=== PATIENT | female | born 1940 | race Two or more races ===

== ENCOUNTER 2017-01-20 06:59 | Emergency (ER) | payer MEDICARE ==
[2017-01-20 07:06] VITALS: RESP 18
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
[2017-01-20 08:43] VITALS: BP 140/65; PULSE 70; TEMP 97.8
== END 2017-01-20 08:52 | disposition home or self-care (01) ==
LOC: EC 06:59
DX: T81.31XA Disruption of external operation (surgical) wound, not elsewhere classified, initial encounter (principal); E78.5 Hyperlipidemia, unspecified; I10 Essential (primary) hypertension; K21.9 Gastro-esophageal reflux disease without esophagitis; F32.9 Major depressive disorder, single episode, unspecified; F17.200 Nicotine dependence, unspecified, uncomplicated; Z79.899 Other long term (current) drug therapy; Z88.0 Allergy status to penicillin; Z88.2 Allergy status to sulfonamides; Z88.5 Allergy status to narcotic agent; Z91.040 Latex allergy status; X58.XXXA Exposure to other specified factors, initial encounter; Y93.89 Activity, other specified
CPT/HCPCS: 87070; 87077; 87186; 87205; 99283

== ENCOUNTER → 2017-02-20 | Outpatient (CLI) | payer MEDICARE ==
--- NOTE | 2017-02-20 12:53 | CT ---
EXAMINATION TYPE: CT ChestAbdPelvis wo con DATE OF EXAM: 02/20/2017 COMPARISON: NONE HISTORY: 77-year-old female with squamous cell carcinoma and left neck mass. TECHNIQUE: Contiguous axial scanning of the chest, abdomen, and pelvis without IV contrast. Coronal a nd sagittal reconstructions performed. CT DLP: 1764 mGycm Automated exposure control for dose reduction was used. FINDINGS: CHEST: Lack of IV contrast limits assessment of the mediastinal, hilar, and vascular structures. The heart is borderline enlarged with trace pericardial fluid. Coronary vessel calcifications are pre sent. Aorta is normal caliber with mild discogenic calcifications. Mildly enlarged mediastinal lymphadenopathy measuring up to 1.4 cm right tracheobronchial angle, 1.1 cm AP window, and 9 mm prevascular space. Diffuse hazy densities throughout the lungs could represent generalized atelectasis. There is mild to moderate upper lung emphysematous change. Flattening of the trachea and mainstem bronchi could refle ct bronchomalacia. Allowing for the extensive hazy densities, no definite suspicious pulmonary nodule is seen. No pleural effusion. ABDOMEN: Lack of IV contrast limits assessment of the solid abdominal viscera, lymph nodes, and vascular struc tures. Liver is enlarged measuring 21.3 cm craniocaudal. Cholecystectomy clips are present. Adrenal glands, spleen, and pancreas show no gross abnormality. Cortical defects involving both kidneys suggest prior infectious or vascular insults. Circumaortic left renal vein. Mild to moderate atherosclerotic calcifications within the abdominal ao rta and iliac arteries. No dilated small bowel, free fluid, or free air. Mild overall stool. A few diverticula in the sigmoid colon. No pericolonic inflammatory change. Pelvis: Bladder is urine distended. Uterus surgically absent. Neither ovary is visualized. No abnormal fluid collection in the pelvis or pelvic lymphadenopathy seen. Bones: Mild degenerative changes at the hips and degenerative changes throughout the lumbar spine. Mild endp late spondylosis mid to lower thoracic spine. No osseous destructive process seen. IMPRESSION: 1. MILDLY ENLARGED MEDIASTINAL LYMPHADENOPATHY MEASURING UP TO 1.4 CM; METASTATIC DISEASE NOT EXCLUDE D. CONSIDER PET CT EVALUATION. 2. MILD TO MODERATE CENTRILOBULAR EMPHYSEMA. THERE IS DIFFUSE HAZY DENSITIES THROUGHOUT THE LUNG SUSP ECTED TO BE SECONDARY TO GENERALIZED ATELECTASIS. 3. HEPATOMEGALY. 4. NOTE THAT THE LACK OF IV CONTRAST DOES DIMINISH THE SENSITIVITY OF THE EXAM.
== END | disposition home or self-care (01) ==
LOC: RADCTMAIN 11:11
PROVIDERS: ATTEND Family Medicine
DX: R59.0 Localized enlarged lymph nodes (principal); J43.9 Emphysema, unspecified; R91.8 Other nonspecific abnormal finding of lung field; R16.0 Hepatomegaly, not elsewhere classified; C44.722 Squamous cell carcinoma of skin of right lower limb, including hip
CPT/HCPCS: 71250; 74176

== ENCOUNTER 2017-02-25 14:35 | Emergency (ER) | payer MEDICARE ==
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
[2017-02-25] MEDS ORDERED: HYDROcodone/APAP 5-325MG 1 EACH TAB PO STA (15:26)
[2017-02-25 16:05] LABS: Basophils # (A) 0.1 k/uL (0-0.2); Basophils % (A) 1 %; CH 33.4; CHCM 33.2; Eosinophils # (A) 0.1 k/uL (0-0.7); Eosinophils % (A) 1 %; HCT 45.1 % (34.0-46.0); Luc # (Auto) 0.14; Luc % (Auto) 3; Lymphocytes # (A) 1.8 k/uL (1.0-4.8); Lymphocytes % (A) 32 %; MCH 33.5 pg (25.0-35.0); MCHC 33.2 g/dL (31.0-37.0); Macrocytosis Slight; Mean Platelet Volume 7.5; Monocytes # (A) 0.3 k/uL (0-1.0); Monocytes % (A) 5 %; Neutrophils # (A) 3.2 k/uL (1.3-7.7); Neutrophils % (A) 58 %; RBC 4.47 m/uL (3.80-5.40); RDW 14.1 % (11.5-15.5); WBC 5.5 k/uL (3.8-10.6); WBC (Perox) 5.01
[2017-02-25 16:15] LABS: Glucose 107 mg/dL (74-99); Total Protein 7.5 g/dL (6.3-8.2)
[2017-02-25 16:16] LABS: ALT 62 U/L (9-52); AST 52 U/L (14-36); Alkaline Phosphatase 105 U/L (38-126); Anion Gap 10 mmol/L; Blood Urea Nitrogen 16 mg/dL (7-17); Calcium 9.4 mg/dL (8.4-10.2); Carbon Dioxide 21 mmol/L (22-30); Chloride 112 mmol/L (98-107); Non-African American GFR(MDRD) 54 (>60 ml/min/1.73 sqM); Potassium 4.7 mmol/L (3.5-5.1); Sodium 143 mmol/L (137-145); Total Bilirubin 0.5 mg/dL (0.2-1.3)
[2017-02-25 16:17] LABS: Appearance,Urine Clear (Clear); Bilirubin,Urine Negative (Negative); Glucose,Urine (UA) Negative (Negative); Ketones,Urine Negative (Negative); Leukocyte Esterase,Urine Negative (Negative); Mucus,Urine Rare /hpf; Nitrite,Urine Negative (Negative); Particle Count 1115; Protein,Urine 1+ (Negative); Specific Gravity,Urine 1.016 (1.001-1.035); Squamous Epithelial Cell,Urine 1 /hpf (0-4); UA Billing (MACRO vs. MICRO) MICRO; Urobilinogen,Urine <2.0 mg/dL (<2.0); WBC,Urine 6 /hpf (0-5)
[2017-02-25 17:19] VITALS: BP 161/77; PULSE 67; RESP 14; TEMP 97.9
== END 2017-02-25 17:18 | disposition home or self-care (01) ==
LOC: EC 14:35
DX: M54.5 Low back pain (principal); R10.9 Unspecified abdominal pain; M25.551 Pain in right hip; K21.9 Gastro-esophageal reflux disease without esophagitis; E78.5 Hyperlipidemia, unspecified; I10 Essential (primary) hypertension; F32.9 Major depressive disorder, single episode, unspecified; F17.200 Nicotine dependence, unspecified, uncomplicated; Z79.899 Other long term (current) drug therapy; Z88.5 Allergy status to narcotic agent; Z91.040 Latex allergy status; Z88.0 Allergy status to penicillin; Z88.2 Allergy status to sulfonamides; Z86.711 Personal history of pulmonary embolism
CPT/HCPCS: 36415; 80053; 81001; 85025; 87086; 99283

== ENCOUNTER → 2017-05-17 | Outpatient (CLI) | payer MEDICARE ==
[2017-05-17 13:00] LABS: Blood Urea Nitrogen 13 mg/dL (7-17); Non-African American GFR(MDRD) 53 (>60 ml/min/1.73 sqM)
--- NOTE | 2017-05-17 14:23 | CT ---
EXAMINATION TYPE: CT chest w con DATE OF EXAM: 05/17/2017 COMPARISON: CT chest, abdomen, and pelvis dated 02/20/2017 HISTORY: Squamous cell carcinoma - Rt Leg, Nodules in Lung, emphysema CT DLP: 585.10 mGycm. Automated Exposure Control for Dose Reduction was Utilized. TECHNIQUE: CT scan of the thorax is performed following with IV Contrast, patient injected with 100m l mL of Visipaque 320. FINDINGS: LUNGS: There is redemonstration of mild to moderate centrilobular emphysematous changes. Scattered ar eas of atelectasis are again seen throughout the lungs. No focal consolidation, pleural effusion or p neumothorax is seen. No pulmonary mass is identified. There is no pleural effusion or pneumothorax se en. The tracheobronchial tree is patent. MEDIASTINUM: When measured in a similar fashion and a similar plane there is overall stability of the enlarged mediastinal lymph nodes with the largest in the pretracheal space measuring 1.5 cm in short axis and the other 2 prominent lymph nodes in the prevascular space measuring 9 mm each. Trace peric ardial effusion has resolved. Heart is again borderline in size. Thoracic aorta is of normal caliber with minimal ossific atheromatous changes. Mild coronary artery calcifications are also evident. The previously seen flattening of the main stem bronchi and trachea is no longer evident. Finding may hav e related to the patient's known underlying COPD versus bronchomalacia. OTHER: Within the visualized upper abdomen there is cortical renal atrophy with a lobulated margin of the renal contours which may relate to multiple remote injuries versus lobulation. The liver i s diffusely hypoattenuated in comparison to the attenuation of the spleen compatible with hepatocellu lar disease/hepatic steatosis. Additionally there is somewhat nodular contour the liver which may rep resent underlying hepatocellular disease. No enlargement of the portal vein. Cholecystectomy clips ar e seen. Adrenal glands are unremarkable. Multilevel degenerative change of the thoracic spine is note d, mild in degree. IMPRESSION: 1. Stability of the mildly enlarged mediastinal lymph nodes that are nonspecific. Again PET CT could be considered for evaluation. Alternatively surveillance is recommended if PET/CT is forgone. 2. Similar mild to moderate centrilobular emphysema with areas of scattered subsegmental atelectasis. No pulmonary mass or new identified pulmonary nodule. 3. Suggestion of hepatocellular disease and/or hepatic steatosis.
== END ==
LOC: RADCTMAIN 12:12
PROVIDERS: ATTEND Internal Medicine Hematology & Oncology
DX: C44.722 Squamous cell carcinoma of skin of right lower limb, including hip (principal); J98.11 Atelectasis
CPT/HCPCS: 82565; 84520; 71260; Q9967

== ENCOUNTER → 2017-11-15 | Outpatient (CLI) | payer MEDICARE ==
--- NOTE | 2017-11-15 14:09 | CT ---
EXAMINATION TYPE: CT chest w con DATE OF EXAM: 11/15/2017 COMPARISON: 05/17/2017 HISTORY: Patient has no complaints at time of study. Follow up study for known lung nodules per peter ent. Lymphadenopathy. CT DLP: 538.1 mGycm Automated exposure control for dose reduction was used. CONTRAST: CT scan of the chest is performed with IV Contrast, patient injected with 80 mL of Isovue 300. FINDINGS: LUNGS: There is redemonstration of mild to moderate centrilobular emphysematous changes. Scattered ar eas of atelectasis are again seen throughout the lungs. No focal consolidation, pleural effusion or p neumothorax is seen. No pulmonary mass is identified. There is no pleural effusion or pneumothorax se en. The tracheobronchial tree is patent. 2 mm nodule at the left lung base is stable. 2 small to dominga acterize MEDIASTINUM: When measured in a similar fashion and a similar plane there is overall stability of the enlarged mediastinal lymph nodes with the largest in the pretracheal space measuring 1.5 cm in short axis and the other 2 prominent lymph nodes in the prevascular space measuring 9 mm each. Trace peric ardial effusion has resolved. Heart is mildly enlarged and there is a trace of pericardial fluid. Thoracic aorta is of normal caliber with minimal ossific atheromatous changes. Mild coronary artery calcifications are also evident. OTHER: Within the visualized upper abdomen there is cortical renal atrophy with a lobulated margin o f the renal contours which may relate to multiple remote injuries versus lobulation. The liver is diffusely hypoattenuated in comparison to the attenuation of the spleen compatible with hepatocell ular disease/hepatic steatosis. Additionally there is somewhat nodular contour the liver which may represent underlying hepatocellula r disease. No enlargement of the portal vein. Cholecystectomy clips are seen. There is stable thickening of the left adrenal gland correlate for hyperplasia. Multilevel degenerative change of the thoracic spine is noted, mild in degree. IMPRESSION: 1. Lymphadenopathy within the mediastinum is stable. 2. Diffuse centrilobular seen appears stable. 3. Correlate for hepatic steatosis or hepatocellular disease. 4. Left lower lobe 2 mm nodule stable.
== END | disposition home or self-care (01) ==
LOC: RADCTMAIN 11:16
PROVIDERS: ATTEND Internal Medicine Hematology & Oncology
DX: C44.722 Squamous cell carcinoma of skin of right lower limb, including hip (principal); R91.1 Solitary pulmonary nodule; R59.0 Localized enlarged lymph nodes; Z91.040 Latex allergy status
CPT/HCPCS: 82565; 84520; 71260; 36415; Q9967

== ENCOUNTER → 2017-12-19 | Outpatient (CLI) | payer MEDICARE ==
--- NOTE | 2017-12-19 13:26 | CT ---
EXAMINATION TYPE: CT chest w con DATE OF EXAM: 12/19/2017 COMPARISON: CT chest November 15, 2017 and older studies. HISTORY: Mediastinal Lymphadenopathy CT DLP: 709 mGycm Automated exposure control for dose reduction was used. CONTRAST: CT scan of the chest is performed with IV Contrast, patient injected with 80 mL of Isovue 300. FINDINGS: LUNGS: There is underlying emphysematous change with bilateral right apical bleb formation redemonstr ated. No suspicious new greater than 5 mm parenchymal nodule or mass is present. No pleural effusion or pneumothorax is seen bilaterally. Tracheobronchial tree is patent. MEDIASTINUM: There are persistent prominent thoracic lymph nodes. Largest pretracheal/pericarinal lym ph node measures 1.5 x 1.4 cm on axial image 29 significant change from initial study February 20, 2017. Other lymph nodes are felt stable. No cardiomegaly or pericardial effusion is seen. Lipomatous hype rtrophy of interarterial septum is redemonstrated seen best axial image 31. Coronary artery calcifica tion is present which is noted marker for coronary artery disease. OTHER: Liver is diffusely low dense consistent with fatty infiltration. Cholecystectomy clips are re demonstrated. There is persistent lobulation and cortical atrophy in both kidneys. There is moderate to severe multilevel spurring in the spine redemonstrated.. IMPRESSION: Stable thoracic adenopathy since February 20, 2017 study. No new mass or adenopathy is prese nt.
== END | disposition home or self-care (01) ==
LOC: RADCTMAIN 11:25
PROVIDERS: ATTEND Internal Medicine Critical Care Medicine
DX: R59.0 Localized enlarged lymph nodes (principal)
CPT/HCPCS: 82565; 84520; 71260; 36415; Q9967

== ENCOUNTER 2018-04-02 21:04 | Inpatient (IN) | payer MEDICARE ==
[2018-04-02] MEDS ORDERED: methylPREDNISolone SOD SUCCI 125 MG/2 ML VIAL IV STA (21:06)
[2018-04-02] MEDS ORDERED: ALBUTEROL NEBULIZED 2.5 MG/3 ML INHALATION STA (21:06)
[2018-04-02] MEDS ORDERED: IPRATROPIUM 0.5 MG/2.5 ML NEBU INHALATION STA (21:06)
[2018-04-02 21:28] LABS: Basophils % (A) 0 %; Eosinophils # (A) 0.1 k/uL (0-0.7); Eosinophils % (A) 1 %; HCT 48.2 % (34.0-46.0); Lymphocytes # (A) 3.1 k/uL (1.0-4.8); Lymphocytes % (A) 25 %; MCH 32.5 pg (25.0-35.0); MCHC 31.1 g/dL (31.0-37.0); MCV 104.6 fL (80.0-100.0); Macrocytosis Slight; Mean Platelet Volume 7.1; Monocytes # (A) 0.7 k/uL (0-1.0); Monocytes % (A) 6 %; Neutrophils # (A) 8.1 k/uL (1.3-7.7); Neutrophils % (A) 66 %; Platelet Count 291 k/uL (150-450); RBC 4.61 m/uL (3.80-5.40); RDW 14.2 % (11.5-15.5); WBC 12.3 k/uL (3.8-10.6)
[2018-04-02 21:42] LABS: Albumin 5.1 g/dL (3.5-5.0); Calcium 10.2 mg/dL (8.4-10.2); Potassium 4.5 mmol/L (3.5-5.1); Total Bilirubin 0.4 mg/dL (0.2-1.3); Total Protein 8.4 g/dL (6.3-8.2)
[2018-04-02] MEDS ORDERED: SODIUM CHLORIDE 0.9% 1,000 ML IV ONE ×2 (21:43→22:33)
[2018-04-02 21:48] LABS: Creatine Kinase 88 U/L (30-135)
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
[2018-04-02 22:00] LABS: Creatine Kinase MB 1.8 ng/mL (0.0-2.4); Troponin I <0.012 ng/mL (0.000-0.034)
--- NOTE | 2018-04-02 22:01 | XR ---
EXAMINATION: XR chest 2V DATE AND TIME: 04/02/2018 9:30 PM ORDERING PROVIDER: Dash Osman MD CLINICAL INDICATION: difficulty breathing TECHNIQUE: AP and lateral COMPARISON: None. DESCRIPTION: There is silhouetting of the right heart border with evidence of consolidative opacity in the right i nfrahilar position. This can correlate with a clinical diagnosis of right middle lobe medial segment and or right medial lower lobe pulmonary infiltration. The pleural spaces are negative. The cardiac silhouette appears mild moderately enlarged. The skeletal structures are intact without focal findings. The overlying soft tissues are prominent. IMPRESSION: Findings suggest right infrahilar pulmonary infiltration; would suggest six-week follow-up radiograph s to prove resolution.
[2018-04-02] MEDS ORDERED: HYDROcodone/APAP 5-325MG 1 EACH TAB PO STA (22:31)
[2018-04-02] MEDS ORDERED: LEVOFLOXACIN 500MG-D5W PMX 500 MG in DEXTROSE/WATER 1 100ML.BAG IVPB STA (22:34)
[2018-04-02] MEDS: SODIUM CHLORIDE 0.9% 1,000 ML IV SCH (22:44)
[2018-04-02] MEDS ORDERED: IPRATROPIUM-ALBUTEROL 3 ML NEB INHALATION PRN (23:14)
[2018-04-02] MEDS ORDERED: SODIUM CHLORIDE 0.9% 500 ML IV ONE (23:16)
[2018-04-03] MEDS: methylPREDNISolone SOD SUCCI 125 MG/2 ML VIAL IV SCH ×5 (00:42→23:06)
[2018-04-03] MEDS: ALPRAZolam 0.25 MG TAB PO PRN ×3 (02:03→22:17)
[2018-04-03] MEDS ORDERED: MORPHINE SULFATE 4 MG/ML SYRINGE IVP STA (03:48)
[2018-04-03] MEDS: IPRATROPIUM-ALBUTEROL 3 ML NEB INHALATION SCH ×4 (07:35→20:37)
[2018-04-03 08:06] LABS: Basophils % (A) 0 %; Eosinophils % (A) 0 %; HCT 40.8 % (34.0-46.0); HGB 13.2 gm/dL (11.4-16.0); Hypochromasia Slight; Lymphocytes % (A) 13 %; MCH 33.9 pg (25.0-35.0); MCHC 32.3 g/dL (31.0-37.0); MCV 105.1 fL (80.0-100.0); Macrocytosis Moderate; Mean Platelet Volume 7.2; Monocytes # (A) 0.2 k/uL (0-1.0); Monocytes % (A) 3 %; Neutrophils # (A) 6.5 k/uL (1.3-7.7); Neutrophils % (A) 84 %; Platelet Count 206 k/uL (150-450); RBC 3.88 m/uL (3.80-5.40); RDW 13.7 % (11.5-15.5); WBC 7.7 k/uL (3.8-10.6)
[2018-04-03 08:21] LABS: Calcium 8.7 mg/dL (8.4-10.2); Potassium 4.9 mmol/L (3.5-5.1); Total Bilirubin 0.3 mg/dL (0.2-1.3); Total Protein 6.9 g/dL (6.3-8.2)
[2018-04-03] MEDS ORDERED: LEVOFLOXACIN 500 MG TAB PO SCH (09:00)
[2018-04-03] MEDS: FAMOTIDINE 20 MG TAB PO SCH ×2 (09:09→22:17)
[2018-04-03] MEDS: DOCUSATE 100 MG CAP PO SCH ×2 (09:09→22:17)
[2018-04-03] MEDS: amLODIPine 5 MG TAB PO SCH (09:09)
[2018-04-03] MEDS: metFORMIN 500 MG TAB PO SCH ×2 (09:09→22:18)
[2018-04-03] MEDS: HYDROCHLOROTHIAZIDE 25 MG TAB PO SCH (09:10)
[2018-04-03] MEDS: POLYETHYLENE GLYCOL 3350 17 GM POWD.PACK PO SCH (09:15)
[2018-04-03] MEDS: SODIUM CHLORIDE 0.9% 1,000 ML IV SCH ×2 (11:26→15:17)
[2018-04-03] MEDS ORDERED: SODIUM CHLORIDE 0.9% 500 ML IV ONE (11:51)
[2018-04-03] MEDS: HYDROcodone/APAP 5-325MG 1 EACH TAB PO PRN ×3 (12:12→22:18)
[2018-04-03] MEDS: INSULIN ASPART 100 UNIT/ML 1 ML 10 ML VIAL SQ SCH ×4 (12:45→22:17)
[2018-04-03] MEDS ORDERED: SODIUM CHLORIDE 0.9% 1,000 ML IV ONE (14:01)
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
[2018-04-03] MEDS: HEPARIN SODIUM,PORCINE 5,000 UNIT/ML 1 ML VIAL SQ SCH ×2 (16:34→23:07)
[2018-04-03 16:38] LABS: Glucose,Whole Blood 287 mg/dL (75-99)
[2018-04-03 16:39] LABS: Glucose,Whole Blood 199 mg/dL (75-99)
[2018-04-03 16:40] LABS: Glucose,Whole Blood 365 mg/dL (75-99)
[2018-04-03] MEDS ORDERED: INSULIN REGULAR 100 UNIT/ML VIAL SQ SCH (17:30)
[2018-04-03 18:21] LABS: Hemoglobin A1C 6.7 % (4.0-6.0)
[2018-04-03 20:05] LABS: Glucose,Whole Blood 180 mg/dL (75-99)
[2018-04-03] MEDS: MIRTAZAPINE 15 MG TAB PO SCH (22:18)
[2018-04-03] MEDS: PRAVASTATIN SODIUM 80 MG TAB PO SCH (22:18)
[2018-04-04] MEDS: methylPREDNISolone SOD SUCCI 125 MG/2 ML VIAL IV SCH ×4 (05:19→23:02)
[2018-04-04] MEDS: HYDROcodone/APAP 5-325MG 1 EACH TAB PO PRN ×4 (05:30→22:41)
[2018-04-04 06:11] LABS: Basophils % (A) 0 %; Eosinophils # (A) 0.1 k/uL (0-0.7); Eosinophils % (A) 1 %; HGB 12.2 gm/dL (11.4-16.0); Hypochromasia Slight; Lymphocytes # (A) 0.9 k/uL (1.0-4.8); Lymphocytes % (A) 11 %; MCH 33.5 pg (25.0-35.0); MCHC 31.4 g/dL (31.0-37.0); MCV 106.6 fL (80.0-100.0); Macrocytosis Moderate; Mean Platelet Volume 7.5; Monocytes # (A) 0.3 k/uL (0-1.0); Monocytes % (A) 4 %; Neutrophils # (A) 7.2 k/uL (1.3-7.7); Neutrophils % (A) 83 %; Platelet Count 209 k/uL (150-450); RBC 3.66 m/uL (3.80-5.40); RDW 14.2 % (11.5-15.5); WBC 8.6 k/uL (3.8-10.6)
[2018-04-04 06:20] LABS: Albumin 3.7 g/dL (3.5-5.0); Calcium 8.9 mg/dL (8.4-10.2); Potassium 4.6 mmol/L (3.5-5.1); Total Bilirubin 0.3 mg/dL (0.2-1.3); Total Protein 6.3 g/dL (6.3-8.2)
[2018-04-04 07:17] LABS: Glucose,Whole Blood 224 mg/dL (75-99)
[2018-04-04] MEDS: HEPARIN SODIUM,PORCINE 5,000 UNIT/ML 1 ML VIAL SQ SCH ×3 (07:33→23:02)
[2018-04-04] MEDS: HYDROCHLOROTHIAZIDE 25 MG TAB PO SCH (07:34)
[2018-04-04] MEDS: FAMOTIDINE 20 MG TAB PO SCH (07:34)
[2018-04-04] MEDS: amLODIPine 5 MG TAB PO SCH (07:34)
[2018-04-04] MEDS: DOCUSATE 100 MG CAP PO SCH ×2 (07:34→22:42)
[2018-04-04] MEDS: ALPRAZolam 0.25 MG TAB PO PRN ×3 (07:34→22:41)
[2018-04-04] MEDS: metFORMIN 500 MG TAB PO SCH ×2 (07:34→22:43)
[2018-04-04] MEDS: POLYETHYLENE GLYCOL 3350 17 GM POWD.PACK PO SCH (07:35)
[2018-04-04] MEDS: IPRATROPIUM-ALBUTEROL 3 ML NEB INHALATION SCH ×5 (07:35→20:32)
[2018-04-04] MEDS: INSULIN ASPART 100 UNIT/ML 1 ML 10 ML VIAL SQ SCH ×7 (07:40→22:42)
--- NOTE | 2018-04-04 08:26 | XR ---
EXAMINATION TYPE: XR chest 2V DATE OF EXAM: 04/04/2018 COMPARISON: 04/02/2018 TECHNIQUE: PA and lateral views submitted. HISTORY: Difficulty breathing FINDINGS: Increased interstitial findings noted. Heart size stable. Atherosclerotic change aorta. Clip overlyin g the left lung apex. Biapical pleural thickening. Subsegmental linear changes at both lung bases. IMPRESSION: 1. Linear changes at both lung bases suggestive of atelectasis. 2. Coarsened interstitium correlate for interstitial pneumonitis or venous congestion.
[2018-04-04] MEDS ORDERED: LEVOFLOXACIN 500 MG TAB PO SCH (09:00)
[2018-04-04] MEDS: SODIUM CHLORIDE 0.9% 1,000 ML IV SCH ×2 (10:14→22:41)
[2018-04-04 11:21] LABS: Glucose,Whole Blood 136 mg/dL (75-99)
--- NOTE | 2018-04-04 15:43 | P.PN ---
Subjective Progress Note Date: 04/04/18 Principal diagnosis: Acute exacerbation of chronic obstructive pulmonary disease. This is a 78-year-old female patient who got hospitalized because of increased cough shortness of breath wheezing over the past few days. She also developed some skeletal chest wall pain due to extensive cough and especially in lower lung man bilaterally more so on the right. Her chest x-ray showing COPD findings without any acute pulmonary infiltrates or pneumonias. No significant leukocytosis. Lactic acid level was 4.6 at time of admission. Cardiac enzymes including troponins are negative, BNP is at 546. The patient is known to me. I 've seen her in the past in my office for mediastinal lymphadenopathy. The patient was being monitored by serial CAT scans. Her last CAT scan of the chest was done on 11/15 2017 and the patient had a stable mediastinal lymph node in addition to a stable left lower lobe pulmonary nodule. This was compared to the earlier CAT scan that was done on 11/15/2017 and 05/17/2017. Based on the stability, no attempts for bronchoscopy was done. Nevertheless, the patient was counseled for smoking cessation she was offered Chantix. She failed to quit smoking and she's been smoking approximately 1 pack of cigarettes a day. She has a nebulizer at home and she has been using DuoNeb nebulized treatments around the clock on as-needed basis. Patient is seen again today 04/04/2018 in follow-up on the regular medical floor. She is currently awake and alert in no acute distress. He's been up ambulating in her room. She is breathing quite a bit easier today as compared to yesterday. Still not quite back to her baseline. She is maintaining good O2 saturations in the 90s on 3 L/m per nasal cannula. She's afebrile. Hemodynamically stable. Blood and sputum cultures reveal no growth to date. White count 8.6. Hemoglobin 12.2. Creatinine 1.00. Lactic acid 2.6. Objective - Vital Signs Vital signs: Vital Signs Temp 97.7 F 04/04/18 05:00 Pulse 95 04/04/18 11:31 Resp 16 04/04/18 05:00 BP 152/68 04/04/18 05:00 Pulse Ox 95 04/04/18 05:00 Intake & Output 04/03/18 04/04/18 04/04/18 18:59 06:59 18:59 Intake Total 1989 800 Balance 1989 800 Intake: Intake, IV Titration 800 800 Amount Sodium Chloride 0.9% 1, 800 800 000 ml @ 100 mls/hr IV . Q10H [facility] Rx#:[id number] Oral 1190 Other: Voiding Method Toilet Toilet # Voids 1 2 4 - Exam General Appearance no diaphoresis, no respiratory distress, speech not interrupted by breaths, no dyspnea, no pallor, not cachectic, well nourished, appears well, obesity HEENT no pursed lip breathing, no jugular venous distention, no mucous membrane cyanosis, no perioral cyanosis, mallampati classification: class 1 Chest no barrel chest, no retractions, no sternocleidomastoid muscle contractions, no supraclavicular retractions, no intercostal retractions, prolonged expiratory wheezing, decreased air movement, no rhonchi, no hyperinflation, (normal) adventitious sounds: rales / crackles: bilaterally: midlung man, decreased air movement Heart no right ventricular heave, no distant heart sounds, no s3 gallop, (normal ) jugular vein: jugular venous distention: by 0cm, (normal) jugular vein GI bowel sounds: hyperactive (borborygmi), bowel sounds: diminished or absent Extremities no cyanosis, no clubbing, no edema Neurologic no decreased mental status, no somnolence, no confusion Assisstive Devices: ambulates with no assitive devices Gait and Mobility: gait WNL, full weight bearing Skin General Appearance normal, (normal) normal except as noted - Labs CBC & Chem 7: 04/04/18 05:56 04/04/18 05:56 Labs: Abnormal Lab Results - Last 24 Hours (Table) 04/03/18 04/03/18 04/03/18 Range/Units 07:42 12:24 14:17 RBC (3.80-5.40) m/uL MCV (80.0-100.0) fL Lymphocytes # (1.0-4.8) k/uL BUN (7-17) mg/dL Glucose (74-99) mg/dL POC Glucose (mg/dL) 365 H 287 H (75-99) mg/dL Hemoglobin A1c 6.7 H (4.0-6.0) % Plasma Lactic Acid David (0.7-2.0) mmol/L 04/03/18 04/03/18 04/04/18 Range/Units 16:18 20:03 05:56 RBC 3.66 L (3.80-5.40) m/uL MCV 106.6 H (80.0-100.0) fL Lymphocytes # 0.9 L (1.0-4.8) k/uL BUN (7-17) mg/dL Glucose (74-99) mg/dL POC Glucose (mg/dL) 199 H 180 H (75-99) mg/dL Hemoglobin A1c (4.0-6.0) % Plasma Lactic Acid David (0.7-2.0) mmol/L 04/04/18 04/04/18 04/04/18 Range/Units 05:56 07:16 07:56 RBC (3.80-5.40) m/uL MCV (80.0-100.0) fL Lymphocytes # (1.0-4.8) k/uL BUN 29 H (7-17) mg/dL Glucose 248 H (74-99) mg/dL POC Glucose (mg/dL) 224 H (75-99) mg/dL Hemoglobin A1c (4.0-6.0) % Plasma Lactic Acid David 2.8 H* (0.7-2.0) mmol/L 04/04/18 04/04/18 Range/Units 11:20 11:46 RBC (3.80-5.40) m/uL MCV (80.0-100.0) fL Lymphocytes # (1.0-4.8) k/uL BUN (7-17) mg/dL Glucose (74-99) mg/dL POC Glucose (mg/dL) 136 H (75-99) mg/dL Hemoglobin A1c (4.0-6.0) % Plasma Lactic Acid David 2.6 H* (0.7-2.0) mmol/L Microbiology - Last 24 Hours (Table) 04/04/18 08:00 Gram Stain - Preliminary Sputum Sputum Culture - Preliminary 04/02/18 21:17 Blood Culture - Preliminary Blood No Growth after 24 hours Assessment and Plan Assessment: Assessment 1 acute COPD exacerbation with secondary shortness of breath. 2 skeletal chest wall pain secondary to cough and 3 chronic smoker 4 Mediastinal lymphadenopathy which is being followed up on outpatient basis by serial CAT scan of the chest, no evidence of any malignancy thus far 5 remote history of pulmonary embolism post hysterectomy many years back 6 obesity. 7 skin cancer 8 hyperlipidemia 9 hypertension 10 diverticular disease 11 degenerative arthritis 12 grief due to the recent loss of a niece and the patient once to be released by Sunday to attend the . Plan 1 The patient was seen and evaluated by Dr. Lira. She is improved today as compared to yesterday. Still not quite back to her baseline. We'll continue with DuoNeb inhalations, IV Solu-Medrol. Add Symbicort. Continue Levaquin. She is again educated regarding the importance of complete smoking cessation. We'll increase her activity as tolerated. We'll continue to follow. I, the cosigning physician, performed a history & physical examination of the patient. Lungs sounds with faint end expiratory wheeze. Diminished. Maintaining good O2 saturations in the 90s on 3 L/m per nasal cannula. I discussed the assessment and plan of care with my nurse practitioner, Yessi Mayberry. I attest to the above note as dictated by her.
[2018-04-04 17:26] LABS: Glucose,Whole Blood 216 mg/dL (75-99)
[2018-04-04 20:11] LABS: Glucose,Whole Blood 89 mg/dL (75-99)
[2018-04-04] MEDS: SYMBICORT 160-4.5 MCG INHALER INHALATION SCH (20:32)
--- NOTE | 2018-04-04 21:37 | P.PN ---
Subjective Progress Note Date: 04/04/18 78-year-old female who presented to the emergency room with a chief complaint of shortness of breath and cough. Patient reports she started feeling short of breath last week. She went to see Dr. Main, her PCP on 2017. She was prescribed antibiotics and a steroid taper. She also complained of increased swelling to her lower extremities. She was given a dose of lasix at that time also. Patient reports her symptoms did not improve so she came to the ER for evaluation. She denies fever or chills. Denies nausea or vomiting. Denies chest pain or pressure. Patient states she has been having regular bowel movements and does not feel constipated. Denies diarrhea. The patient is also very emotional because she was caring for her niece, Kimberlyn, recently who was in hospice secondary to cancer and was staying at her house. She reports her niece on Sunday. The patient feels like she did not do enough for her niece and is feeling very guilty. The patient has a history of COPD, diabetes, GERD, hyperlipidemia, hypertension , chronic back pain secondary to degenerative disc disease, and pulmonary embolus. the patient also reports a history of anxiety and depression. Chest x-ray: findings suggest right infrahilar pulmonary infiltration. Could correlate with diagnosis of right middle lobe medial segment in her right medial lower lobe pulmonary infiltration. Laboratory data upon admission reveals white count of 12.3. Hemoglobin 15.0. Platelet count 291. Sodium 141. Potassium 4.5. BUN 25. Creatinine 1.0. glucose 215. Lactic acid 4.6. AST 65. ALT 71. Magnesium 2.0. troponin negative 1. BNP 546. The patient was admitted to the hospital under the care of Dr. Main. Consultations were placed to pulmonary. 04/04/2018 Patient seen and examined at the bedside. Patient states her breathing has improved since yesterday. She continues to cough frequently. Patient is on 3L NC with oxygen saturations greater than 92%. Patient does not wear home oxygen. Will reassess closer to discharge. Lactic acid this AM is 2.9. Patient received an additional 1.5L in fluid boluses yesterday and has IV fluids running at 100cc /hr. Repeat CXR this morning reveals linear changes at both lung bases suggestive of atelectasis. Coarsened interstititum correlate for interstitial pneumonitis or venous congestion. Patient states her appetite is good. Denies nausea or vomiting. Denies chest pain or pressure. She does report chronic back pain worsened by hospital bed. Patient states she wants to be discharged from the hospital this weekend at the latest to attend her nieces on Sunday. Objective - Vital Signs Vital signs: Vital Signs Temp 97.7 F 04/04/18 05:00 Pulse 94 04/04/18 07:45 Resp 16 04/04/18 05:00 BP 152/68 04/04/18 05:00 Pulse Ox 95 04/04/18 05:00 Intake & Output 04/03/18 04/04/18 04/04/18 18:59 06:59 18:59 Intake Total 1989 Balance 1989 Intake: Intake, IV Titration 800 Amount Sodium Chloride 0.9% 1, 800 000 ml @ 100 mls/hr IV . Q10H [facility] Rx#:[id number] Oral 1190 Other: Voiding Method Toilet # Voids 1 2 - Exam GENERAL: This is a 78-year-old female in no apparent distress at the time of examination. Pleasant and cooperative. HEENT: Head is atraumatic, normocephalic. Pupils are equal, round, and reactive to light. Sclerae anicteric. Conjunctivae are clear. Mucus membranes of the mouth are moist. Neck is supple. RESPIRATORY: Lungs with rhonchi throughout. Expiratory wheezing noted throughout lung man. No rales noted. Frequent nonproductive cough noted. No use of accessory muscles. Patient maintaining oxygen saturation greater than 92 %. No chest wall tenderness is noted on palpation or with deep breathing. CARDIOVASCULAR: Regular rate and rhythm. S1 and S2 noted. No systolic or diastolic murmur auscultated. No JVD noted. No S3 or S4 noted. GASTROINTESTINAL: Abdomen soft and round. Normal active bowel sounds auscultated x 4 quadrants. No pain or tenderness noted upon palpation. INTEGUMENTARY: No cyanosis. No jaundice. No rashes noted. No cellulitis noted. EXTREMITIES: 2+ peripheral pulses. 1+ bilateral LE edema. No calf tenderness noted. NEUROLOGIC: Cranial nerves II-XII intact. PSYCHIATRIC: Awake, alert, and oriented X 3. Appropriate affect. Intact judgement and insight. - Labs CBC & Chem 7: 04/04/18 05:56 04/04/18 05:56 Labs: Abnormal Lab Results - Last 24 Hours (Table) 04/03/18 04/03/18 04/03/18 Range/Units 07:42 11:43 12:24 RBC (3.80-5.40) m/uL MCV (80.0-100.0) fL Lymphocytes # (1.0-4.8) k/uL BUN (7-17) mg/dL Glucose (74-99) mg/dL POC Glucose (mg/dL) 365 H (75-99) mg/dL Hemoglobin A1c 6.7 H (4.0-6.0) % Plasma Lactic Acid David 2.9 H* (0.7-2.0) mmol/L 04/03/18 04/03/18 04/03/18 Range/Units 14:17 16:18 20:03 RBC (3.80-5.40) m/uL MCV (80.0-100.0) fL Lymphocytes # (1.0-4.8) k/uL BUN (7-17) mg/dL Glucose (74-99) mg/dL POC Glucose (mg/dL) 287 H 199 H 180 H (75-99) mg/dL Hemoglobin A1c (4.0-6.0) % Plasma Lactic Acid David (0.7-2.0) mmol/L 04/04/18 04/04/18 04/04/18 Range/Units 05:56 05:56 07:16 RBC 3.66 L (3.80-5.40) m/uL MCV 106.6 H (80.0-100.0) fL Lymphocytes # 0.9 L (1.0-4.8) k/uL BUN 29 H (7-17) mg/dL Glucose 248 H (74-99) mg/dL POC Glucose (mg/dL) 224 H (75-99) mg/dL Hemoglobin A1c (4.0-6.0) % Plasma Lactic Acid David (0.7-2.0) mmol/L 04/04/18 Range/Units 07:56 RBC (3.80-5.40) m/uL MCV (80.0-100.0) fL Lymphocytes # (1.0-4.8) k/uL BUN (7-17) mg/dL Glucose (74-99) mg/dL POC Glucose (mg/dL) (75-99) mg/dL Hemoglobin A1c (4.0-6.0) % Plasma Lactic Acid David 2.8 H* (0.7-2.0) mmol/L Microbiology - Last 24 Hours (Table) 04/02/18 21:17 Blood Culture - Preliminary Blood No Growth after 24 hours Assessment and Plan Plan: ASSESSMENT: Community acquired pneumonia, CXR reveals right infrahilar pulmonary infiltration, ruled out per pulmonary Acute exacerbation of chronic obstructive pulmonary disease Diabetes Mellitus, type II Steroid-induced hyperglycemia Hypertension Hyperlipidemia GERD History of PE Chronic back pain secondary to DDD History of anxiety and depression Nicotine dependence Obesity: BMI 35.1 Mildly elevated LFTs sepsis, ruled out lactic acidosis, improving PLAN: Pulmonary on consult. Appreciate recommendations and input Continue IV steroids: 60mg q6 hours Neubulizer treatments QID and PRN Novolog sliding scale per steroid protocol Sputum culture and blood cultures Continue antibiotics: Levaquin Home meds as appropriate Monitor labs GI prophylaxis: Pepcid 20mg PO BID DVT prophylaxis: Heparin 5000 units subcu every 8 hours Monitor vital signs and address as appropriate Discharge planning: Anticipate patient will return home when stable Further recommendations pending patient's course Nurse practitioner note has been reviewed by physician. Signing provider agrees with the documented findings, assessment, and plan of care.
[2018-04-04] MEDS: MIRTAZAPINE 15 MG TAB PO SCH (22:43)
[2018-04-04] MEDS: PRAVASTATIN SODIUM 80 MG TAB PO SCH (22:43)
[2018-04-05] MEDS: TEMAZEPAM 30 MG CAP PO SCH ×2 (00:01→23:25)
[2018-04-05] MEDS: methylPREDNISolone SOD SUCCI 125 MG/2 ML VIAL IV SCH ×4 (05:38→23:28)
[2018-04-05] MEDS: HYDROcodone/APAP 5-325MG 1 EACH TAB PO PRN ×4 (06:04→21:38)
[2018-04-05 06:58] LABS: Glucose,Whole Blood 175 mg/dL (75-99)
[2018-04-05] MEDS: INSULIN ASPART 100 UNIT/ML 1 ML 10 ML VIAL SQ SCH ×7 (08:18→21:30)
[2018-04-05] MEDS: HYDROCHLOROTHIAZIDE 25 MG TAB PO SCH (08:19)
[2018-04-05] MEDS: amLODIPine 5 MG TAB PO SCH (08:19)
[2018-04-05] MEDS: DOCUSATE 100 MG CAP PO SCH ×2 (08:19→21:31)
[2018-04-05] MEDS: SYMBICORT 160-4.5 MCG INHALER INHALATION SCH ×3 (08:34→20:13)
[2018-04-05] MEDS: IPRATROPIUM-ALBUTEROL 3 ML NEB INHALATION SCH ×5 (08:34→20:13)
[2018-04-05 08:35] LABS: Basophils % (A) 0 %; Eosinophils % (A) 0 %; HCT 40.3 % (34.0-46.0); HGB 12.5 gm/dL (11.4-16.0); Lymphocytes # (A) 0.7 k/uL (1.0-4.8); Lymphocytes % (A) 10 %; MCH 32.7 pg (25.0-35.0); MCV 105.4 fL (80.0-100.0); Macrocytosis Moderate; Mean Platelet Volume 7.2; Monocytes # (A) 0.2 k/uL (0-1.0); Monocytes % (A) 3 %; Neutrophils # (A) 6.1 k/uL (1.3-7.7); Neutrophils % (A) 86 %; Platelet Count 208 k/uL (150-450); RBC 3.83 m/uL (3.80-5.40); RDW 14.2 % (11.5-15.5); WBC 7.1 k/uL (3.8-10.6)
[2018-04-05 08:59] LABS: Albumin 3.8 g/dL (3.5-5.0); Calcium 9.2 mg/dL (8.4-10.2); Potassium 4.6 mmol/L (3.5-5.1); Total Bilirubin 0.5 mg/dL (0.2-1.3); Total Protein 6.5 g/dL (6.3-8.2)
[2018-04-05] MEDS ORDERED: FAMOTIDINE 20 MG TAB PO SCH (09:00)
[2018-04-05] MEDS: SODIUM CHLORIDE 0.9% 1,000 ML IV SCH ×2 (09:07→18:23)
[2018-04-05] MEDS: FAMOTIDINE 20 MG TAB PO SCH ×2 (09:10→21:30)
[2018-04-05] MEDS: ALPRAZolam 0.25 MG TAB PO PRN ×2 (09:10→16:10)
[2018-04-05] MEDS: LEVOFLOXACIN 750MG-D5W PMX 750 MG in DEXTROSE/WATER 1 150ML.BAG IVPB SCH (09:10)
[2018-04-05] MEDS: HEPARIN SODIUM,PORCINE 5,000 UNIT/ML 1 ML VIAL SQ SCH ×3 (09:11→23:26)
[2018-04-05] MEDS: POLYETHYLENE GLYCOL 3350 17 GM POWD.PACK PO SCH (09:12)
[2018-04-05] MEDS: metFORMIN 500 MG TAB PO SCH ×2 (09:12→21:30)
--- NOTE | 2018-04-05 09:21 | P.PN ---
Subjective Progress Note Date: 04/05/18 78-year-old female who presented to the emergency room with a chief complaint of shortness of breath and cough. Patient reports she started feeling short of breath last week. She went to see Dr. Main, her PCP on 2017. She was prescribed antibiotics and a steroid taper. She also complained of increased swelling to her lower extremities. She was given a dose of lasix at that time also. Patient reports her symptoms did not improve so she came to the ER for evaluation. She denies fever or chills. Denies nausea or vomiting. Denies chest pain or pressure. Patient states she has been having regular bowel movements and does not feel constipated. Denies diarrhea. The patient is also very emotional because she was caring for her niece, Kimberlyn, recently who was in hospice secondary to cancer and was staying at her house. She reports her niece on Sunday. The patient feels like she did not do enough for her niece and is feeling very guilty. The patient has a history of COPD, diabetes, GERD, hyperlipidemia, hypertension , chronic back pain secondary to degenerative disc disease, and pulmonary embolus. the patient also reports a history of anxiety and depression. Chest x-ray: findings suggest right infrahilar pulmonary infiltration. Could correlate with diagnosis of right middle lobe medial segment in her right medial lower lobe pulmonary infiltration. Laboratory data upon admission reveals white count of 12.3. Hemoglobin 15.0. Platelet count 291. Sodium 141. Potassium 4.5. BUN 25. Creatinine 1.0. glucose 215. Lactic acid 4.6. AST 65. ALT 71. Magnesium 2.0. troponin negative 1. BNP 546. The patient was admitted to the hospital under the care of Dr. Main. Consultations were placed to pulmonary. 04/04/2018 Patient seen and examined at the bedside. Patient states her breathing has improved since yesterday. She continues to cough frequently. Patient is on 3L NC with oxygen saturations greater than 92%. Patient does not wear home oxygen. Will reassess closer to discharge. Lactic acid this AM is 2.9. Patient received an additional 1.5L in fluid boluses yesterday and has IV fluids running at 100cc /hr. Repeat CXR this morning reveals linear changes at both lung bases suggestive of atelectasis. Coarsened interstititum correlate for interstitial pneumonitis or venous congestion. Patient states her appetite is good. Denies nausea or vomiting. Denies chest pain or pressure. She does report chronic back pain worsened by hospital bed. Patient states she wants to be discharged from the hospital this weekend at the latest to attend her nieces on Sunday. 04/05/2018 Patient seen and examined at the bedside. Patient states her breathing is improved. Patient continues to report nonproductive cough. Patient remains on IV solumedral. She is on 3L NC with oxygen saturations greater than 92%. Patient has been ambulating to the bathroom and in the hallway. Objective - Vital Signs Vital signs: Vital Signs Temp 97.7 F 04/05/18 05:00 Pulse 87 04/05/18 08:44 Resp 16 04/05/18 05:00 BP 137/72 04/05/18 05:00 Pulse Ox 96 04/05/18 05:00 Intake & Output 04/04/18 04/05/18 04/05/18 18:59 06:59 18:59 Intake Total 800 1989 Balance 800 1989 Intake: Intake, IV Titration 800 800 Amount Sodium Chloride 0.9% 1, 800 800 000 ml @ 100 mls/hr IV . Q10H [facility] Rx#:[id number] Oral 1190 Other: Voiding Method Toilet Toilet # Voids 4 2 - Exam GENERAL: This is a 78-year-old female in no apparent distress at the time of examination. Pleasant and cooperative. HEENT: Head is atraumatic, normocephalic. Pupils are equal, round, and reactive to light. Sclerae anicteric. Conjunctivae are clear. Mucus membranes of the mouth are moist. Neck is supple. RESPIRATORY: Expiratory wheezing noted throughout lung man, improved from yesterday. Frequent nonproductive cough noted. No use of accessory muscles. Patient maintaining oxygen saturation greater than 92%. No chest wall tenderness is noted on palpation or with deep breathing. CARDIOVASCULAR: Regular rate and rhythm. S1 and S2 noted. No systolic or diastolic murmur auscultated. No JVD noted. No S3 or S4 noted. GASTROINTESTINAL: Abdomen soft and round. Normal active bowel sounds auscultated x 4 quadrants. No pain or tenderness noted upon palpation. INTEGUMENTARY: No cyanosis. No jaundice. No rashes noted. No cellulitis noted. EXTREMITIES: 2+ peripheral pulses. 1+ bilateral LE edema. No calf tenderness noted. NEUROLOGIC: Cranial nerves II-XII intact. PSYCHIATRIC: Awake, alert, and oriented X 3. Appropriate affect. Intact judgement and insight. - Labs CBC & Chem 7: 04/05/18 07:32 04/05/18 07:32 Labs: Abnormal Lab Results - Last 24 Hours (Table) 04/04/18 04/04/18 04/04/18 Range/Units 11:20 11:46 17:25 MCV (80.0-100.0) fL Lymphocytes # (1.0-4.8) k/uL BUN (7-17) mg/dL Creatinine (0.52-1.04) mg/dL Glucose (74-99) mg/dL POC Glucose (mg/dL) 136 H 216 H (75-99) mg/dL Plasma Lactic Acid David 2.6 H* (0.7-2.0) mmol/L 04/05/18 04/05/18 04/05/18 Range/Units 06:57 07:32 07:32 MCV 105.4 H (80.0-100.0) fL Lymphocytes # 0.7 L (1.0-4.8) k/uL BUN 34 H (7-17) mg/dL Creatinine 1.05 H (0.52-1.04) mg/dL Glucose 180 H (74-99) mg/dL POC Glucose (mg/dL) 175 H (75-99) mg/dL Plasma Lactic Acid David (0.7-2.0) mmol/L Microbiology - Last 24 Hours (Table) 04/02/18 21:17 Blood Culture - Preliminary Blood No Growth after 48 hours 04/04/18 08:00 Gram Stain - Preliminary Sputum Sputum Culture - Preliminary Assessment and Plan Plan: ASSESSMENT: Community acquired pneumonia, CXR reveals right infrahilar pulmonary infiltration, ruled out per pulmonary Acute exacerbation of chronic obstructive pulmonary disease Diabetes Mellitus, type II Steroid-induced hyperglycemia Hypertension Hyperlipidemia GERD History of PE Chronic back pain secondary to DDD History of anxiety and depression Nicotine dependence Obesity: BMI 35.1 Mildly elevated LFTs sepsis, ruled out lactic acidosis, improving PLAN: Pulmonary on consult. Appreciate recommendations and input Continue IV steroids: 60mg q6 hours. Wean per pulmonary Neubulizer treatments QID and PRN Novolog sliding scale per steroid protocol Continue antibiotics: Levaquin Decrease IV fluids to 60cc/hr Complete home oxygen assessment Increase pepcid to 20mg BID per patient request Home meds as appropriate Monitor labs GI prophylaxis: Pepcid 20mg PO BID DVT prophylaxis: Heparin 5000 units subcu every 8 hours Monitor vital signs and address as appropriate Discharge planning: Anticipate patient will return home when stable. Patient would like to be discharged Sunday at the lastest if possible so she can attend her nieces . Further recommendations pending patient's course Nurse practitioner note has been reviewed by physician. Signing provider agrees with the documented findings, assessment, and plan of care.
[2018-04-05 11:33] LABS: Glucose,Whole Blood 321 mg/dL (75-99)
[2018-04-05 13:17] LABS: Glucose,Whole Blood 196 mg/dL (75-99)
--- NOTE | 2018-04-05 14:31 | P.PN ---
Subjective Progress Note Date: 04/05/18 Principal diagnosis: Acute exacerbation of chronic obstructive pulmonary disease. This is a 78-year-old female patient who got hospitalized because of increased cough shortness of breath wheezing over the past few days. She also developed some skeletal chest wall pain due to extensive cough and especially in lower lung man bilaterally more so on the right. Her chest x-ray showing COPD findings without any acute pulmonary infiltrates or pneumonias. No significant leukocytosis. Lactic acid level was 4.6 at time of admission. Cardiac enzymes including troponins are negative, BNP is at 546. The patient is known to me. I 've seen her in the past in my office for mediastinal lymphadenopathy. The patient was being monitored by serial CAT scans. Her last CAT scan of the chest was done on 11/15 2017 and the patient had a stable mediastinal lymph node in addition to a stable left lower lobe pulmonary nodule. This was compared to the earlier CAT scan that was done on 11/15/2017 and 05/17/2017. Based on the stability, no attempts for bronchoscopy was done. Nevertheless, the patient was counseled for smoking cessation she was offered Chantix. She failed to quit smoking and she's been smoking approximately 1 pack of cigarettes a day. She has a nebulizer at home and she has been using DuoNeb nebulized treatments around the clock on as-needed basis. Patient is seen again today 04/04/2018 in follow-up on the regular medical floor. She is currently awake and alert in no acute distress. He's been up ambulating in her room. She is breathing quite a bit easier today as compared to yesterday. Still not quite back to her baseline. She is maintaining good O2 saturations in the 90s on 3 L/m per nasal cannula. She's afebrile. Hemodynamically stable. Blood and sputum cultures reveal no growth to date. White count 8.6. Hemoglobin 12.2. Creatinine 1.00. Lactic acid 2.6. The patient is seen again today 04/05/2018 in follow-up on the regular medical floor. She is currently awake and alert in no acute distress. She still has a loose nonproductive cough. Still dyspneic with minimal exertion. Not much improvement. Sputum culture was inadequate. Blood culture reveals no growth. White count 7.1. Creatinine 1.05. He is continued on DuoNeb inhalations, Symbicort, IV Solu-Medrol, Levaquin. Objective - Vital Signs Vital signs: Vital Signs Temp 97.7 F 04/05/18 05:00 Pulse 92 04/05/18 12:31 Resp 18 04/05/18 08:00 BP 137/72 04/05/18 05:00 Pulse Ox 94 L 04/05/18 13:36 Intake & Output 04/04/18 04/05/18 04/05/18 18:59 06:59 18:59 Intake Total 800 1989 Balance 800 1989 Weight 89.811 kg Intake: Intake, IV Titration 800 800 Amount Sodium Chloride 0.9% 1, 800 800 000 ml @ 60 mls/hr IV . [id number] [facility] Rx#:[id number] Oral 1190 Other: Voiding Method Toilet Toilet # Voids 4 2 2 - Exam General Appearance no diaphoresis, no respiratory distress, speech not interrupted by breaths, no dyspnea, no pallor, not cachectic, well nourished, appears well, obesity HEENT no pursed lip breathing, no jugular venous distention, no mucous membrane cyanosis, no perioral cyanosis, mallampati classification: class 1 Chest no barrel chest, no retractions, no sternocleidomastoid muscle contractions, no supraclavicular retractions, no intercostal retractions, prolonged expiratory wheezing, decreased air movement, no rhonchi, no hyperinflation, (normal) adventitious sounds: rales / crackles: bilaterally: midlung man, decreased air movement Heart no right ventricular heave, no distant heart sounds, no s3 gallop, (normal ) jugular vein: jugular venous distention: by 0cm, (normal) jugular vein GI bowel sounds: hyperactive (borborygmi), bowel sounds: diminished or absent Extremities no cyanosis, no clubbing, no edema Neurologic no decreased mental status, no somnolence, no confusion Assisstive Devices: ambulates with no assitive devices Gait and Mobility: gait WNL, full weight bearing Skin General Appearance normal, (normal) normal except as noted - Labs CBC & Chem 7: 04/05/18 07:32 04/05/18 07:32 Labs: Abnormal Lab Results - Last 24 Hours (Table) 04/04/18 04/05/18 04/05/18 Range/Units 17:25 06:57 07:32 MCV 105.4 H (80.0-100.0) fL Lymphocytes # 0.7 L (1.0-4.8) k/uL BUN (7-17) mg/dL Creatinine (0.52-1.04) mg/dL Glucose (74-99) mg/dL POC Glucose (mg/dL) 216 H 175 H (75-99) mg/dL 04/05/18 04/05/18 04/05/18 Range/Units 07:32 11:32 13:15 MCV (80.0-100.0) fL Lymphocytes # (1.0-4.8) k/uL BUN 34 H (7-17) mg/dL Creatinine 1.05 H (0.52-1.04) mg/dL Glucose 180 H (74-99) mg/dL POC Glucose (mg/dL) 321 H 196 H (75-99) mg/dL Microbiology - Last 24 Hours (Table) 04/02/18 21:17 Blood Culture - Preliminary Blood No Growth after 48 hours 04/04/18 08:00 Gram Stain - Preliminary Sputum Sputum Culture - Preliminary Assessment and Plan Assessment: Assessment 1 acute on chronic hypoxic respiratory failure secondary to acute COPD exacerbation with secondary shortness of breath. 2 skeletal chest wall pain secondary to cough and 3 chronic smoker 4 Mediastinal lymphadenopathy which is being followed up on outpatient basis by serial CAT scan of the chest, no evidence of any malignancy thus far 5 remote history of pulmonary embolism post hysterectomy many years back 6 obesity. 7 skin cancer 8 hyperlipidemia 9 hypertension 10 diverticular disease 11 degenerative arthritis 12 grief due to the recent loss of a niece and the patient once to be released by Sunday to attend the . Plan 1 The patient was seen and evaluated by Dr. Lira. He has been slow to progress. Still not quite back to her baseline. We will go ahead and plan for bronchoscopy with BAL in the a.m. We'll continue with DuoNeb inhalations, IV Solu-Medrol. Add Symbicort. Continue Levaquin. She is again educated regarding the importance of complete smoking cessation. We'll increase her activity as tolerated. We'll continue to follow. I, the cosigning physician, performed a history & physical examination of the patient. Lungs sounds with faint end expiratory wheeze, few scattered rhonchi. Diminished. Maintaining good O2 saturations in the 90s on 3 L/m per nasal cannula. I discussed the assessment and plan of care with my nurse practitioner , Yessi Mayberry. I attest to the above note as dictated by her.
[2018-04-05 17:14] LABS: Glucose,Whole Blood 120 mg/dL (75-99)
[2018-04-05 19:55] LABS: Glucose,Whole Blood 164 mg/dL (75-99)
[2018-04-05] MEDS: PRAVASTATIN SODIUM 80 MG TAB PO SCH (21:31)
[2018-04-05] MEDS: MIRTAZAPINE 15 MG TAB PO SCH (21:31)
[2018-04-06] MEDS: HYDROcodone/APAP 5-325MG 1 EACH TAB PO PRN ×5 (02:34→21:23)
[2018-04-06] MEDS: ALPRAZolam 0.25 MG TAB PO PRN ×3 (03:48→22:18)
[2018-04-06] MEDS: methylPREDNISolone SOD SUCCI 125 MG/2 ML VIAL IV SCH ×3 (05:02→17:20)
[2018-04-06 07:11] LABS: Glucose,Whole Blood 188 mg/dL (75-99)
[2018-04-06] MEDS: DOCUSATE 100 MG CAP PO SCH ×2 (08:03→21:22)
[2018-04-06] MEDS: amLODIPine 5 MG TAB PO SCH (08:04)
[2018-04-06] MEDS: INSULIN ASPART 100 UNIT/ML 1 ML 10 ML VIAL SQ SCH ×7 (08:04→21:31)
[2018-04-06] MEDS: FAMOTIDINE 20 MG TAB PO SCH ×2 (08:04→21:23)
[2018-04-06] MEDS: HYDROCHLOROTHIAZIDE 25 MG TAB PO SCH (08:05)
[2018-04-06] MEDS: POLYETHYLENE GLYCOL 3350 17 GM POWD.PACK PO SCH (08:05)
[2018-04-06] MEDS: HEPARIN SODIUM,PORCINE 5,000 UNIT/ML 1 ML VIAL SQ SCH ×2 (08:05→16:02)
[2018-04-06] MEDS: metFORMIN 500 MG TAB PO SCH ×2 (08:06→21:23)
[2018-04-06] MEDS: SYMBICORT 160-4.5 MCG INHALER INHALATION SCH ×2 (08:32→20:33)
[2018-04-06] MEDS: IPRATROPIUM-ALBUTEROL 3 ML NEB INHALATION SCH ×4 (08:32→20:33)
[2018-04-06 08:40] LABS: Basophils % (A) 0 %; Eosinophils % (A) 1 %; HCT 39.9 % (34.0-46.0); HGB 12.6 gm/dL (11.4-16.0); Lymphocytes # (A) 0.6 k/uL (1.0-4.8); Lymphocytes % (A) 11 %; MCH 33.1 pg (25.0-35.0); MCHC 31.5 g/dL (31.0-37.0); MCV 104.9 fL (80.0-100.0); Macrocytosis Moderate; Mean Platelet Volume 7.2; Monocytes # (A) 0.2 k/uL (0-1.0); Monocytes % (A) 4 %; Neutrophils # (A) 4.9 k/uL (1.3-7.7); Neutrophils % (A) 84 %; Platelet Count 206 k/uL (150-450); RDW 14.1 % (11.5-15.5); WBC 5.9 k/uL (3.8-10.6)
[2018-04-06 08:55] LABS: Albumin 3.7 g/dL (3.5-5.0); Calcium 9.2 mg/dL (8.4-10.2); Total Bilirubin 0.5 mg/dL (0.2-1.3); Total Protein 6.4 g/dL (6.3-8.2)
[2018-04-06] MEDS ORDERED: LIDOCAINE 1% INJ 10MG/ML (20 ML MDV) ONE (10:56)
[2018-04-06] MEDS ORDERED: PROPOFOL 10 MG/ML 20 ML VIAL IV ONE (10:56)
[2018-04-06] MEDS ORDERED: IV FLUID CONTINUATION 700 ML IV ONE (10:56)
[2018-04-06] MEDS: SODIUM CHLORIDE 0.9% 1,000 ML IV SCH ×2 (11:12→16:01)
[2018-04-06] MEDS ORDERED: LIDOCAINE 2% INJ 20 MG/ML INTRATRACH ONE (11:19)
--- NOTE | 2018-04-06 11:27 | P.PN ---
Subjective Progress Note Date: 04/06/18 This is a 78-year-old female patient who got hospitalized because of increased cough shortness of breath wheezing over the past few days. She also developed some skeletal chest wall pain due to extensive cough and especially in lower lung man bilaterally more so on the right. Her chest x-ray showing COPD findings without any acute pulmonary infiltrates or pneumonias. No significant leukocytosis. Lactic acid level was 4.6 at time of admission. Cardiac enzymes including troponins are negative, BNP is at 546. The patient is known to me. I 've seen her in the past in my office for mediastinal lymphadenopathy. The patient was being monitored by serial CAT scans. Her last CAT scan of the chest was done on 11/15 2017 and the patient had a stable mediastinal lymph node in addition to a stable left lower lobe pulmonary nodule. This was compared to the earlier CAT scan that was done on 11/15/2017 and 05/17/2017. Based on the stability, no attempts for bronchoscopy was done. Nevertheless, the patient was counseled for smoking cessation she was offered Chantix. She failed to quit smoking and she's been smoking approximately 1 pack of cigarettes a day. She has a nebulizer at home and she has been using DuoNeb nebulized treatments around the clock on as-needed basis. Patient is seen again today 04/04/2018 in follow-up on the regular medical floor. She is currently awake and alert in no acute distress. He's been up ambulating in her room. She is breathing quite a bit easier today as compared to yesterday. Still not quite back to her baseline. She is maintaining good O2 saturations in the 90s on 3 L/m per nasal cannula. She's afebrile. Hemodynamically stable. Blood and sputum cultures reveal no growth to date. White count 8.6. Hemoglobin 12.2. Creatinine 1.00. Lactic acid 2.6. The patient is seen again today 04/05/2018 in follow-up on the regular medical floor. She is currently awake and alert in no acute distress. She still has a loose nonproductive cough. Still dyspneic with minimal exertion. Not much improvement. Sputum culture was inadequate. Blood culture reveals no growth. White count 7.1. Creatinine 1.05. He is continued on DuoNeb inhalations, Symbicort, IV Solu-Medrol, Levaquin. On 04/06/2008. Seeing this patient for a follow-up. The patient was having a barky congested cough and the plan is to go ahead and do a flexible bronchoscopy today for a therapeutic airway suctioning and the bronchioloalveolar lavage. She is on a combination of DuoNeb, Symbicort and IV Solu-Medrol. She is covered clear with Levaquin. I suspect an underlying component of tracheobronchomalacia. She her white cell count is at 5.9. No significant electrodes abnormalities. She is afebrile.. Objective - Vital Signs Vital signs: Vital Signs Temp 97.8 F 04/06/18 05:00 Pulse 90 04/06/18 08:48 Resp 16 04/06/18 05:00 BP 166/73 04/06/18 05:00 Pulse Ox 95 04/06/18 05:00 Intake & Output 04/05/18 04/06/18 04/06/18 18:59 06:59 18:59 Intake Total 1890 Balance 1890 Weight 89.811 kg 89.811 kg Intake: Intake, IV Titration 720 Amount Sodium Chloride 0.9% 1, 720 000 ml @ 60 mls/hr IV . [id number] [facility] Rx#:[id number] Oral 1170 Other: Voiding Method Toilet Toilet # Voids 2 2 1 - Exam General Appearance no diaphoresis, no respiratory distress, speech not interrupted by breaths, no dyspnea, no pallor, not cachectic, well nourished, appears well, obesity HEENT no pursed lip breathing, no jugular venous distention, no mucous membrane cyanosis, no perioral cyanosis, mallampati classification: class 1 Chest no barrel chest, no retractions, no sternocleidomastoid muscle contractions, no supraclavicular retractions, no intercostal retractions, prolonged expiratory wheezing, decreased air movement, no rhonchi, no hyperinflation, (normal) adventitious sounds: rales / crackles: bilaterally: midlung man, decreased air movement Heart no right ventricular heave, no distant heart sounds, no s3 gallop, (normal ) jugular vein: jugular venous distention: by 0cm, (normal) jugular vein GI bowel sounds: hyperactive (borborygmi), bowel sounds: diminished or absent Extremities no cyanosis, no clubbing, no edema Neurologic no decreased mental status, no somnolence, no confusion Assisstive Devices: ambulates with no assitive devices Gait and Mobility: gait WNL, full weight bearing Skin General Appearance normal, (normal) normal except as noted - Labs CBC & Chem 7: 04/06/18 07:08 04/06/18 07:08 Labs: Abnormal Lab Results - Last 24 Hours (Table) 04/05/18 04/05/18 04/05/18 Range/Units 11:32 13:15 17:13 MCV (80.0-100.0) fL Lymphocytes # (1.0-4.8) k/uL BUN (7-17) mg/dL Glucose (74-99) mg/dL POC Glucose (mg/dL) 321 H 196 H 120 H (75-99) mg/dL AST (14-36) U/L ALT (9-52) U/L 04/05/18 04/06/18 04/06/18 Range/Units 19:54 07:08 07:08 MCV 104.9 H (80.0-100.0) fL Lymphocytes # 0.6 L (1.0-4.8) k/uL BUN 37 H (7-17) mg/dL Glucose 187 H (74-99) mg/dL POC Glucose (mg/dL) 164 H (75-99) mg/dL AST 39 H (14-36) U/L ALT 56 H (9-52) U/L 04/06/18 Range/Units 07:08 MCV (80.0-100.0) fL Lymphocytes # (1.0-4.8) k/uL BUN (7-17) mg/dL Glucose (74-99) mg/dL POC Glucose (mg/dL) 188 H (75-99) mg/dL AST (14-36) U/L ALT (9-52) U/L Microbiology - Last 24 Hours (Table) 04/02/18 21:17 Blood Culture - Preliminary Blood No Growth after 72 hours Assessment and Plan Plan: Assessment 1 acute on chronic hypoxic respiratory failure secondary to acute COPD exacerbation with secondary shortness of breath. 2 skeletal chest wall pain secondary to cough and 3 chronic smoker 4 Mediastinal lymphadenopathy which is being followed up on outpatient basis by serial CAT scan of the chest, no evidence of any malignancy thus far 5 remote history of pulmonary embolism post hysterectomy many years back 6 obesity. 7 skin cancer 8 hyperlipidemia 9 hypertension 10 diverticular disease 11 degenerative arthritis 12 grief due to the recent loss of a niece and the patient once to be released by Sunday to attend the . Plan Continue same treatment. Continue IV Solu-Medrol, DuoNeb, Symbicort and Levaquin. Bronchoscopy today for therapeutic airway suctioning and a bronchial lavage.
--- NOTE | 2018-04-06 11:30 | P.PCN ---
Date of Procedure: 04/06/18 Preoperative Diagnosis: Tracheobronchomalacia, tracheobronchitis, COPD Postoperative Diagnosis: Tracheobronchomalacia, tracheobronchitis, COPD Procedure(s) Performed: Flexible bronchoscopy, BAL of the lingula Anesthesia: MAC Surgeon: Ayleen Lira Estimated Blood Loss (ml): 0 Pathology: none sent Condition: stable Disposition: floor Operative Findings: This procedure was done under conscious sedation with anesthetic agents being administered by anesthesia the bedside. After achieving adequate sedation the flexible bronchoscope was inserted through the right nostril. Examination of the posterior oropharynx, larynx, epiglottis, vallecula, arytenoids of vocal cords was done. Upper airway structures were all within normal limits. A total of 2 mL of 1% lidocaine was applied to the vocal cords and following that the bronchoscope was advanced into the upper trachea. There was a component of severe tracheal bronchomalacia with dynamic obstruction of the trachea and bilateral mainstem bronchi with exhalation and cough and mechanism's. The patient also had looseness for secretions retained throughout the patient's airways. Therapeutic airway suctioning was done. The underlying bronchial mucosa was inflamed and erythematous and red. The visualized airways included the trachea, bilateral mainstem bronchi, right upper lobe bronchus, right middle lobe bronchus, right lower lobe bronchus, bronchus intermedius, left upper lobe bronchus, left lower lobe bronchus and the various segments and subsegments. All of these airways were involved with malacia yet there were quite patent. At the end of the procedure. A bronchioloalveolar lavage of the lingular segment was done. A total of 80 mL of fluid was infused and 25 mL of bloody aspirate was obtained. Therapeutic airway suctioning was done. The bronchoscope was removed and the patient was transferred to recovery in stable condition. She'll be chest and back to her room on the medical floor. No complications. The BAL will be sent for microbial analysis.
[2018-04-06] MEDS ORDERED: IV FLUID CONTINUATION 500 ML IV ONE (11:31)
[2018-04-06 12:31] LABS: Glucose,Whole Blood 196 mg/dL (75-99)
--- NOTE | 2018-04-06 12:35 | P.PN ---
Subjective Progress Note Date: 04/06/18 Principal diagnosis: Community-acquired pneumonia Mrs. Huddleston is a 78-year-old female with a past medical history of COPD, diabetes , GERD, hyperlipidemia, hypertension, chronic low back pain secondary to DJD, and pulmonary embolus admitted to the hospital with a chief complaint of shortness of breath and cough. Patient was prescribed antibiotics and a steroid taper that she did not respond to and so admitted to the hospital for further management. Patient has been admitted to the hospital under Dr. Jose David dickey and pulmonary has been following the patient closely. On 04/06/2018 Patient was seen and examined at the bedside. Patient had a bronchoscopy done by Dr. Lira this morning. Patient still continues to report nonproductive cough. She is on 3 L saturating at 92%. Patient's daughter at the bedside and request that her mother be discharged tomorrow as they have attend a on Sunday. On review of systems: Patient denies having any fevers chills or rigors. Difficulty in breathing at baseline. Cough still present but is nonproductive. Patient denies having any abdominal pain nausea vomiting or diarrhea. No dysuria or hematuria. Objective - Vital Signs Vital signs: Vital Signs Temp 97.8 F 04/06/18 05:00 Pulse 96 04/06/18 12:21 Resp 26 H 04/06/18 11:51 BP 151/76 04/06/18 11:51 Pulse Ox 94 L 04/06/18 11:51 Intake & Output 04/05/18 04/06/18 04/06/18 18:59 06:59 18:59 Intake Total 1890 700 Balance 1890 700 Weight 89.811 kg 89.811 kg Intake: Intake, IV Titration 720 700 Amount Levofloxacin 750Mg-D5w 100 Pmx 750 mg In Dextrose/ Water 1 150ml.bag @ 100 mls/hr IVPB Q48H JACKIE Rx#: [id number] Sodium Chloride 0.9% 1, 720 600 000 ml @ 60 mls/hr IV . [id number] JACKIE Rx#:[id number] Oral 1170 0 Other: Voiding Method Toilet Toilet # Voids 2 2 2 - Exam GENERAL: This is a 78-year-old female in no apparent distress at the time of examination. Pleasant and cooperative. HEENT: Head is atraumatic, normocephalic. Pupils are equal, round, and reactive to light. Sclerae anicteric. Conjunctivae are clear. Mucus membranes of the mouth are moist. Neck is supple. RESPIRATORY: Expiratory wheezing noted throughout lung man, improved from yesterday. Frequent nonproductive cough noted. No use of accessory muscles. Patient maintaining oxygen saturation greater than 92%. No chest wall tenderness is noted on palpation or with deep breathing. CARDIOVASCULAR: Regular rate and rhythm. S1 and S2 noted. No systolic or diastolic murmur auscultated. No JVD noted. No S3 or S4 noted. GASTROINTESTINAL: Abdomen soft and round. Normal active bowel sounds auscultated x 4 quadrants. No pain or tenderness noted upon palpation. INTEGUMENTARY: No cyanosis. No jaundice. No rashes noted. No cellulitis noted. EXTREMITIES: 2+ peripheral pulses. 1+ bilateral LE edema. No calf tenderness noted. NEUROLOGIC: Cranial nerves II-XII intact. PSYCHIATRIC: Awake, alert, and oriented X 3. Appropriate affect. Intact judgement and insight. - Labs CBC & Chem 7: 04/06/18 07:08 04/06/18 07:08 Labs: Abnormal Lab Results - Last 24 Hours (Table) 04/05/18 04/05/18 04/05/18 Range/Units 13:15 17:13 19:54 MCV (80.0-100.0) fL Lymphocytes # (1.0-4.8) k/uL BUN (7-17) mg/dL Glucose (74-99) mg/dL POC Glucose (mg/dL) 196 H 120 H 164 H (75-99) mg/dL AST (14-36) U/L ALT (9-52) U/L 04/06/18 04/06/18 04/06/18 Range/Units 07:08 07:08 07:08 MCV 104.9 H (80.0-100.0) fL Lymphocytes # 0.6 L (1.0-4.8) k/uL BUN 37 H (7-17) mg/dL Glucose 187 H (74-99) mg/dL POC Glucose (mg/dL) 188 H (75-99) mg/dL AST 39 H (14-36) U/L ALT 56 H (9-52) U/L Microbiology - Last 24 Hours (Table) 04/02/18 21:17 Blood Culture - Preliminary Blood No Growth after 72 hours Assessment and Plan Assessment: ASSESSMENT Community acquired pneumonia, CXR reveals right infrahilar pulmonary infiltration, ruled out per pulmonary Acute exacerbation of chronic obstructive pulmonary disease Diabetes Mellitus, type II Steroid-induced hyperglycemia Hypertension Hyperlipidemia GERD History of PE Chronic back pain secondary to DDD History of anxiety and depression Nicotine dependence Obesity: BMI 35.1 Mildly elevated LFTs PLAN: To continue on Levaquin, IV steroids and breathing treatments. GI and DVT prophylaxis. Awaiting BAL cultures. Patient requests that her Xanax dose to be increased as she feels still feeling anxious with the current doses. Discharge planning: Anticipate patient will return home when stable. Patient would like to be discharged Sunday at the lastest if possible so she can attend her nieces . Further recommendations pending patient's course
[2018-04-06 15:25] LABS: Color,BF Red
[2018-04-06 15:26] LABS: Appearance,BF Bloody
[2018-04-06 15:27] LABS: Nucleated Cells, Body Fluid 150 /uL; RBC, Body Fluid 8950 /uL
[2018-04-06 15:31] LABS: Mononuclear WBC,Body Fluid 39 %; Polynuclear WBC,Body Fluid 59 %; Total Cells Counted,Body Fluid 100
[2018-04-06] MEDS ORDERED: LOPERAMIDE 2 MG CAP PO PRN (15:56)
[2018-04-06] MEDS ORDERED: PROCHLORPERAZINE 10 MG TAB PO PRN (15:57)
[2018-04-06 17:23] LABS: Glucose,Whole Blood 147 mg/dL (75-99)
[2018-04-06 20:01] LABS: Glucose,Whole Blood 271 mg/dL (75-99)
[2018-04-06] MEDS: MIRTAZAPINE 15 MG TAB PO SCH (21:23)
[2018-04-06] MEDS: PRAVASTATIN SODIUM 80 MG TAB PO SCH (21:23)
[2018-04-06 22:24] VITALS: RESP 16
[2018-04-07] MEDS: HEPARIN SODIUM,PORCINE 5,000 UNIT/ML 1 ML VIAL SQ SCH ×2 (00:07→06:49)
[2018-04-07] MEDS: TEMAZEPAM 30 MG CAP PO SCH (00:07)
[2018-04-07] MEDS: methylPREDNISolone SOD SUCCI 125 MG/2 ML VIAL IV SCH ×2 (00:07→05:44)
[2018-04-07 02:08] LABS: Glucose,Whole Blood 154 mg/dL (75-99)
[2018-04-07] MEDS: HYDROcodone/APAP 5-325MG 1 EACH TAB PO PRN ×3 (03:55→12:08)
[2018-04-07 05:59] VITALS: BP 148/67; TEMP 97
[2018-04-07] MEDS: ALPRAZolam 0.25 MG TAB PO PRN (06:49)
[2018-04-07] MEDS: FAMOTIDINE 20 MG TAB PO SCH (06:50)
[2018-04-07] MEDS: HYDROCHLOROTHIAZIDE 25 MG TAB PO SCH (06:50)
[2018-04-07] MEDS: metFORMIN 500 MG TAB PO SCH (06:50)
[2018-04-07] MEDS: POLYETHYLENE GLYCOL 3350 17 GM POWD.PACK PO SCH (06:51)
[2018-04-07] MEDS: amLODIPine 5 MG TAB PO SCH (06:51)
[2018-04-07] MEDS: DOCUSATE 100 MG CAP PO SCH (06:51)
[2018-04-07] MEDS: LEVOFLOXACIN 750MG-D5W PMX 750 MG in DEXTROSE/WATER 1 150ML.BAG IVPB SCH (06:51)
[2018-04-07] MEDS: SYMBICORT 160-4.5 MCG INHALER INHALATION SCH (07:13)
[2018-04-07] MEDS: IPRATROPIUM-ALBUTEROL 3 ML NEB INHALATION SCH ×2 (07:14→11:19)
[2018-04-07 07:30] LABS: Glucose,Whole Blood 208 mg/dL (75-99)
[2018-04-07] MEDS: INSULIN ASPART 100 UNIT/ML 1 ML 10 ML VIAL SQ SCH ×4 (07:58→12:45)
[2018-04-07 08:39] LABS: Basophils % (A) 0 %; Eosinophils % (A) 0 %; HCT 41.8 % (34.0-46.0); HGB 13.3 gm/dL (11.4-16.0); Lymphocytes # (A) 0.6 k/uL (1.0-4.8); Lymphocytes % (A) 11 %; MCH 33.1 pg (25.0-35.0); MCHC 31.7 g/dL (31.0-37.0); MCV 104.3 fL (80.0-100.0); Macrocytosis Slight; Mean Platelet Volume 6.9; Monocytes # (A) 0.2 k/uL (0-1.0); Monocytes % (A) 3 %; Neutrophils # (A) 4.9 k/uL (1.3-7.7); Neutrophils % (A) 86 %; Platelet Count 204 k/uL (150-450); RBC 4.01 m/uL (3.80-5.40); RDW 13.7 % (11.5-15.5); WBC 5.7 k/uL (3.8-10.6)
[2018-04-07 11:32] VITALS: PULSE 92
--- NOTE | 2018-04-07 12:03 | P.PN ---
Subjective Progress Note Date: 04/07/18 This is a 78-year-old female patient who got hospitalized because of increased cough shortness of breath wheezing over the past few days. She also developed some skeletal chest wall pain due to extensive cough and especially in lower lung man bilaterally more so on the right. Her chest x-ray showing COPD findings without any acute pulmonary infiltrates or pneumonias. No significant leukocytosis. Lactic acid level was 4.6 at time of admission. Cardiac enzymes including troponins are negative, BNP is at 546. The patient is known to me. I 've seen her in the past in my office for mediastinal lymphadenopathy. The patient was being monitored by serial CAT scans. Her last CAT scan of the chest was done on 11/15 2017 and the patient had a stable mediastinal lymph node in addition to a stable left lower lobe pulmonary nodule. This was compared to the earlier CAT scan that was done on 11/15/2017 and 05/17/2017. Based on the stability, no attempts for bronchoscopy was done. Nevertheless, the patient was counseled for smoking cessation she was offered Chantix. She failed to quit smoking and she's been smoking approximately 1 pack of cigarettes a day. She has a nebulizer at home and she has been using DuoNeb nebulized treatments around the clock on as-needed basis. Patient is seen again today 04/04/2018 in follow-up on the regular medical floor. She is currently awake and alert in no acute distress. He's been up ambulating in her room. She is breathing quite a bit easier today as compared to yesterday. Still not quite back to her baseline. She is maintaining good O2 saturations in the 90s on 3 L/m per nasal cannula. She's afebrile. Hemodynamically stable. Blood and sputum cultures reveal no growth to date. White count 8.6. Hemoglobin 12.2. Creatinine 1.00. Lactic acid 2.6. The patient is seen again today 04/05/2018 in follow-up on the regular medical floor. She is currently awake and alert in no acute distress. She still has a loose nonproductive cough. Still dyspneic with minimal exertion. Not much improvement. Sputum culture was inadequate. Blood culture reveals no growth. White count 7.1. Creatinine 1.05. He is continued on DuoNeb inhalations, Symbicort, IV Solu-Medrol, Levaquin. On 04/06/2008. Seeing this patient for a follow-up. The patient was having a barky congested cough and the plan is to go ahead and do a flexible bronchoscopy today for a therapeutic airway suctioning and the bronchioloalveolar lavage. She is on a combination of DuoNeb, Symbicort and IV Solu-Medrol. She is covered clear with Levaquin. I suspect an underlying component of tracheobronchomalacia. She her white cell count is at 5.9. No significant electrodes abnormalities. She is afebrile.. On 04/07/2018, the patient is feeling much better. Less focused spastic and wheezy. Bronchoscopy and therapeutic it was suctioning was done. Results of the BAL are still pending. Extensive amount of tracheal bronchomalacia was noted. Patient remains on Symbicort and DuoNeb and IV Solu-Medrol. I think it' s reasonable to consider discharge home with a home nebulizer and a prednisone burst taper. Objective - Vital Signs Vital signs: Vital Signs Temp 97.0 F L 04/07/18 05:00 Pulse 92 04/07/18 11:32 Resp 16 04/07/18 05:00 BP 148/67 04/07/18 05:00 Pulse Ox 94 L 04/07/18 09:38 Intake & Output 04/06/18 04/07/18 04/07/18 18:59 06:59 18:59 Intake Total 700 1989 Balance 700 1989 Weight 89.811 kg Intake: Intake, IV Titration 700 720 Amount Levofloxacin 750Mg-D5w 100 Pmx 750 mg In Dextrose/ Water 1 150ml.bag @ 100 mls/hr IVPB Q48H JACKIE Rx#: [id number] Sodium Chloride 0.9% 1, 600 720 000 ml @ 60 mls/hr IV . [id number] JACKIE Rx#:[id number] Oral 0 1270 Other: Voiding Method Toilet Toilet # Voids 2 3 - Exam General Appearance no diaphoresis, no respiratory distress, speech not interrupted by breaths, no dyspnea, no pallor, not cachectic, well nourished, appears well, obesity HEENT no pursed lip breathing, no jugular venous distention, no mucous membrane cyanosis, no perioral cyanosis, mallampati classification: class 1 Chest no barrel chest, no retractions, no sternocleidomastoid muscle contractions, no supraclavicular retractions, no intercostal retractions, prolonged expiratory wheezing, decreased air movement, no rhonchi, no hyperinflation, (normal) adventitious sounds: rales / crackles: bilaterally: midlung man, decreased air movement Heart no right ventricular heave, no distant heart sounds, no s3 gallop, (normal ) jugular vein: jugular venous distention: by 0cm, (normal) jugular vein GI bowel sounds: hyperactive (borborygmi), bowel sounds: diminished or absent Extremities no cyanosis, no clubbing, no edema Neurologic no decreased mental status, no somnolence, no confusion Assisstive Devices: ambulates with no assitive devices Gait and Mobility: gait WNL, full weight bearing Skin General Appearance normal, (normal) normal except as noted - Labs CBC & Chem 7: 04/07/18 08:13 04/07/18 08:13 Labs: Abnormal Lab Results - Last 24 Hours (Table) 04/06/18 04/06/18 04/06/18 Range/Units 12:29 17:21 20:00 MCV (80.0-100.0) fL Lymphocytes # (1.0-4.8) k/uL BUN (7-17) mg/dL Creatinine (0.52-1.04) mg/dL Glucose (74-99) mg/dL POC Glucose (mg/dL) 196 H 147 H 271 H (75-99) mg/dL 04/07/18 04/07/18 04/07/18 Range/Units 02:05 07:28 08:13 MCV 104.3 H (80.0-100.0) fL Lymphocytes # 0.6 L (1.0-4.8) k/uL BUN (7-17) mg/dL Creatinine (0.52-1.04) mg/dL Glucose (74-99) mg/dL POC Glucose (mg/dL) 154 H 208 H (75-99) mg/dL 04/07/18 Range/Units 08:13 MCV (80.0-100.0) fL Lymphocytes # (1.0-4.8) k/uL BUN 36 H (7-17) mg/dL Creatinine 1.07 H (0.52-1.04) mg/dL Glucose 258 H (74-99) mg/dL POC Glucose (mg/dL) (75-99) mg/dL Microbiology - Last 24 Hours (Table) 04/06/18 11:25 Gram Stain - Preliminary Bronchial Washings - Random Bronchial Washings Culture - Preliminary 04/02/18 21:17 Blood Culture - Preliminary Blood No Growth after 96 hours 04/06/18 11:25 Fungal Culture - Preliminary Bronchial Washings - Random Assessment and Plan Plan: Assessment 1 acute on chronic hypoxic respiratory failure secondary to acute COPD exacerbation with secondary shortness of breath. The patient is improved significantly. The patient underwent a bronchoscopy and the bronchioloalveolar lavage and the results are still pending. Meanwhile there has been significant improvement in her condition and the patient is less short of breath and she is good for discharge in regards to her acute COPD exacerbation. She was found to have significant check of bronchomalacia during the bronchoscopy 2 skeletal chest wall pain secondary to cough, recovered 3 chronic smoker 4 Mediastinal lymphadenopathy which is being followed up on outpatient basis by serial CAT scan of the chest, no evidence of any malignancy thus far 5 remote history of pulmonary embolism post hysterectomy many years back 6 obesity. 7 skin cancer 8 hyperlipidemia 9 hypertension 10 diverticular disease 11 degenerative arthritis 12 grief due to the recent loss of a niece and the patient once to be released by Sunday to attend the . Plan Arrange a home nebulizer. Continue DuoNeb nebulized treatments at home. We will monitor the results of the BAL and will contact the patient outpatient basis if there is any significant growth. Prednisone burst taper. Arrange for a home walker. Oral Levaquin. Discharge home today.
[2018-04-07 12:06] LABS: Glucose,Whole Blood 147 mg/dL (75-99)
--- NOTE | 2018-04-07 12:37 | P.DS ---
Providers Date of admission: 04/02/18 23:14 Expected date of discharge: 04/07/18 Attending physician: Enrique Main Consults: 04/02/18 23:14 Consult Physician Routine Consulting Provider: Ayleen Lira Consult Reason/Comments: COPD, CAP Do you want consulting provider notified?: Yes Primary care physician: Enrique Main [facility] Course: Ms. Huddleston is a 78-year-old female with a past medical history of COPD, diabetes , GERD, hypertension, hyperlipidemia,, chronic low back pain secondary to DJD and pulmonary embolus admitted to the hospital with a chief complaint of shortness of breath and cough. Patient's chest x-ray was showing COPD findings with no acute pulmonary infiltrates or pneumonia. Cardiac enzymes were negative and BNP was at 546. She is a patient of Dr. Lira. Patient had a CAT scan of the chest done in November 2017 showing stable mediastinal lymph node and a stable left pulmonary nodule. The patient was started on steroids and breathing treatments but did not show much improvement and the sputum culture was inadequate and blood cultures showed no growth. So patient was taken to bronchoscopy on 04/06/2018 for therapeutic suction and bronchioloalveolar lower arch. After the bronchoscopy the patient's respiratory status improved significantly. She was evaluated by Dr. Lira today was okay for discharge. So the patient is being sent home on a tapering dose of prednisone along with Levaquin. Patient has to attend her nieces tomorrow. GENERAL: This is a 78-year-old female in no apparent distress at the time of examination. Pleasant and cooperative. HEENT: Head is atraumatic, normocephalic. Pupils are equal, round, and reactive to light. Sclerae anicteric. Conjunctivae are clear. Mucus membranes of the mouth are moist. Neck is supple. RESPIRATORY: prolonged expiratory wheezing, decreased air movement, no rhonchi, no hyperinflation, (normal) adventitious sounds: rales / crackles: bilaterally: midlung man, decreased air movement CARDIOVASCULAR: Regular rate and rhythm. S1 and S2 noted. No systolic or diastolic murmur auscultated. No JVD noted. No S3 or S4 noted. GASTROINTESTINAL: Abdomen soft and round. Normal active bowel sounds auscultated x 4 quadrants. No pain or tenderness noted upon palpation. INTEGUMENTARY: No cyanosis. No jaundice. No rashes noted. No cellulitis noted. EXTREMITIES: 2+ peripheral pulses. 1+ bilateral LE edema. No calf tenderness noted. NEUROLOGIC: Cranial nerves II-XII intact. PSYCHIATRIC: Awake, alert, and oriented X 3. Appropriate affect. Intact judgement and insight. DISCHARGE DIAGNOSIS Acute on chronic hypoxic respiratory failure due to COPD exacerbation Musculoskeletal chest wall pain due to cough Diabetes Mellitus, type II Steroid-induced hyperglycemia Hypertension Hyperlipidemia GERD History of PE Chronic back pain secondary to DDD History of anxiety and depression Nicotine dependence Obesity: BMI 35.1 Mildly elevated LFTs Patient is being discharged home in a fair condition night she has to attend her nieces . Advised to follow up with her PCP and pulmonary physicians in 3-5 days. More than 30 minutes spent towards the discharge of the patient. Patient Condition at Discharge: Stable Plan - Discharge Summary Discharge Rx Participant: Yes New Discharge Prescriptions: New Budesonide-Formot 160-4.5 Mcg [Symbicort 160-4.5 Mcg Inhaler] 2 puff INHALATION RT-BID #1 puff predniSONE 20 mg PO BID 3 Days #6 tab predniSONE 30 mg PO DAILY #3 tab predniSONE 20 mg PO DAILY #3 tab predniSONE 10 mg PO DAILY #3 tab HYDROcodone/APAP 5-325MG [[place] 5-325] 1 tab PO Q6HR PRN 3 Days #12 tab PRN Reason: Muscle Pain Levofloxacin [Levaquin] 500 mg PO DAILY 3 Days #4 tab metFORMIN HCL [Glucophage] 500 mg PO BID #30 tab Continue amLODIPine [Norvasc] 5 mg PO DAILY ALPRAZolam [Xanax] 0.25 mg PO BID PRN PRN Reason: Anxiety Pravastatin Sodium [Pravachol] 80 mg PO HS Famotidine [Pepcid] 20 mg PO BID metFORMIN HCL [Glucophage] 500 mg PO BID Mirtazapine [Remeron] 15 mg PO HS Hydrochlorothiazide [Hydrodiuril] 25 mg PO DAILY Discontinued Ciprofloxacin HCl [Cipro] 500 mg PO BID methylPREDNISolone [Medrol Dose Pack] See Taper PO DIRECTED Discharge Medication List ALPRAZolam [Xanax] 0.25 mg PO BID PRN 05/17/16 [History] Pravastatin Sodium [Pravachol] 80 mg PO HS 05/17/16 [History] amLODIPine [Norvasc] 5 mg PO DAILY 10/05/16 [History] Famotidine [Pepcid] 20 mg PO BID 02/14/17 [History] Hydrochlorothiazide [Hydrodiuril] 25 mg PO DAILY 04/02/18 [History] Mirtazapine [Remeron] 15 mg PO HS 04/02/18 [History] metFORMIN HCL [Glucophage] 500 mg PO BID 04/02/18 [History] Budesonide-Formot 160-4.5 Mcg [Symbicort 160-4.5 Mcg Inhaler] 2 puff INHALATION RT-BID #1 puff 04/07/18 [Rx] HYDROcodone/APAP 5-325MG [[place] 5-325] 1 tab PO Q6HR PRN 3 Days #12 tab [Rx] Levofloxacin [Levaquin] 500 mg PO DAILY 3 Days #4 tab 04/07/18 [Rx] metFORMIN HCL [Glucophage] 500 mg PO BID #30 tab 04/07/18 [Rx] predniSONE 10 mg PO DAILY #3 tab 04/07/18 [Rx] predniSONE 20 mg PO BID 3 Days #6 tab 04/07/18 [Rx] predniSONE 20 mg PO DAILY #3 tab 04/07/18 [Rx] predniSONE 30 mg PO DAILY #3 tab 04/07/18 [Rx] Follow up Appointment(s)/Referral(s): Enrique Main DO [Primary Care Provider] - 1 Week (Patient to call Dr. Main's office Sunday to schedule follow up appointment. The office is closed at time of discharge. ) Ayleen Lira MD [STAFF PHYSICIAN] - 1 Week (Patient to call Dr. Lira's office Sunday to schedule follow up appointment. The office is closed at time of discharge.) Patient Instructions/Handouts: Hydrocodone/Acetaminophen (By mouth), Prednisone (By mouth), Budesonide/Formoterol (By breathing), COPD (Chronic Obstructive Pulmonary Disease) (DC), Community Acquired Pneumonia (DC), Flexible Bronchoscopy (GEN) Activity/Diet/Wound Care/Special Instructions: Nebulizer and walker ordered through [facility]: #[phone] Discharge Disposition: HOME SELF-CARE
== END 2018-04-07 13:05 | disposition home or self-care (01) | DRG 166 ==
LOC: EC 21:04 → 6SEL 23:14 → 5MS5E 04-03 11:07 → 4MS4W 04-03 12:10 → 5MS5E 04-03 12:18
PROVIDERS: ADMIT Family Medicine; ATTEND Family Medicine
PROC: 0BJ08ZZ Inspection of Tracheobronchial Tree, Via Natural or Artificial Opening Endoscopic (ICD-10-PCS; 2018-04-06)
PROC: 0B9H8ZX Drainage of Lung Lingula, Via Natural or Artificial Opening Endoscopic, Diagnostic (ICD-10-PCS; principal; 2018-04-06 11:00)
DX: J44.1 Chronic obstructive pulmonary disease with (acute) exacerbation (principal); J96.21 Acute and chronic respiratory failure with hypoxia; E87.2 Acidosis; N11.9 Chronic tubulo-interstitial nephritis, unspecified; G89.29 Other chronic pain; Z85.828 Personal history of other malignant neoplasm of skin; E11.65 Type 2 diabetes mellitus with hyperglycemia; T38.0X5A Adverse effect of glucocorticoids and synthetic analogues, initial encounter; E66.9 Obesity, unspecified; Z68.35 Body mass index [BMI] 35.0-35.9, adult; E78.5 Hyperlipidemia, unspecified; Z71.6 Tobacco abuse counseling; F17.210 Nicotine dependence, cigarettes, uncomplicated; I10 Essential (primary) hypertension; J98.09 Other diseases of bronchus, not elsewhere classified; K21.9 Gastro-esophageal reflux disease without esophagitis; K57.90 Diverticulosis of intestine, part unspecified, without perforation or abscess without bleeding; M47.9 Spondylosis, unspecified; Z82.49 Family history of ischemic heart disease and other diseases of the circulatory system; Z82.5 Family history of asthma and other chronic lower respiratory diseases; Z86.711 Personal history of pulmonary embolism; Z90.710 Acquired absence of both cervix and uterus; Z98.42 Cataract extraction status, left eye; Z98.41 Cataract extraction status, right eye; Z96.1 Presence of intraocular lens; R94.5 Abnormal results of liver function studies; Z88.5 Allergy status to narcotic agent; Z88.0 Allergy status to penicillin; Z88.6 Allergy status to analgesic agent; Z91.040 Latex allergy status; R91.1 Solitary pulmonary nodule; Z63.4 Disappearance and death of family member; N39.3 Stress incontinence (female) (male); Z79.2 Long term (current) use of antibiotics; Z79.84 Long term (current) use of oral hypoglycemic drugs; Z79.52 Long term (current) use of systemic steroids; Z79.899 Other long term (current) drug therapy; R59.0 Localized enlarged lymph nodes
CPT/HCPCS: 31624; 36415; 71046; 80048; 80053; 82550; 82553; 83036; 83605; 83735; 83880; 84484; 85025; 85610; 85730; 87040; 87070; 87102; 87205; 87252; 87496; 87498; 87502; 87529; 87634; 87798; 88108; 88305; 89050; 93005; 94640; 94760; 96365; 96375; 96376; 99285

== ENCOUNTER → 2018-05-16 | Outpatient (CLI) | payer MEDICARE ==
--- NOTE | 2018-05-16 14:07 | CT ---
EXAMINATION TYPE: CT chest w con DATE OF EXAM: 05/16/2018 COMPARISON: Prior CT chest 12/19/2017 HISTORY: Squamous cell carcinoma of skin. CT DLP: 506.6 mGycm Automated exposure control for dose reduction was used. CONTRAST: CT scan of the chest is performed with IV Contrast, patient injected with 80 mL of Isovue M300. FINDINGS: LUNGS: Stable in appearance, there are emphysematous changes, interstitial changes similar to prior e xam, no evident lung mass. MEDIASTINUM: Prevascular nodes stable, precarinal node also unchanged with a fatty hilus and only sli ght enlargement. There are coronary artery calcifications present. AORTA: Atheromatous changes are present. Circumaortic left renal vein noted. OTHER: No upper abdomen shows a stable appearance. Lobular contour to the kidneys again noted. Patie nt is post cholecystectomy. No evident liver mass. Low dense right adrenal lesion is stable and may r epresent adenoma. IMPRESSION: Stable exam, no significant interval change
== END | disposition home or self-care (01) ==
LOC: RADCTMAIN 12:21
PROVIDERS: ATTEND Internal Medicine Hematology & Oncology
DX: C44.722 Squamous cell carcinoma of skin of right lower limb, including hip (principal); R59.1 Generalized enlarged lymph nodes; N17.9 Acute kidney failure, unspecified; Z91.040 Latex allergy status
CPT/HCPCS: 82565; 84520; 71260; 36415; Q9967

== ENCOUNTER → 2018-07-18 | Outpatient (CLI) | payer MEDICARE ==
[2018-07-18 12:28] LABS: Appearance,Urine Clear (Clear); Bilirubin,Urine Negative (Negative); Blood,Urine Negative (Negative); Color,Urine Light Yellow; Glucose,Urine (UA) Negative (Negative); Ketones,Urine Negative (Negative); Leukocyte Esterase,Urine Negative (Negative); Nitrite,Urine Negative (Negative); PH, Urine 5.5 (5.0-8.0); Protein,Urine Trace (Negative); Urobilinogen,Urine <2.0 mg/dL (<2.0)
[2018-07-18 20:11] LABS: Anion Gap 11.3 mmol/L (4.00-12.00); Calcium 9.4 mg/dL (8.7-10.3); Carbon Dioxide 23.7 mmol/L (21.6-31.8)
== END | disposition home or self-care (01) ==
LOC: LABWHC1 11:35
PROVIDERS: ATTEND Internal Medicine Critical Care Medicine
DX: Z01.812 Encounter for preprocedural laboratory examination (principal); N39.0 Urinary tract infection, site not specified
CPT/HCPCS: 36415; 80048; 81003; 87086

== ENCOUNTER → 2018-07-18 | Outpatient (CLI) | payer MEDICARE | END | disposition home or self-care (01) | LOC: LABPAT 11:31 | PROVIDERS: ATTEND Orthopaedic Surgery | DX: Z01.812 Encounter for preprocedural laboratory examination (principal); M16.12 Unilateral primary osteoarthritis, left hip | CPT/HCPCS: 87070 ==

== ENCOUNTER 2018-07-29 09:50 | Inpatient (IN) | payer MEDICARE ==
[2018-07-24 16:30] VITALS: BMI 32.8
--- NOTE | 2018-07-28 17:50 | HP ---
HISTORY AND PHYSICAL Surgery is scheduled for 07/29/2018. Paige Huddleston is a 78-year-old patient seen with progressive left hip pain. Treatment options were discussed. She elected to proceed with left total hip arthroplasty. Consent was obtained. Clearance was provided by Dr. Enrique Main. PAST MEDICAL HISTORY: Hypertension, hyperlipidemia, non-insulin dependent diabetes. PAST SURGICAL HISTORY: Lumbar spine surgery, breast reduction surgery. MEDICATIONS: Alprazolam, amlodipine, hydrochlorothiazide, metformin, pravastatin, Symbicort. ALLERGIES: None reported. SOCIAL HISTORY: Patient smokes 1 pack cigarettes daily. PHYSICAL EXAMINATION: Evaluation of the left hip, there is limited range of motion with severe pain. Positive impingement sign. Straight leg raise negative. Distal neurovascular exam is intact. RADIOGRAPHS: Left hip radiographs revealed moderately severe osteoarthritis of the left hip. IMPRESSION: 1. Left hip osteoarthritis. 2. Hypertension. 3. Hyperlipidemia. 4. Non-insulin dependent diabetes. 5. Tobacco use. PLAN: Direct anterior left total hip arthroplasty. MMODL / IJN: [id number] /
[~2018-07-29 09:50] MED LIST: ACETAMINOPHEN TAB 500 MG TAB PO ONE; DEXAMETHASONE SOD PHOSPHATE 10 MG/ML 1 ML VIAL IV ONE; MELOXICAM 7.5 MG TAB PO ONE; MIDAZOLAM (PF) 2 MG/2 ML VIAL IV PRN; ONDANSETRON 4 MG/2 ML VIAL IVP ONE; TRANEXAMIC ACID 1,000 MG in SODIUM CHLORIDE 0.9% 50 ML IVPB ONE; ceFAZolin IN SWFI 2 GM/20 ML SYRINGE IVP ONE
[2018-07-29] MEDS: LACTATED RINGERS 1,000 ML IV SCH ×2 (10:42→11:54)
[2018-07-29] MEDS ORDERED: LIDOCAINE 1% 20 ML VIAL (10MG/ML) FOR IV START INTRADERMA ONE (10:43)
[2018-07-29 10:55] LABS: Glucose,Whole Blood 138 mg/dL (75-99)
[2018-07-29] MEDS ORDERED: ROPIVACAINE 246.25 MG, EPINEPHrine 0.5 MG, KETOROLAC 30 MG, cloNIDine HCL/PF 80 MCG, WA... MISCELLANE ONE ×5 (11:41)
[2018-07-29] MEDS ORDERED: TRANEXAMIC ACID 1,000 MG/10 ML VIAL ONE (11:52)
[2018-07-29] MEDS ORDERED: SODIUM CHLORIDE 0.9% 100 ML BAG ONE (11:52)
[2018-07-29] MEDS ORDERED: MIDAZOLAM 2 MG/2 ML VIAL ONE (11:52)
[2018-07-29] MEDS ORDERED: PROPOFOL 10 MG/ML 20 ML VIAL IV ONE (11:52)
[2018-07-29] MEDS ORDERED: PHENYLEPHRINE-0.9% NACL SYG 1 MG/10 ML SYRINGE ONE (11:52)
[2018-07-29] MEDS ORDERED: ePHEDrine SULFATE/0.9% NACL/PF 50 MG/5 ML SYRINGE IV ONE (11:52)
[2018-07-29] MEDS ORDERED: fentaNYL (PF) 50 MCG/ML 2 ML AMP ONE (11:52)
[2018-07-29] MEDS ORDERED: LACTATED RINGERS 1,000 ML IV ONE (12:35)
[2018-07-29] MEDS ORDERED: ceFAZolin 3,000 MG in SODIUM CHLORIDE 0.9% IRRIGATIO 3,000 ML IRRIGATION ONE (12:35)
--- NOTE | 2018-07-29 14:06 | XR ---
EXAMINATION TYPE: XR Hip Limited LT DATE OF EXAM: 07/29/2018 COMPARISON: NONE HISTORY: Postop TECHNIQUE: One view submitted. FINDINGS: There is a prosthetic hip in near anatomic alignment. There is soft tissue edema and emphysema. IMPRESSION: 1. Postoperative change. Appears in near-anatomic alignment.
[2018-07-29] MEDS ORDERED: NALOXONE 0.4 MG/ML 1 ML VIAL IV PRN (14:16)
[2018-07-29] MEDS ORDERED: ONDANSETRON 4 MG/2 ML VIAL IVP PRN (14:16)
[2018-07-29] MEDS ORDERED: HYDROmorphone 0.5 MG/0.5 ML SYRINGE IVP PRN (14:16)
--- NOTE | 2018-07-29 14:16 | P.OP ---
Date of Procedure: 07/29/18 Preoperative Diagnosis: Left hip osteoarthritis Postoperative Diagnosis: Left hip osteoarthritis Procedure(s) Performed: Direct anterior left total hip arthroplasty Implants: 1. Depuy Corail KA size 11 press-fit femoral stem 2. Depuy pinnacle 52 mm press-fit acetabular shell 3. Depuy pinnacle 52 mm OD 36 mm ID neutral polyethylene acetabular liner 4. Biolox delta ceramic femoral head +1.5 36 mm Anesthesia: local, spinal Surgeon: Mario Santizo Rehab Office Coordinator #1: Tono Olguin Estimated Blood Loss (ml): 460 Pathology: other (Femoral head) Condition: stable Disposition: PACU Indications for Procedure: 78-year-old patient seen with progressive left hip pain. After treatment options were discussed, she elected to proceed with total hip arthroplasty. Operative Findings: see description of procedure Description of Procedure: The patient was taken to the operative suite. Patient underwent a spinal anesthetic by the department of anesthesia. Patient was then transferred to the [place] table. Patient was given preoperative IV antibiotics and TXA. Both lower extremities were placed in standard leg spars. The hip was then prepped and draped in the normal sterile orthopedic fashion. A standard anterior incision was made beginning 3 cm lateral and 1 cm distal to the ASIS extending 10 cm. Dissection was then carried down through the subcutaneous soft tissues down to the fascia overlying the tensor fascia jay. An incision was now made through the fascia. Careful dissection was taken down exposing the tensor fascia jay muscle. A Cobra retractor was now placed along the medial femoral neck and a second one along the lateral femoral neck. The venous circumflex vessels were now identified, cauterized and clipped. We identified the anterior hip capsule. An incision was made through the hip capsule along the lateral border. I performed a partial anterior capsulectomy. Retractors were now placed around the femoral neck itself. A femoral neck cut was now made with a sagittal saw. It was completed with an osteotome at the lateral neck area. The femoral head was now removed without difficulty. The extremity was now rotated to 45 of external rotation. It was locked in position. Residual labrum was now debrided out. Serial reaming was performed of the acetabulum while Nicolas BANEGAS assisted holding an anterior retractor for exposure. Once we reached the appropriate size and a trial was position and fit nicely. The appropriate size was now chosen opened and made available. It was introduced into the acetabulum without difficulty. The C-arm/fluoroscopy was now brought into the operative field. We made sure we had a true AP pelvic view. We now under direct C-arm/fluoroscopy introduced into the acetabular component with appropriate version and inclination. I held the cup in appropriate position well Nicolas BANEGAS used a mallet to seat the acetabular component. I noted the component now to be well seated and stable. Acetabular cup introduce her was removed. The C-arm was pulled back. An appropriate liner was introduced and clicked into position. It was felt to be stable. At this point retractors were removed. The extremity was now placed into 120 external rotation with no traction. The leg was now dropped to the ground and adducted. Appropriate retractors were now positioned along the proximal femur. We also placed our femoral look into position. Additional capsular releasing was performed to gain access to the proximal femur. We now used a box osteotome. A canal finder was now utilized. Serial broaching was now performed with the assistance of Nicolas BANEGAS tapping the broaches down with a mallet while held the broach in appropriate rotation and position. This was done until we reached the appropriate size with good overall rotational stability. Appropriate calcar planing was performed. A trial head/neck was placed into position. The hip was now reduced. The C-arm/fluoroscopy was brought back into the operative field. A spot film was obtained of the nonoperative hip. A spot film was obtained of the trial components. Overlays were performed, we noted good overall alignment and positioning for determining leg length. The C- arm/fluoroscopy was pulled back. Retractors were repositioned and the hip was dislocated. The leg was again taken down to the ground and adducted. Appropriate retractors were repositioned as well as the femoral hook. All trial components were removed. The femoral implant was opened along with the femoral head. The femoral implant was introduced on the appropriate handle into our pre-broached area. I held the component position well Nicolas BANEGAS used a mallet to seat the femoral component. The femoral component was now noted to be well seated and stable.. The femoral head was introduced with good positioning and fixation noted. Retractors were now removed. The hip was now reduced. There appeared be good positioning of the hip confirmed on intraoperative fluoroscopy. Spot films were obtained to document this. A second gram of TXA was given. The deep and superficial soft tissues were infiltrated with local analgesic. Bipolar cautery had been utilized intermittently through the procedure for hemostasis. The wound was irrigated copiously with pulse lavage mechanical irrigation. The fascia was repaired with Vicryl suture. The subcutaneous soft tissues were repaired in layers with Vicryl suture. The skin was approximated with pernio/Dermabond. Sterile dressings were applied. Patient was then awakened, transferred to a bed and taken to recovery in stable condition. Nicolas BANEGAS assisted with the complex procedure.
[2018-07-29] MEDS ORDERED: SODIUM CHLORIDE 0.9% 1,000 ML IV SCH (14:30)
[2018-07-29] MEDS ORDERED: diphenhydrAMINE 50 MG/ML 1 ML VIAL IVP ONE (14:43)
[2018-07-29] MEDS: fentaNYL (PF) 50 MCG/ML 2 ML AMP IV PRN ×2 (14:43→14:50)
--- NOTE | 2018-07-29 14:51 | FL ---
EXAMINATION TYPE: FL guidance operating room DATE OF EXAM: 07/29/2018 HISTORY: Flouroscopy time 28 seconds of fluoroscopy provided. IMPRESSION: 1. Fluoroscopy time.
[2018-07-29 14:52] LABS: Glucose,Whole Blood 194 mg/dL (75-99)
[2018-07-29] MEDS ORDERED: ALPRAZolam 0.5 MG TAB PO PRN (15:29)
[2018-07-29] MEDS: HYDROmorphone 1 MG/ML 1 ML SYRINGE IVP PRN ×2 (15:36→19:44)
[2018-07-29] MEDS: traMADol 50 MG TAB PO PRN (16:33)
[2018-07-29 17:37] LABS: Glucose,Whole Blood 183 mg/dL (75-99)
[2018-07-29] MEDS: INSULIN ASPART 100 UNIT/ML 1 ML 10 ML VIAL SQ SCH ×2 (17:52→20:26)
[2018-07-29] MEDS: FORMOTEROL FUMARATE 20 MCG/2 ML NEBU INHALATION SCH (19:31)
[2018-07-29] MEDS: BUDESONIDE 1 MG/2 ML NEBU INHALATION SCH (19:31)
[2018-07-29 20:01] LABS: Glucose,Whole Blood 204 mg/dL (75-99)
[2018-07-29] MEDS: PRAVASTATIN SODIUM 80 MG TAB PO SCH (20:25)
[2018-07-29] MEDS: guaiFENesin 600 MG TABLET.ER PO SCH (20:25)
[2018-07-29] MEDS: diphenhydrAMINE 25 MG CAP PO PRN (20:25)
[2018-07-29] MEDS: metFORMIN 500 MG TAB PO SCH (20:25)
[2018-07-29] MEDS: MIRTAZAPINE 15 MG TAB PO SCH (20:26)
[2018-07-29] MEDS: ceFAZolin IN SWFI 2 GM/20 ML SYRINGE IVP SCH (20:26)
[2018-07-29] MEDS: amLODIPine 5 MG TAB PO SCH (21:57)
[2018-07-30] MEDS: HYDROmorphone 1 MG/ML 1 ML SYRINGE IVP PRN ×2 (00:23→07:30)
[2018-07-30] MEDS: ceFAZolin IN SWFI 2 GM/20 ML SYRINGE IVP SCH (04:29)
[2018-07-30] MEDS: traMADol 50 MG TAB PO PRN ×4 (04:36→22:34)
[2018-07-30] MEDS: LACTATED RINGERS 1,000 ML IV SCH (05:29)
[2018-07-30 07:18] LABS: Glucose,Whole Blood 122 mg/dL (75-99)
[2018-07-30] MEDS: INSULIN ASPART 100 UNIT/ML 1 ML 10 ML VIAL SQ SCH ×4 (07:26→22:33)
[2018-07-30] MEDS: diphenhydrAMINE 25 MG CAP PO PRN ×2 (07:30→14:11)
[2018-07-30] MEDS: ALBUTEROL NEBULIZED 2.5 MG/3 ML INHALATION PRN ×2 (07:53→11:45)
[2018-07-30] MEDS: BUDESONIDE 1 MG/2 ML NEBU INHALATION SCH (07:57)
[2018-07-30] MEDS: FORMOTEROL FUMARATE 20 MCG/2 ML NEBU INHALATION SCH (07:57)
[2018-07-30] MEDS: ENOXAPARIN 40 MG/0.4 ML SYRINGE SQ SCH (08:29)
[2018-07-30] MEDS: ESCITALOPRAM 20 MG TAB PO SCH (08:29)
[2018-07-30] MEDS: FAMOTIDINE 20 MG TAB PO SCH (08:29)
[2018-07-30] MEDS: metFORMIN 500 MG TAB PO SCH ×2 (08:29→22:34)
[2018-07-30] MEDS: HYDROCHLOROTHIAZIDE 25 MG TAB PO SCH (08:29)
[2018-07-30] MEDS: guaiFENesin 600 MG TABLET.ER PO SCH ×2 (08:29→22:34)
[2018-07-30 09:03] LABS: Basophils % (A) 0 %; Eosinophils % (A) 0 %; HCT 33.2 % (34.0-46.0); Lymphocytes # (A) 1.8 k/uL (1.0-4.8); Lymphocytes % (A) 23 %; MCH 32.3 pg (25.0-35.0); MCHC 31.4 g/dL (31.0-37.0); MCV 102.7 fL (80.0-100.0); Macrocytosis Slight; Mean Platelet Volume 7.5; Monocytes # (A) 0.4 k/uL (0-1.0); Monocytes % (A) 5 %; Neutrophils # (A) 5.5 k/uL (1.3-7.7); Neutrophils % (A) 70 %; Platelet Count 168 k/uL (150-450); RBC 3.24 m/uL (3.80-5.40); RDW 13.5 % (11.5-15.5); WBC 7.8 k/uL (3.8-10.6)
[2018-07-30 09:08] LABS: HGB 10.4 gm/dL (11.4-16.0)
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
[2018-07-30 11:38] LABS: Glucose,Whole Blood 118 mg/dL (75-99)
[2018-07-30 11:39] LABS: Appearance,Urine Clear (Clear); Bilirubin,Urine Negative (Negative); Blood,Urine Negative (Negative); Color,Urine Light Yellow; Glucose,Urine (UA) Negative (Negative); Ketones,Urine Negative (Negative); Leukocyte Esterase,Urine Moderate (Negative); Nitrite,Urine Negative (Negative); PH, Urine 5.5 (5.0-8.0); Protein,Urine Negative (Negative); Specific Gravity,Urine 1.007 (1.001-1.035); Squamous Epithelial Cell,Urine 3 /hpf (0-4); Urobilinogen,Urine <2.0 mg/dL (<2.0)
[2018-07-30] MEDS ORDERED: HYDROcodone/APAP 7.5-325MG 1 EACH TAB PO PRN (11:42)
[2018-07-30] MEDS: HYDROcodone/APAP 7.5-325MG 1 EACH TAB PO PRN ×2 (11:51→17:56)
--- NOTE | 2018-07-30 12:12 | P.PN ---
Subjective Progress Note Date: 07/30/18 Principal diagnosis: Status post left total hip arthroplasty Patient seen today resting in her hospital bed, she appears comfortable. She's ambulated with therapy. She denies any chest pain or acute shortness of breath Objective - Vital Signs Vital signs: Vital Signs Temp 98.1 F 07/30/18 07:23 Pulse 82 07/30/18 12:00 Resp 16 07/30/18 07:23 BP 117/68 07/30/18 07:23 Pulse Ox 94 L 07/30/18 10:16 Intake & Output 07/29/18 07/30/18 07/30/18 18:59 06:59 18:59 Intake Total 2000 300 Output Total 460 Balance 1541 300 Weight 83.915 kg 83.915 kg Intake: IV 2000 Intake, IV Titration 300 Amount Sodium Chloride 0.9% 1, 300 000 ml @ 50 mls/hr IV . Q20H [facility] Rx#:[id number] Output: Estimated Blood Loss 460 Other: Voiding Method Bedside Commode Bedside Commode # Voids 2 2 - Exam Left lower extremity: Incision is clean, dry, and intact. The exofin fusion tape is in good condition. There is minimal soft tissue swelling and ecchymosis surrounding the medial and lateral aspects of the incision. Calf is soft, no tenderness with palpation. Plantar flexion, dorsiflexion, EHL, FHL are intact. Sensory exam to light touch throughout the extremity is intact, dorsal pedis pulses 2+. - Labs CBC & Chem 7: 07/30/18 08:34 Labs: Abnormal Lab Results - Last 24 Hours (Table) 07/29/18 07/29/18 07/29/18 Range/Units 14:48 17:36 20:00 RBC (3.80-5.40) m/uL Hgb (11.4-16.0) gm/dL Hct (34.0-46.0) % MCV (80.0-100.0) fL POC Glucose (mg/dL) 194 H 183 H 204 H (75-99) mg/dL Ur Leukocyte Esterase (Negative) 07/30/18 07/30/18 07/30/18 Range/Units 07:17 08:34 10:00 RBC 3.24 L (3.80-5.40) m/uL Hgb 10.4 L D (11.4-16.0) gm/dL Hct 33.2 L (34.0-46.0) % MCV 102.7 H (80.0-100.0) fL POC Glucose (mg/dL) 122 H (75-99) mg/dL Ur Leukocyte Esterase Moderate H (Negative) 07/30/18 Range/Units 11:29 RBC (3.80-5.40) m/uL Hgb (11.4-16.0) gm/dL Hct (34.0-46.0) % MCV (80.0-100.0) fL POC Glucose (mg/dL) 118 H (75-99) mg/dL Ur Leukocyte Esterase (Negative) Assessment and Plan Plan: Assessment: 1. Postop day 1 status post left total hip arthroplasty Plan: Pain control, will add [place] 1-2 tabs every 6 hours as needed GI and DVT prophylaxis, continue current medication Daily dressing changes/ice the Continue daily ambulation with therapy and use of walker Medical recommendations Discharge planning: Hopeful discharged home tomorrow Time with Patient: Less than 30
[2018-07-30] MEDS: HYDROmorphone 0.5 MG/0.5 ML SYRINGE IVP PRN ×2 (14:10→16:24)
--- NOTE | 2018-07-30 16:59 | CONS ---
CONSULTATION This is a very pleasant 78-year-old female who is postop day #1 status post left total hip arthroplasty on July [address] Santizo. She sees my partner, Dr. Lira, in the office for COPD. She is typically on albuterol and Symbicort. The patient is doing relatively well. She is resting comfortably. She does have oxygen on. She states she does not use oxygen at home. She apparently was given another medication which she reacted to. We believe it was probably Perforomist. Anyway, from the pulmonary standpoint, she is doing well now. In addition to COPD, she has history of diabetes mellitus, GERD, hyperlipidemia, hypertension, and previous history of pulmonary embolism. She sees Dr. Main as a primary and sees Dr. Lira for her lungs. Her surgery was done by Dr. Santizo. PAST MEDICAL HISTORY: Positive for COPD, diabetes mellitus, gastroesophageal reflux disease, hypertension, hyperlipidemia, pulmonary embolism, mediastinal adenopathy with a negative biopsy, diverticular disease, dysphagia, hiatal hernia, bowel obstruction, pyelonephritis, degenerative disc disease, chronic back pain, squamous cell skin cancer. SURGICAL HISTORY: Includes among other things appendectomy, back surgery, cholecystectomy, hysterectomy, tonsillectomy bronchoscopy, EGD, bilateral cataract surgery, lysis of adhesions, hysterectomy, rib resection, and other minor procedures. SOCIAL HISTORY: Positive for ongoing tobacco use. She denies any alcohol use. Denies any illicit drug use. FAMILY HISTORY: Positive for COPD and heart failure. HOME MEDICATIONS: Include pravastatin, famotidine, hydrochlorothiazide, Remeron, metformin, Symbicort, Xanax, Tylenol, albuterol updrafts, Ventolin inhaler, Mucinex, Lexapro, and amlodipine. ALLERGIES: Include TYLENOL, CODEINE, LATEX, NSAIDs, OXYCODONE AND PENICILLIN. SHE IS ALSO ALLERGIC TO SULFA ANTIBIOTICS. REVIEW OF SYSTEMS: CONSTITUTIONAL: Negative. NEUROLOGIC: Negative. HEENT: Negative. CARDIOVASCULAR: Negative. PULMONARY: Shortness of breath, chronic, she is at her baseline. She is coughing a bit but she feels like she is pretty much where she normally is at in regards to her COPD. GI/: Negative. RHEUMATOLOGIC: Left hip pain from recent surgery. IMMUNOLOGIC AND DERMATOLOGIC: Negative. PHYSICAL EXAMINATION: Current vital signs include temperature 98.1, heart rate 80, respiratory 16, blood pressure 117/68, mean 84 and 2 L saturation 96%. Appears in no acute distress. HEENT examination is grossly unremarkable. Nasal O2 in place. Mucous membranes are moist. No oral lesions. Neck supple. Full range of motion. No adenopathy or thyromegaly. Cardiovascular examination reveals regular rhythm and rate. S1, S2 normal. No S3, S4, or murmur. Lungs reveal a few scattered rhonchi. No wheezes or crackles. Breath sounds equal. Slight prolongation on forced maneuver. Abdomen is soft. Bowel sounds are heard. Extremities are intact. No cyanosis, clubbing, or edema. Skin without rash. Neurologic examination is brief but nonfocal. No chest x-ray was done. LABS: Reviewed. White count 7.8, hemoglobin 10.4, hematocrit 33.2, platelet count normal. Urine was negative. Medications were reviewed. She apparently was having some difficulty with Perforomist. That has been discontinued. She is currently just on albuterol updrafts q.i.d. and p.r.n. as well as her normal Symbicort 160/4.5, 2 puffs twice a day. The rest of her medications are appropriate. ASSESSMENT: 1. Post op day one status post left total hip arthroplasty. 2. Chronic obstructive pulmonary disease, stable. 3. Multiple other medical problems and comorbidities as listed above, all of which seem relatively stable at this time. PLAN: The patient's medications were reviewed. She apparently was getting a long-acting beta agonist solution which she had a reaction to. This was discontinued. She is currently on her Symbicort 160/4.5, 2 puffs twice a day, albuterol updrafts q.i.d. and p.r.n. She appears to be at baseline in regards to her COPD. We will continue to follow. Recommend deep breathing, coughing and clearing of secretions along with use of incentive spirometer. No additional recommendations are made. She is hoping to be able to be discharged home before the end of the weekend. She will follow up with her primary doctor, Dr. Main, and also follow up with my partner, Dr. Lira, who did clear her preoperatively for the surgery. MMODL / IJN: [id number] /
[2018-07-30 17:06] LABS: Glucose,Whole Blood 112 mg/dL (75-99)
[2018-07-30 17:41] LABS: Hemoglobin A1C 6.9 % (4.0-6.0)
[2018-07-30] MEDS: SYMBICORT 160-4.5 MCG INHALER INHALATION SCH (20:00)
[2018-07-30 20:21] LABS: Glucose,Whole Blood 158 mg/dL (75-99)
[2018-07-30] MEDS: amLODIPine 5 MG TAB PO SCH (22:29)
[2018-07-30] MEDS: PRAVASTATIN SODIUM 80 MG TAB PO SCH (22:34)
[2018-07-30] MEDS: MIRTAZAPINE 15 MG TAB PO SCH (22:35)
[2018-07-31] MEDS: HYDROcodone/APAP 7.5-325MG 1 EACH TAB PO PRN ×3 (00:03→11:12)
[2018-07-31] MEDS: traMADol 50 MG TAB PO PRN ×2 (03:53→09:37)
[2018-07-31] MEDS: LACTATED RINGERS 1,000 ML IV SCH (05:38)
[2018-07-31 07:24] LABS: Glucose,Whole Blood 128 mg/dL (75-99)
[2018-07-31 07:33] VITALS: BP 102/62; TEMP 98.3
[2018-07-31] MEDS: INSULIN ASPART 100 UNIT/ML 1 ML 10 ML VIAL SQ SCH ×2 (07:34→13:30)
[2018-07-31] MEDS: SYMBICORT 160-4.5 MCG INHALER INHALATION SCH (08:10)
[2018-07-31] MEDS: ALBUTEROL NEBULIZED 2.5 MG/3 ML INHALATION PRN (08:10)
[2018-07-31 08:26] VITALS: PULSE 84
[2018-07-31] MEDS: ENOXAPARIN 40 MG/0.4 ML SYRINGE SQ SCH (09:36)
[2018-07-31] MEDS: metFORMIN 500 MG TAB PO SCH (09:36)
[2018-07-31] MEDS: FAMOTIDINE 20 MG TAB PO SCH (09:36)
[2018-07-31] MEDS: guaiFENesin 600 MG TABLET.ER PO SCH (09:36)
[2018-07-31] MEDS: ESCITALOPRAM 20 MG TAB PO SCH (09:36)
[2018-07-31] MEDS: HYDROCHLOROTHIAZIDE 25 MG TAB PO SCH (09:36)
[2018-07-31] MEDS: diphenhydrAMINE 25 MG CAP PO PRN (09:37)
[2018-07-31 09:50] VITALS: RESP 17
[2018-07-31] MEDS ORDERED: LEVOFLOXACIN 500 MG TAB PO SCH (10:00)
--- NOTE | 2018-07-31 10:00 | P.PN ---
Subjective Progress Note Date: 07/31/18 78-year-old female with a past medical history significant for COPD, diabetes mellitus, GERD, hyperlipidemia, hypertension, and pulmonary embolus, who underwent left total hip arthroplasty on 07/29/2018. Dr. Main was consulted for medical management. The patient was seen and examined postoperatively on the medical unit. Patient is sitting up in the chair eating breakfast. Patient states her pain is tolerable at this time. Denies SOB. Denies chest pain. Denies nausea or vomiting. She reports urinary frequency this morning and is concerned she may have a urinary tract infection. She also has continuous IV fluids infusing, which will will discontinue. Vital signs have been stable. Afebrile. 07/31/2018 Patient examined at the bedside. Patient is requiring oxygen via nasal cannula to maintain oxygen saturations greater than 90%. She was in the 80s on room air. UA is abnormal with positive leukocyte esterase and WBC of 11. She denies nausea or vomiting. Denies chest pain or pressure. She denies SOB. She reports wheezing, but states that is her baseline. She is requesting to go home today. PHYSICAL EXAM: GENERAL: This is a 78-year-old female in no apparent distress at the time of examination. Pleasant and cooperative. HEENT: Head is atraumatic, normocephalic. Pupils are equal, round, and reactive to light. Sclerae anicteric. Conjunctivae are clear. Mucus membranes of the mouth are moist. Neck is supple. RESPIRATORY: Expiratory wheezing noted. No use of accessory muscles. Patient maintaining oxygen saturation greater than 92% on nasal cannula. No chest wall tenderness is noted on palpation or with deep breathing. CARDIOVASCULAR: Regular rate and rhythm. S1 and S2 noted. No JVD noted. No S3 or S4 noted. GASTROINTESTINAL: No distention noted. Abdomen soft and round. Normal active bowel sounds auscultated x 4 quadrants. No pain or tenderness noted upon palpation. INTEGUMENTARY: No cyanosis. No jaundice. No rashes noted. No cellulitis noted. EXTREMITIES: 2+ peripheral pulses. No evidence of peripheral edema. No calf tenderness noted. NEUROLOGIC: Cranial nerves II-XII intact. PSYCHIATRIC: Awake, alert, and oriented X 3. Appropriate affect. Intact judgement and insight. ASSESSMENT: Osteoarthritis, status post left total hip arthroplasty COPD, no evidence of acute exacerbation Urinary frequency and pyuria, suspected urinary tract infection, cultures pending Diabetes mellitus, type II Hypertension Hyperlipidemia History of UTI History of PE Obesity: BMI 32.8 PLAN: Continue postoperative care per orthopedics. Continue inhalers and neubulizers. Will begin levaquin for 3 days. Await results of urine culture. Encouraged patient to use incentive spirometer 10 times an hour. Wean oxygen as tolerated. Patient may require home oxygen if she is unable to be weaned off her o2. Activity as tolerated. PT/OT. Pain control. Monitor vital signs and address as appropriate. DVT prophylaxis: Lovenox 40mg subcu daily. GI prophylaxis: Pepcid 20 mg daily. Nurse practitioner note has been reviewed by physician. Signing provider agrees with the documented findings, assessment, and plan of care. Objective - Vital Signs Vital signs: Vital Signs Temp 98.3 F 07/31/18 07:20 Pulse 84 07/31/18 08:25 Resp 18 07/31/18 07:34 BP 102/62 07/31/18 07:20 Pulse Ox 98 07/31/18 07:34 Intake & Output 07/30/18 07/31/18 07/31/18 18:59 06:59 18:59 Intake Total 200 300 Balance 200 300 Weight 83.915 kg Intake: Intake, IV Titration 200 300 Amount Sodium Chloride 0.9% 1, 200 300 000 ml @ 50 mls/hr IV . Q20H [facility] Rx#:[id number] Other: Voiding Method Bedside Commode Toilet # Voids 3 - Labs CBC & Chem 7: 07/30/18 08:34 Labs: Abnormal Lab Results - Last 24 Hours (Table) 07/30/18 07/30/18 07/30/18 Range/Units 08:34 10:00 11:29 POC Glucose (mg/dL) 118 H (75-99) mg/dL Hemoglobin A1c 6.9 H (4.0-6.0) % Ur Leukocyte Esterase Moderate H (Negative) Urine WBC 11 H (0-5) /hpf 07/30/18 07/30/18 07/31/18 Range/Units 16:43 20:19 07:21 POC Glucose (mg/dL) 112 H 158 H 128 H (75-99) mg/dL Hemoglobin A1c (4.0-6.0) % Ur Leukocyte Esterase (Negative) Urine WBC (0-5) /hpf Microbiology - Last 24 Hours (Table) 07/30/18 10:00 Urine Culture - Preliminary Urine,Voided
--- NOTE | 2018-07-31 12:08 | P.PN ---
Subjective Progress Note Date: 07/31/18 Principal diagnosis: Status post left total hip arthroplasty Patient seen today resting in her hospital bed, she appears comfortable. She's ambulated with therapy. She denies any chest pain or acute shortness of breath Objective - Vital Signs Vital signs: Vital Signs Temp 98.3 F 07/31/18 07:20 Pulse 84 07/31/18 08:25 Resp 17 07/31/18 09:00 BP 102/62 07/31/18 07:20 Pulse Ox 95 07/31/18 09:00 Intake & Output 07/30/18 07/31/18 07/31/18 18:59 06:59 18:59 Intake Total 200 300 Balance 200 300 Weight 83.915 kg Intake: Intake, IV Titration 200 300 Amount Sodium Chloride 0.9% 1, 200 300 000 ml @ 50 mls/hr IV . Q20H [facility] Rx#:[id number] Other: Voiding Method Bedside Commode Toilet # Voids 3 - Exam Left lower extremity: Incision is clean, dry, and intact. The exofin fusion tape is in good condition. There is minimal soft tissue swelling and ecchymosis surrounding the medial and lateral aspects of the incision. Calf is soft, no tenderness with palpation. Plantar flexion, dorsiflexion, EHL, FHL are intact. Sensory exam to light touch throughout the extremity is intact, dorsal pedis pulses 2+. - Labs CBC & Chem 7: 07/30/18 08:34 Labs: Abnormal Lab Results - Last 24 Hours (Table) 07/30/18 07/30/18 07/30/18 Range/Units 08:34 10:00 16:43 POC Glucose (mg/dL) 112 H (75-99) mg/dL Hemoglobin A1c 6.9 H (4.0-6.0) % Urine WBC 11 H (0-5) /hpf 07/30/18 07/31/18 Range/Units 20:19 07:21 POC Glucose (mg/dL) 158 H 128 H (75-99) mg/dL Hemoglobin A1c (4.0-6.0) % Urine WBC (0-5) /hpf Microbiology - Last 24 Hours (Table) 07/30/18 10:00 Urine Culture - Preliminary Urine,Voided Assessment and Plan Plan: Assessment: Postop day #2 status post left total hip arthroplasty Plan: Pain control, plan for discharge on [place] 7.5 mg/325 mg GI and DVT prophylaxis, aspirin 81 mg twice a day to discharge Daily dressing changes/ice and elevate Continue daily ambulation with therapy and use of walker Medical recommendations Discharge planning: Noemí discharged home today Time with Patient: Less than 30
[2018-07-31 12:14] LABS: Glucose,Whole Blood 143 mg/dL (75-99)
--- NOTE | 2018-07-31 12:17 | P.DS ---
Providers Date of admission: 07/29/18 09:50 Expected date of discharge: 07/31/18 Attending physician: Mario Santizo Consults: 07/29/18 14:16 Consult Physician Routine Consulting Provider: Enrique Main Reason/Comments: Medical management Do you want consulting provider notified?: Yes Primary care physician: Enrique Main [facility] Course: Date of admission: 07/29/2018 Date of discharge: 07/31/2018 Admission diagnosis: Status post left total hip arthroplasty Discharge diagnosis: Same Attending physician: Dr. Santizo Surgical procedures: Left total hip arthroplasty Brief history: Patient is a 78-year-old female with a history of progressive primary left hip osteoarthritis. At this point patient has failed conservative treatment measures and has opted to proceed with a elective left total hip arthroplasty. Hospital course: Details of patient's surgery can be found in operative report. Patient tolerated the procedure well and was subsequently transported to orthopedic floor. Patient's orthopeidc and medical care was provided daily. Patient had daily laboratory tests performed for evaluation of overall blood counts. Patient had daily physical therapy to include strengthening range of motion as well as education with walker ambulation. Patient was treated with Lovenox for their postoperative DVT prophylaxis during their inpatient stay. Patient was noted to have a relatively uneventful postoperative course. Patient reported satisfactory pain control with oral pain medications by postoperative day 0. Patient showed satisfactory progress with physical therapy. Patient moved steadily through the program and had no difficulty meeting the goals by postoperative day 2. Given patient's otherwise satisfactory course and having met physical therapy goals, plan is to discharge patient home on postoperative day 2. Discharge condition/disposition: Patient will be discharged home in stable condition. Discharge medications: Instructions are given on resumption of patient's normal daily medications per primary care recommendation, in addition patient will be prescribed [place] 7.5 mg/325 mg, aspirin 81 mg, tramadol 50mg, levaquin 500mg. Discharge instructions: 1. Wound care and infection precautions, keep incision dry and covered while showering, no lotions, creams, moisturizers. No soaking, tubs, pools, hottubs. Do not scrub over the incision. 2. Weight-bear as tolerated with walker / cane until follow-up. 3. Ice and elevate when necessary. Do not exceed 20 minutes per hour with ice pack. 4. Utilize compression sleeve until seen at first follow up appointment. 5. Visiting nursing care. 6. Home physical therapy. 7. Pain meds and anticoagulants per prescription. 8. Pain medication has potential to cause constipation. Increase oral fluid and fiber intake. Contact primary care provider if you have not had a bowel movement within 48 hours after discharge 9. No anti-inflammatory medication until discussed at first post operative visit, this including Motrin, Aleve, Mobic, Diclofenac. 10. Follow up in office at 2 weeks postop with Nicolas Olguin PA-C 11. Follow up with your primary care doctor 7-10 days after discharge. 12. Contact [facility] with any questions, . Procedures: Left total hip arthroplasty Patient Condition at Discharge: Good Plan - Discharge Summary Discharge Rx Participant: No New Discharge Prescriptions: New Aspirin [Adult Low Dose Aspirin EC] 81 mg PO BID #60 tablet. HYDROcodone/APAP 7.5-325MG [[place] 7.5] 1 - 2 each PO Q6HR PRN #56 tab PRN Reason: Pain Levofloxacin [Levaquin] 500 mg PO DAILY 3 Days #3 tab traMADol HCl [Ultram] 50 mg PO Q6H PRN #28 tab PRN Reason: Pain No Action Pravastatin Sodium [Pravachol] 80 mg PO HS Famotidine [Pepcid] 20 mg PO BID metFORMIN HCL [Glucophage] 500 mg PO BID Mirtazapine [Remeron] 15 mg PO HS Hydrochlorothiazide [Hydrodiuril] 25 mg PO QAM Budesonide-Formot 160-4.5 Mcg [Symbicort 160-4.5 Mcg Inhaler] 2 puff INHALATION RT-BID #1 puff ALPRAZolam [Xanax] 0.5 mg PO BID PRN PRN Reason: Agitation Or Acute Anxiety Acetaminophen Tab [Tylenol] 650 mg PO Q6HR PRN tab PRN Reason: Fever And/ Or Pain Albuterol Nebulized [Ventolin Nebulized] 2.5 mg INHALATION RT-QID PRN nebu PRN Reason: Shortness Of Breath guaiFENesin [Mucinex] 1,200 mg PO Q12HR #20 tablet.er amLODIPine BESYLATE 5 mg PO HS Escitalopram [Lexapro] 20 mg PO QAM Discharge Medication List Pravastatin Sodium [Pravachol] 80 mg PO HS 10/05/16 [History] Famotidine [Pepcid] 20 mg PO BID 02/14/17 [History] Hydrochlorothiazide [Hydrodiuril] 25 mg PO QAM 04/02/18 [History] Mirtazapine [Remeron] 15 mg PO HS 04/02/18 [History] metFORMIN HCL [Glucophage] 500 mg PO BID 04/02/18 [History] Budesonide-Formot 160-4.5 Mcg [Symbicort 160-4.5 Mcg Inhaler] 2 puff INHALATION RT-BID #1 puff 04/07/18 [Rx] ALPRAZolam [Xanax] 0.5 mg PO BID PRN 04/13/18 [History] Acetaminophen Tab [Tylenol] 650 mg PO Q6HR PRN tab 04/14/18 [Rx] Albuterol Nebulized [Ventolin Nebulized] 2.5 mg INHALATION RT-QID PRN nebu 09/30 [Rx] guaiFENesin [Mucinex] 1,200 mg PO Q12HR #20 tablet.er 04/14/18 [Rx] Escitalopram [Lexapro] 20 mg PO QAM 07/24/18 [History] amLODIPine BESYLATE 5 mg PO HS 07/24/18 [History] Aspirin [Adult Low Dose Aspirin EC] 81 mg PO BID #60 tablet.dr 07/31/18 [Rx] HYDROcodone/APAP 7.5-325MG [[place] 7.5] 1 - 2 each PO Q6HR PRN #56 tab 07/31/18 [ Rx] Levofloxacin [Levaquin] 500 mg PO DAILY 3 Days #3 tab 07/31/18 [Rx] traMADol HCl [Ultram] 50 mg PO Q6H PRN #28 tab 07/31/18 [Rx] Follow up Appointment(s)/Referral(s): [facility], [NON-STAFF] - Tono Olguin PAC [PHYSICIAN [employer] GAUGER] - 2 Weeks Activity/Diet/Wound Care/Special Instructions: Orthopedic Discharge Instructions: 1. Wound care and infection precautions, keep incision dry and covered while showering, no lotions, creams, moisturizers. No soaking, pools, hot tubs. Do not scrub over incision. 2. Weight-bear as tolerated with walker / cane until follow-up. 3. Ice and elevate when necessary. Do not exceed 20 minutes per hour with ice pack. 4. Utilize compression sleeve until seen at first follow up appointment. 5. Pain meds and anticoagulants per prescription. 6. Pain medication has potential to cause constipation. Increase oral fluid and fiber intake. Contact primary care provider if you have not had a bowel movement within 48 hours after discharge. 7. No anti-inflammatory medication until discussed at first post operative visit, this including Motrin, Aleve, Mobic, Diclofenac. 8. Follow up in office at 2 weeks postop with Nicolas Olguin PA-C 9. Follow up with your primary care doctor 7-10 days after discharge. 10. Contact [facility] with any questions, . Discharge Disposition: HOME WITH HOME HEALTH SERVICES
--- NOTE | 2018-07-31 14:17 | PN ---
PROGRESS NOTE DATE OF SERVICE: 07/31/2018. This is a 78-year-old female that we saw yesterday. She is postop day #2, status post left total hip arthroplasty. The surgery was done by Dr. Santizo on 07/29. We are asked to see her because my partner, Dr. Lira, sees her in the office for COPD. She is typically on short-acting beta agonists, albuterol sulfate and Symbicort, which is a combination inhaled corticosteroids/long-acting beta agonist. Today, she is doing better. She is sitting up in the chair. She is still on oxygen therapy. I told that she may have to go home on oxygen therapy transiently. She is back to her usual medications. This is what she takes at home. She apparently was on Perforomist here earlier, but did not like it and she was having some sort of reaction to it. In addition to COPD, she has a history of diabetes, GERD, hyperlipidemia, hypertension, and a previous history of pulmonary embolism. Her primary is Dr. Enrique Main. Today, she has no complaints. She does have pain at the surgical site but denies any difficulty breathing, coughing, wheezing, or phlegm production. Currently, vital signs include temperature 98.3, heart rate 84, respiratory rate 17, blood pressure 102/62 mean 75 and a 2 L saturation 98%. On room air. Apparently, she dropped down to 80%. HEENT examination is grossly unremarkable. Mucous membranes are moist. Nasal O2 in place. Neck is supple. Full range of motion. No adenopathy or thyromegaly. Neck veins are flat. Cardiovascular examination reveals regular rhythm and rate. S1, S2 normal. No S3, S4, or murmur. Lungs reveal mostly clear breath sounds. Breath sounds are diminished throughout. A few scattered mild rhonchi. No wheezes or crackles. Abdomen is soft. Bowel sounds are heard. Extremities are intact. No cyanosis, clubbing, or edema. Skin without rash. Neurologic examination is brief but nonfocal. X-RAY DATA: Reviewed. Nothing from today is back yet. Microbiologic studies are all negative. No additional x-rays were done. Medications are reviewed. ASSESSMENT: 1. Postoperative day #2 status post left total hip arthroplasty (SUMMER). 2. Chronic obstructive pulmonary disease, stable at this time. 3. History of diabetes mellitus. 4. History of gastroesophageal reflux disease. 5. History of hyperlipidemia. 6. History of benign essential hypertension. 7. Previous history of pulmonary embolism. PLAN: Patient is doing well. Will continue to follow. She is on appropriate medications. I told her to continue with deep breathing coughing and clearing of secretions and use of the incentive spirometer q.1 hour. There is a chance she may have to go home transiently on oxygen therapy. She understands. She will follow up with Dr. Lira post hospitalization. MMODL / IJN: [id number] /
== END 2018-07-31 15:41 | disposition home health service (06) | DRG 470 ==
LOC: 2ORMAIN 09:50 → 4SSUR 14:00
PROVIDERS: ADMIT Orthopaedic Surgery; ATTEND Orthopaedic Surgery
PROC: 0SRB04A Replacement of Left Hip Joint with Ceramic on Polyethylene Synthetic Substitute, Uncemented, Open Approach (ICD-10-PCS; principal; 2018-07-29 12:10)
DX: M16.12 Unilateral primary osteoarthritis, left hip (principal); J44.9 Chronic obstructive pulmonary disease, unspecified; E11.9 Type 2 diabetes mellitus without complications; I10 Essential (primary) hypertension; E78.5 Hyperlipidemia, unspecified; K21.9 Gastro-esophageal reflux disease without esophagitis; F41.9 Anxiety disorder, unspecified; F32.9 Major depressive disorder, single episode, unspecified; K44.9 Diaphragmatic hernia without obstruction or gangrene; R13.10 Dysphagia, unspecified; K57.90 Diverticulosis of intestine, part unspecified, without perforation or abscess without bleeding; N39.3 Stress incontinence (female) (male); G89.29 Other chronic pain; M54.5 Low back pain; R59.0 Localized enlarged lymph nodes; E66.9 Obesity, unspecified; Z68.32 Body mass index [BMI] 32.0-32.9, adult; F17.210 Nicotine dependence, cigarettes, uncomplicated; Z71.6 Tobacco abuse counseling; Z79.51 Long term (current) use of inhaled steroids; Z79.84 Long term (current) use of oral hypoglycemic drugs; Z79.899 Other long term (current) drug therapy; Z90.710 Acquired absence of both cervix and uterus; Z90.49 Acquired absence of other specified parts of digestive tract; Z87.440 Personal history of urinary (tract) infections; Z86.711 Personal history of pulmonary embolism; Z85.828 Personal history of other malignant neoplasm of skin; Z98.42 Cataract extraction status, left eye; Z98.41 Cataract extraction status, right eye; Z96.1 Presence of intraocular lens; Z88.5 Allergy status to narcotic agent; Z88.0 Allergy status to penicillin; Z88.2 Allergy status to sulfonamides; Z88.8 Allergy status to other drugs, medicaments and biological substances; Z91.040 Latex allergy status; Z82.49 Family history of ischemic heart disease and other diseases of the circulatory system; Z82.5 Family history of asthma and other chronic lower respiratory diseases
CPT/HCPCS: 73501; 81001; 83036; 85025; 86850; 86900; 86901; 87086; 88300; 94640; 94760

== ENCOUNTER → 2019-01-21 | Outpatient (CLI) | payer MEDICARE ==
--- NOTE | 2019-01-21 14:37 | US ---
EXAMINATION TYPE: US kidneys/renal and bladder DATE OF EXAM: 01/21/2019 COMPARISON: CT dated 2016 CLINICAL HISTORY: N18.3 CKD. EXAM MEASUREMENTS: Right Kidney: 8.9 x 4.1 x 4.1 cm Left Kidney: 11.1 x 4.5 x 4.9 cm Right Kidney: cortical defects, atrophied Left Kidney: No hydronephrosis or masses seen Bladder: wnl Bilateral Jets seen: yes There is no evidence for hydronephrosis at this point in time. No nephrolithiasis is seen. No faustino s are identified. The urinary bladder is anechoic. Bilateral ureteral jets are seen. IMPRESSION: 1. No hydronephrosis or nephrolithiasis. 2. Right renal atrophy and multiple cortical scars
== END | disposition home or self-care (01) ==
LOC: RADUSWWP 14:03
PROVIDERS: ATTEND Internal Medicine
DX: N26.1 Atrophy of kidney (terminal) (principal)
CPT/HCPCS: 76770

== ENCOUNTER → 2019-04-24 | Outpatient (CLI) | payer MEDICARE ==
[2019-04-24 11:07] LABS: HGB 13.5 gm/dL (11.4-16.0); MCH 33.8 pg (25.0-35.0); MCHC 33.9 g/dL (31.0-37.0); MCV 99.7 fL (80.0-100.0); Mean Platelet Volume 7.2; Platelet Count 227 k/uL (150-450); RBC 4.01 m/uL (3.80-5.40); RDW 13.7 % (11.5-15.5); WBC 6.2 k/uL (3.8-10.6)
[2019-04-24 11:10] LABS: Appearance,Urine Cloudy (Clear); Bacteria,Urine Moderate /hpf; Bilirubin,Urine Negative (Negative); Blood,Urine Trace (Negative); Color,Urine Light Yellow; Glucose,Urine (UA) Negative (Negative); Ketones,Urine Negative (Negative); Leukocyte Esterase,Urine Large (Negative); Mucus,Urine Rare /hpf; Nitrite,Urine Positive (Negative); PH, Urine 5.5 (5.0-8.0); Protein,Urine Trace (Negative); RBC,Urine 3 /hpf (0-5); Specific Gravity,Urine 1.014 (1.001-1.035); Squamous Epithelial Cell,Urine 5 /hpf (0-4); Urobilinogen,Urine <2.0 mg/dL (<2.0)
[2019-04-24 16:42] LABS: Iron Saturation 18.24 (12.00-45.00)
[2019-04-24 16:51] LABS: Vitamin D 25 Hydroxy 15.6 ng/mL (30.0-100.0)
[2019-04-24 16:56] LABS: African American GFR (CKD) 49.8 (60.0-200.0); Albumin 4.4 g/dL (3.80-4.90); Albumin/Globulin Ratio 2.32 (1.60-3.17); Anion Gap 6.3 mmol/L (4.00-12.00); BUN/Creat Ratio 15.83 Ratio (12.00-20.00); Calcium 9.2 mg/dL (8.7-10.3); Carbon Dioxide 22.7 mmol/L (21.6-31.8); Globulin 1.9 g/dL (1.6-3.3); Magnesium 1.8 mg/dL (1.5-2.4); Phosphorus 4.2 mg/dL (2.4-5.1); Potassium 4.5 mmol/L (3.5-5.5); Total Bilirubin 0.2 mg/dL (0.3-1.2); Total Protein 6.3 g/dL (6.2-8.2); Uric Acid 5.3 mg/dL (2.9-7.7)
== END | disposition home or self-care (01) ==
LOC: LABWHC1 10:29
PROVIDERS: ATTEND Internal Medicine
DX: M10.9 Gout, unspecified (principal); E55.9 Vitamin D deficiency, unspecified; N64.9 Disorder of breast, unspecified; N18.3 Chronic kidney disease, stage 3 (moderate)
CPT/HCPCS: 36415; 80053; 81001; 82306; 82728; 83540; 83550; 83735; 83970; 84100; 84550; 85027; 87086

== ENCOUNTER → 2019-06-13 | Outpatient (CLI) | payer MEDICARE ==
--- NOTE | 2019-06-13 10:47 | XR ---
EXAMINATION TYPE: XR shoulder limited LT DATE OF EXAM: 06/13/2019 COMPARISON: NONE HISTORY: Pain TECHNIQUE: Two views are submitted. FINDINGS: The osseous structures are intact. There is no acute fracture or dislocation. The AC joint is narro wed. There is a metallic density overlying the left upper lung field. No acute fracture. No dislocati on. IMPRESSION: 1. Severe AC joint arthropathy
== END | disposition home or self-care (01) ==
LOC: RADXRMAIN 10:26
PROVIDERS: ATTEND Orthopaedic Surgery
DX: M12.812 Other specific arthropathies, not elsewhere classified, left shoulder (principal)

== ENCOUNTER → 2019-07-28 | Outpatient (CLI) | payer MEDICARE ==
--- NOTE | 2019-07-28 15:12 | MR ---
EXAMINATION TYPE: MR shoulder LT wo con DATE OF EXAM: 07/28/2019 COMPARISON: Left shoulder x-rays dated 06/13/2019 HISTORY: Left shoulder pain TECHNIQUE: Multiplanar, multisequence imaging of the left shoulder is performed without contrast. FINDINGS: Rotator Cuff: There is an elongated intrasubstance tear of the supraspinatus measuring 2.7 x 0.8 cm p roximally and the muscular belly proximal to the myotendinous junction. Distally there is a partial t hickness articular surface tear of the mid to anterior fibers measuring 1.0 x 1.0 cm with demonstrati on of the insertional fibers anteriorly. There is also bursal surface fiber fraying. Mild background tendinosis. There is a punctate 2 mm articular surface tear of the insertional fibers of the infraspinatus and mi ld tendinopathy with bursal surface fiber fraying. Teres minor and subscapularis are unremarkable in muscle volume and signal. Acromioclavicular Joint: There is mild acromioclavicular arthropathy with capsular hypertrophy and sm all osteophytes. A single downsloping osteophyte of the distal clavicle has slight mass effect on the supraspinatus myotendinous junction. Glenohumeral Joint: Mild narrowing and small marginal osteophytes. Labrum: The labrum appears grossly intact given limitation of non-arthrogram study. Superior labral d egeneration. Biceps Tendon: The long head of biceps is in normal location within bicipital groove. Bone marrow signal: No focal abnormal marrow signal is appreciated. Other: There is a scant amount of fluid in the subcoracoid and subacromial/subdeltoid bursitis. IMPRESSION: 1. Partial-thickness articular surface insertional tear of the mid to anterior fibers of the supraspi natus measuring 1.0 x 1.0 cm with bursal surface fiber fraying and mild background tendinosis. 2. Elongated intrasubstance tear of the supraspinatus proximal muscle belly measuring 2.7 x 0.8 cm. 3. Punctate 2 mm articular surface tear of the insertional fibers of the infraspinatus with mild tend inopathy. 4. Mild acromioclavicular and glenohumeral arthropathy. Abdominal projecting osteophyte from the dist al clavicle minimally impresses on the supraspinatus. 5. Scant amount of fluid in the subcoracoid and subacromial/subdeltoid bursa is. Correlate for bursit is clinically.
== END ==
LOC: RADMRIMAIN 11:57
PROVIDERS: ATTEND Orthopaedic Surgery
DX: M75.112 Incomplete rotator cuff tear or rupture of left shoulder, not specified as traumatic (principal); M12.812 Other specific arthropathies, not elsewhere classified, left shoulder; M25.712 Osteophyte, left shoulder; M25.412 Effusion, left shoulder

== ENCOUNTER → 2019-09-04 | Outpatient (CLI) | payer MEDICARE ==
[2019-09-04 13:15] LABS: Basophils % (A) 1 %; Eosinophils # (A) 0.1 k/uL (0-0.7); Eosinophils % (A) 1 %; HGB 13.9 gm/dL (11.4-16.0); Lymphocytes # (A) 1.7 k/uL (1.0-4.8); Lymphocytes % (A) 28 %; MCH 32.3 pg (25.0-35.0); MCHC 31.5 g/dL (31.0-37.0); MCV 102.4 fL (80.0-100.0); Macrocytosis Slight; Mean Platelet Volume 7.6; Monocytes # (A) 0.3 k/uL (0-1.0); Monocytes % (A) 5 %; Neutrophils # (A) 3.9 k/uL (1.3-7.7); Neutrophils % (A) 63 %; Platelet Count 195 k/uL (150-450); RBC 4.29 m/uL (3.80-5.40); RDW 13.4 % (11.5-15.5); WBC 6.2 k/uL (3.8-10.6)
[2019-09-04 18:44] LABS: African American GFR (CKD) 49.8 (60.0-200.0); Anion Gap 7.2 mmol/L (4.00-12.00); Calcium 9.6 mg/dL (8.7-10.3); Carbon Dioxide 25.8 mmol/L (21.6-31.8); Non-African American GFR(CKD) 42.9 (60.0-200.0); Potassium 4.3 mmol/L (3.5-5.5)
== END | disposition home or self-care (01) ==
LOC: LABWHC1 12:18
PROVIDERS: ATTEND Internal Medicine Critical Care Medicine
DX: Z01.812 Encounter for preprocedural laboratory examination (principal)
CPT/HCPCS: 36415; 80048; 85025

== ENCOUNTER 2019-09-11 05:49 | Day surgery (SDC) | payer MEDICARE ==
[2019-09-08 16:17] VITALS: BMI 34.0
--- NOTE | 2019-09-10 13:58 | HP ---
HISTORY AND PHYSICAL DATE OF SURGERY: 09/11/2019 Paige Huddleston is a 79-year-old patient seen with progressive left shoulder pain. We discussed options, she elected to proceed with left shoulder arthroscopy. Consent was obtained. Medical clearance was provided for Dr. Lira. PAST MEDICAL HISTORY: Hypertension, hyperlipidemia, [id number] diabetes, emphysema. PAST SURGICAL HISTORY: Lumbar spine surgery, total hip arthroplasty, breast reduction. DAILY MEDICATIONS: 1. Amlodipine. 2. hydrochlorothiazide. 3. Metformin. 4. Pravastatin. 5. Symbicort. ALLERGIES: PENICILLIN, SULFA, DARVON, CODEINE, LATEX, NSAIDs. SOCIAL HISTORY: She smokes 1 pack of cigarettes daily. PHYSICAL EVALUATION OF THE LEFT SHOULDER: Flexion 90 degrees, abduction 80 degrees, external rotation is 40 degrees with weakness, tenderness along the anterior lateral acromion rotator cuff insertion site. Impingement is positive at 90 degrees. Distal neurovascular exam is intact. . LEFT SHOULDER RADIOGRAPHS: Revealed a type 2 acromion as well as acromioclavicular joint osteoarthritis. MRI of the left shoulder revealed a rotator cuff tendon tear. IMPRESSION: 1. Left shoulder impingement with rotator cuff tear. 2. Hypertension. 3. Hyperlipidemia. 4. Tobacco use. 5. Emphysema. PLAN: Left shoulder arthroscopy with subacromial decompression, arthroscopic rotator cuff repair, Mimi and debridement. MMODL / IJN: [id number] /
[2019-09-11] MEDS ORDERED: fentaNYL (PF) 50 MCG/ML 2 ML AMP IV PRN (06:09)
[2019-09-11] MEDS ORDERED: ONDANSETRON 4 MG/2 ML VIAL IVP ONE (06:09)
[2019-09-11] MEDS ORDERED: LACTATED RINGERS 1,000 ML IV SCH (06:09)
[2019-09-11] MEDS ORDERED: LIDOCAINE 1% 20 ML VIAL (10MG/ML) FOR IV START INTRADERMA PRN (06:09)
[2019-09-11 06:39] LABS: Glucose,Whole Blood 146 mg/dL (75-99)
[2019-09-11] MEDS ORDERED: MIDAZOLAM 2 MG/2 ML VIAL IV ONE (07:12)
[2019-09-11] MEDS ORDERED: SUCCINYLCHOLINE CHLORIDE 100 MG/5 ML SYR IV ONE (07:33)
[2019-09-11] MEDS ORDERED: fentaNYL (PF) 50 MCG/ML 2 ML AMP ONE (07:33)
[2019-09-11] MEDS ORDERED: PROPOFOL 10 MG/ML 20 ML VIAL IV ONE (07:33)
[2019-09-11] MEDS ORDERED: LIDOCAINE 1% INJ 10MG/ML (20 ML MDV) ONE (07:33)
[2019-09-11] MEDS ORDERED: ROPIVACAINE 5 MG/ML 30 ML VIAL ONE (07:33)
[2019-09-11] MEDS ORDERED: PHENYLEPHRINE-0.9% NACL SYG 1 MG/10 ML SYRINGE ONE (07:33)
[2019-09-11] MEDS ORDERED: BUPIVACAINE (PF) 0.25% 30 ML VIAL INTRAARTIC ONE (08:06)
--- NOTE | 2019-09-11 08:56 | P.OP ---
Date of Procedure: 09/11/19 Preoperative Diagnosis: Left shoulder impingement Postoperative Diagnosis: 1. Left shoulder rotator cuff tear 2. Left shoulder impingement 3. Left shoulder acromioclavicular joint osteoarthritis 4. Left shoulder partial long head biceps tendon tear 5. Left shoulder superficial labral tear Procedure(s) Performed: 1. Left shoulder arthroscopic rotator cuff repair 2. Left shoulder arthroscopic subacromial decompression 3. Left shoulder arthroscopic Mimi procedure 4. Left shoulder arthroscopic biceps tenotomy 5. Left shoulder arthroscopic debridement labral tear Implants: 14.75 Arthrex swivel lock anchor Anesthesia: GETA, regional (Interscalene block) Surgeon: Mario Santizo Diamond Cutter #1: Tono Olguin Estimated Blood Loss (ml): 10 Pathology: none sent Condition: stable Disposition: PACU Indications for Procedure: 79-year-old patient seen with progressive left shoulder pain. After having treatment options discussed, she elected to proceed with arthroscopy. Operative Findings: See description of procedure Description of Procedure: Patient underwent an interscalene block by department of anesthesia for postoperative pain management. The patient was then taken to the operative suite. The patient underwent a general anesthetic by the department of anesthesia. The patient was placed into a lateral position and secured. There was appropriate padding of the bony prominence. Left shoulder was then prepped and draped in normal sterile orthopedic fashion. We placed the extremity in 10 pounds of longitudinal traction. A posterior incision was now made for a posterior working portal site. The trocar and cannula were inserted into the glenohumeral joint. Arthroscopy was initiated. Spinal needle was now inserted anteriorly, to ascertain the anterior working portal site. An incision was now made in that area, a trocar was inserted followed by a probe. There was some hyperemia and partial tearing long head biceps tendon. There was some superficial tearing of the superior labrum. There were grade 1 chondromalacia changes of the glenoid fossa. The remainder labrum appeared stable. I performed an arthroscopic biceps tenotomy. I debrided that labral tear down to stable labral tissue. The residual labrum was stable. Instruments were now removed from glenohumeral joint. Utilizing the posterior working portal site, the trocar and cannula were inserted into the subacromial space. Arthroscopy initiated. I made an incision 2 fingerbreadths lateral to the acromion. I introduced my trocar followed by my ArthroCare ablator. I now began ablating thick subacromial bursal tissue, which exposed the undersurface of the anterior acromion. There was diminished subacromial space. There was a very prominent anterior acromion. A motorized bur was introduced and a subacromial decompression was performed. I also excised some osteophytes off the inferior aspect of the distal clavicle. The AC joint was visualized and noted to be fairly arthritic. The motorized bur was introduced in the anterior portal site and a Mimi procedure was performed without difficulty, decompressing the AC joint nicely. I turned my attention to the rotator cuff. There was a 1.5 cm rotator cuff tear. I debrided the margins getting down to stable tendon tissue. I introduced my motorized bur and abraded the footprint area, getting some petechial bleeding. I passed 2 everted mattress sutures through good bites of rotator cuff tendon. I now punched to holes and abraded footprint area for insertion of an anchor. I passed all 4 limbs of suture through the eyelet of a 4.75 Arthrex swivel lock anchor. I introduced the eyelet of the anchor into her pre-punch hole. I held into position on the Nicolas BANEGAS tensioned the sutures and deployed the anchor. We had good fixation of the anchor. All residual suture limbs were now clipped. We had good compression of the tendon along the entire footprint. I injected 1 mL Renyte intra-articular. Instruments now removed from the portal sites. All portal sites were approximated with nylon suture. Sterile dressings were applied followed by a shoulder immobilizer. Tono BANEGAS assisted in this complex case. The patient was awakened, transferred to a bed, and taken to recovery in stable condition.
[2019-09-11 09:01] VITALS: TEMP 96.8
[2019-09-11 10:47] VITALS: RESP 16
[2019-09-11 11:32] VITALS: BP 112/77; PULSE 81
== END 2019-09-11 11:37 | disposition home or self-care (01) ==
LOC: OR 05:49
PROVIDERS: ATTEND Orthopaedic Surgery
DX: M75.102 Unspecified rotator cuff tear or rupture of left shoulder, not specified as traumatic (principal); M75.42 Impingement syndrome of left shoulder; M19.012 Primary osteoarthritis, left shoulder; S46.112A Strain of muscle, fascia and tendon of long head of biceps, left arm, initial encounter; S43.432A Superior glenoid labrum lesion of left shoulder, initial encounter; M94.212 Chondromalacia, left shoulder; I10 Essential (primary) hypertension; E78.5 Hyperlipidemia, unspecified; E11.9 Type 2 diabetes mellitus without complications; J43.9 Emphysema, unspecified; F17.210 Nicotine dependence, cigarettes, uncomplicated; Z88.5 Allergy status to narcotic agent; Z91.040 Latex allergy status; Z88.6 Allergy status to analgesic agent; Z96.649 Presence of unspecified artificial hip joint; Z90.710 Acquired absence of both cervix and uterus; Z98.890 Other specified postprocedural states; Z79.51 Long term (current) use of inhaled steroids; Z79.84 Long term (current) use of oral hypoglycemic drugs; Z79.899 Other long term (current) drug therapy; Z88.8 Allergy status to other drugs, medicaments and biological substances; Z88.0 Allergy status to penicillin; Z88.2 Allergy status to sulfonamides; X58.XXXA Exposure to other specified factors, initial encounter
CPT/HCPCS: 64415; 76942; 29827; 29826; 29824; C1713; Q4212; J2250; J0690; J2405; J2001; J3010; J2795; J2370; J0330; J2704

== ENCOUNTER → 2020-04-13 | Outpatient (CLI) | payer MEDICARE ==
[2020-04-13 13:47] LABS: Basophils # (A) 0.1 k/uL (0-0.2); Basophils % (A) 1 %; Eosinophils # (A) 0.1 k/uL (0-0.7); Eosinophils % (A) 3 %; HCT 44.6 % (34.0-46.0); HGB 13.9 gm/dL (11.4-16.0); Lymphocytes # (A) 1.4 k/uL (1.0-4.8); Lymphocytes % (A) 25 %; MCH 32.3 pg (25.0-35.0); MCHC 31.2 g/dL (31.0-37.0); MCV 103.5 fL (80.0-100.0); Macrocytosis Slight; Mean Platelet Volume 8.1; Monocytes # (A) 0.4 k/uL (0-1.0); Monocytes % (A) 7 %; Neutrophils # (A) 3.5 k/uL (1.3-7.7); Neutrophils % (A) 62 %; Platelet Count 220 k/uL (150-450); RBC 4.31 m/uL (3.80-5.40); RDW 14.1 % (11.5-15.5); WBC 5.7 k/uL (3.8-10.6)
[2020-04-13 15:01] LABS: Amorphous Sediment,Urine Rare /hpf; Appearance,Urine Turbid (Clear); Bacteria,Urine Many /hpf; Bilirubin,Urine Negative (Negative); Blood,Urine Small (Negative); Color,Urine Yellow; Glucose,Urine (UA) Negative (Negative); Ketones,Urine Negative (Negative); Leukocyte Esterase,Urine Large (Negative); Mucus,Urine Rare /hpf; Nitrite,Urine Negative (Negative); Protein,Urine Trace (Negative); RBC,Urine 9 /hpf (0-5); Specific Gravity,Urine 1.008 (1.001-1.035); Squamous Epithelial Cell,Urine 2 /hpf (0-4); Urobilinogen,Urine <2.0 mg/dL (<2.0); WBC,Urine >182 /hpf (0-5)
[2020-04-13 18:53] LABS: % Iron Saturation 28.27 (12.00-45.00); African American GFR (CKD) 44.9 (60.0-200.0); Albumin 4.5 g/dL (3.80-4.90); Albumin/Globulin Ratio 1.88 (1.60-3.17); Anion Gap 8.8 mmol/L (4.00-12.00); BUN/Creat Ratio 14.62 Ratio (12.00-20.00); Calcium 9.3 mg/dL (8.7-10.3); Carbon Dioxide 25.2 mmol/L (21.6-31.8); Globulin 2.4 g/dL (1.6-3.3); Non-African American GFR(CKD) 38.7 (60.0-200.0); Potassium 4.3 mmol/L (3.5-5.5); Total Bilirubin 0.4 mg/dL (0.2-1.2); Total Protein 6.9 g/dL (6.2-8.2)
[2020-04-13 19:57] LABS: Ferritin 65.8 ng/mL (10.0-291.0)
== END | disposition home or self-care (01) ==
LOC: LABWHC1 13:08
PROVIDERS: ATTEND Nurse Practitioner Family
DX: N18.3 Chronic kidney disease, stage 3 (moderate) (principal); D63.1 Anemia in chronic kidney disease; E55.9 Vitamin D deficiency, unspecified; N39.0 Urinary tract infection, site not specified
CPT/HCPCS: 36415; 80053; 81001; 82043; 82306; 82570; 82728; 83540; 83550; 85025

== ENCOUNTER → 2020-04-29 | Outpatient (CLI) | payer MEDICARE ==
--- NOTE | 2020-04-29 09:20 | US ---
EXAMINATION TYPE: US kidneys/renal and bladder DATE OF EXAM: 04/29/2020 COMPARISON: US 2019 CLINICAL HISTORY: N18.3 CKD stage 3. CKD stage 3, lower back pain x couple months, frequent UTI's EXAM MEASUREMENTS: Right Kidney: 9.7 x 4.8 x 3.7 cm Left Kidney: 10.5 x 5.4 x 4.2 cm Right Kidney: no hydronephrosis or masses seen Left Kidney: no hydronephrosis or masses seen Bladder: wnl Bilateral Jets seen: no There is no evidence for hydronephrosis at this point in time. No nephrolithiasis is seen. No faustino s are identified. The urinary bladder is anechoic. Bilateral ureteral jets are seen. IMPRESSION: No distinct abnormality is appreciated.
[2020-04-29 10:06] LABS: Albumin 4.2 g/dL (3.5-5.0); Calcium 8.7 mg/dL (8.4-10.2); Potassium 4.9 mmol/L (3.5-5.1); Total Bilirubin 0.4 mg/dL (0.2-1.3); Total Protein 7.1 g/dL (6.3-8.2)
== END | disposition home or self-care (01) ==
LOC: RADUSWWP 08:05
PROVIDERS: ATTEND Internal Medicine Nephrology
DX: N18.3 Chronic kidney disease, stage 3 (moderate) (principal)
CPT/HCPCS: 36415; 76770; 80053

== ENCOUNTER 2020-07-07 14:05 | Emergency (ER) | payer MEDICARE ==
[2020-07-07 14:21] VITALS: TEMP 98.9
[2020-07-07] MEDS ORDERED: ACETAMINOPHEN TAB 325 MG TAB PO STA (15:05)
[2020-07-07] MEDS ORDERED: MORPHINE SULFATE 2 MG/ML SYRINGE IVP STA (15:05)
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
--- NOTE | 2020-07-07 15:31 | XR ---
EXAMINATION TYPE: XR knee complete LT DATE OF EXAM: 07/07/2020 CLINICAL HISTORY: pain TECHNIQUE: Three views of the left knee are obtained. COMPARISON: None. FINDINGS: There is no acute fracture/dislocation. The tri-compartment joint spaces appear within no rmal limits. The overlying soft tissue appears unremarkable. IMPRESSION: There is no acute fracture or dislocation ICD 10 NO FRACTURE, INITIAL EVALUATION
--- NOTE | 2020-07-07 15:32 | XR ---
EXAMINATION TYPE: XR shoulder complete RT DATE OF EXAM: 07/07/2020 CLINICAL HISTORY: pain TECHNIQUE: Three views of the right shoulder are obtained. COMPARISON: None FINDINGS: There is no acute fracture/dislocation evident. The acromioclavicular and glenohumeral patience int spaces appear mildly narrowed.. The visualized ribs are intact and unremarkable. IMPRESSION: 1. There is no acute fracture or dislocation. ICD 10 NO FRACTURE, INITIAL EVALUATION
--- NOTE | 2020-07-07 16:06 | US ---
EXAMINATION TYPE: US venous doppler duplex LE LT DATE OF EXAM: 07/07/2020 3:55 PM COMPARISON: NONE CLINICAL HISTORY: Left leg pain, missy posterior knee. Pain SIDE PERFORMED: Left TECHNIQUE: The lower extremity deep venous system is examined utilizing real time linear array sonog isrrael with graded compression, doppler sonography and color-flow sonography. VESSELS IMAGED: Common Femoral Vein Deep Femoral Vein Greater Saphenous Vein * Femoral Vein Popliteal Vein Small Saphenous Vein * Proximal Calf Veins (* superficial vessels) Left Leg: Negative for DVT Grayscale, color doppler, spectral doppler imaging performed of the deep veins of the left lower extr emity. There is normal flow, compressibility, vascular waveforms. IMPRESSION: No ultrasound evidence for acute DVT in the left lower extremity.
[2020-07-07] MEDS ORDERED: HYDROcodone/APAP 5-325MG 1 EACH TAB PO STA (16:44)
[2020-07-07 16:59] VITALS: BP 131/48; PULSE 82; RESP 20
== END 2020-07-07 17:43 | disposition home or self-care (01) ==
LOC: EC 14:05
DX: M79.605 Pain in left leg (principal); M25.511 Pain in right shoulder; R06.2 Wheezing; E78.5 Hyperlipidemia, unspecified; I10 Essential (primary) hypertension; J44.9 Chronic obstructive pulmonary disease, unspecified; K21.9 Gastro-esophageal reflux disease without esophagitis; F41.9 Anxiety disorder, unspecified; F32.9 Major depressive disorder, single episode, unspecified; Z79.899 Other long term (current) drug therapy; Z88.5 Allergy status to narcotic agent; Z91.040 Latex allergy status; Z91.048 Other nonmedicinal substance allergy status; Z88.6 Allergy status to analgesic agent; Z88.0 Allergy status to penicillin; Z88.8 Allergy status to other drugs, medicaments and biological substances; Z88.1 Allergy status to other antibiotic agents; Z88.2 Allergy status to sulfonamides; Z97.3 Presence of spectacles and contact lenses; Z87.891 Personal history of nicotine dependence; Z85.828 Personal history of other malignant neoplasm of skin
CPT/HCPCS: 96374; 99285

== ENCOUNTER → 2020-10-14 | Outpatient (CLI) | payer MEDICARE ==
[2020-10-15 06:01] LABS: Cardiolipin Ab IgG Interp NEGATIVE (NEGATIVE); Cardiolipin Ab IgM Interp NEGATIVE (NEGATIVE); Cardiolipin IgA Antibody <0.5 U/mL; Cardiolipin IgM Antibody 0.3 U/mL
[2020-10-15 09:45] LABS: Uric Acid 8.9 mg/dL (2.9-7.7)
[2020-10-15 11:09] LABS: Free Kappa Lt Chain Qnt, Serum 2.75 mg/dL (0.33-1.94)
[2020-10-15 12:06] LABS: HLA B27 NEGATIVE
[2020-10-15 12:53] LABS: Hepatitis B Surface Antigen Non-Reactive (Non-Reactive); Hepatitis C IgG Antibody Non-Reactive (Non-Reactive)
[2020-10-15 14:07] LABS: Histone Antibody 0.5 UNITS (<1.0)
[2020-10-15 14:40] LABS: Angiotensin-1 Converting Enz. 37 U/L (8-52)
[2020-10-15 14:44] LABS: Aldolase 4.8 U/L (1.2-7.6)
[2020-10-15 15:04] LABS: C-ANCA <1:20 Titer (<1:20)
[2020-10-15 17:51] LABS: Protein, Total 7.5 g/dL (6.2-8.2)
[2020-10-25 11:13] LABS: Albumin 3.72 g/dL (3.80-4.90); Gamma Globulin 0.85 g/dL (0.70-1.50)
== END | disposition home or self-care (01) ==
LOC: LABWHC1 15:27
PROVIDERS: ATTEND Family Medicine
DX: R76.8 Other specified abnormal immunological findings in serum (principal)
CPT/HCPCS: 36415; 82085; 82164; 82306; 82550; 83516; 83520; 83883; 84165; 84550; 85613; 85730; 86038; 86147; 86255; 86334; 86803; 86812; 87340

== ENCOUNTER → 2020-10-29 | Outpatient (CLI) | payer MEDICARE ==
[2020-10-29 12:54] LABS: Appearance,Urine Cloudy (Clear); Bilirubin,Urine Negative (Negative); Blood,Urine Negative (Negative); Color,Urine Light Yellow; Glucose,Urine (UA) Negative (Negative); Ketones,Urine Negative (Negative); Leukocyte Esterase,Urine Trace (Negative); Nitrite,Urine Negative (Negative); PH, Urine 6.5 (5.0-8.0); Protein,Urine 1+ (Negative); RBC,Urine <1 /hpf (0-5); Specific Gravity,Urine 1.013 (1.001-1.035); Squamous Epithelial Cell,Urine 1 /hpf (0-4); Urobilinogen,Urine <2.0 mg/dL (<2.0); WBC,Urine 6 /hpf (0-5)
[2020-10-29 19:26] LABS: HCT 44.4 % (37.2-46.3); HGB 13.4 g/dL (12.0-15.0); MCH 31.9 pg (27.0-32.0); MCHC 30.2 g/dL (32.0-37.0); MCV 105.7 fL (80.0-97.0); Platelet Count 255 X 10*3/uL (140-440); RDW 14.6 % (11.5-14.5); WBC 8.51 X 10*3/uL (4.50-10.00)
[2020-10-29 21:04] LABS: % Iron Saturation 18.58 (12.00-45.00); Albumin 4.6 g/dL (3.80-4.90); Albumin/Globulin Ratio 1.84 (1.60-3.17); Anion Gap 11.3 mmol/L (4.00-12.00); BUN/Creat Ratio 20.71 Ratio (12.00-20.00); Carbon Dioxide 23.7 mmol/L (21.6-31.8); Globulin 2.5 g/dL (1.6-3.3); Non-African American GFR(CKD) 35.4 (60.0-200.0); Phosphorus 3.5 mg/dL (2.4-5.1); Potassium 4.8 mmol/L (3.5-5.5); Total Bilirubin 0.3 mg/dL (0.2-1.2); Total Protein 7.1 g/dL (6.2-8.2); Uric Acid 5.4 mg/dL (2.9-7.7)
[2020-10-29 21:11] LABS: Ferritin 58.3 ng/mL (10.0-291.0)
[2020-11-01 14:35] LABS: APTT 34 Sec(s) (<43); DRVVT 1:1 Mix 40 Sec(s) (<44); Dilute Russell Viper Venom 47 Sec(s) (<44)
== END | disposition home or self-care (01) ==
LOC: LABWHC1 11:19
PROVIDERS: ATTEND Psychiatry & Neurology Neurology
DX: E11.42 Type 2 diabetes mellitus with diabetic polyneuropathy (principal); E55.9 Vitamin D deficiency, unspecified; D64.9 Anemia, unspecified; N18.32 Chronic kidney disease, stage 3b; N25.81 Secondary hyperparathyroidism of renal origin; N39.0 Urinary tract infection, site not specified; M10.9 Gout, unspecified; R76.8 Other specified abnormal immunological findings in serum
CPT/HCPCS: 36415; 80053; 81001; 82306; 82607; 82728; 83540; 83550; 83735; 83970; 84100; 84550; 85027; 85613; 85730

== ENCOUNTER → 2020-11-19 | Outpatient (CLI) | payer MEDICARE ==
--- NOTE | 2020-11-19 13:57 | US ---
EXAMINATION TYPE: US kidneys/renal and bladder DATE OF EXAM: 11/19/2020 COMPARISON: US 04/29/20 CLINICAL HISTORY: N30.20 Other chronic cystitis without hematuria. EXAM MEASUREMENTS: Right Kidney: 12.1 x 5.2 x 5.3 cm cm Left Kidney: 11.9 x 5.0 x 4.7 cm cm Post Void Residual Volume: mL Right Kidney: No hydronephrosis or masses seen Left Kidney: No hydronephrosis or masses seen Bladder: wnl Bilateral Jets seen: Yes Normal Post Void Residual: No, 128.9 ml No hydronephrosis or nephrolithiasis. bilateral subcentimeter cysts., Bilateral renal cortical thinning. IMPRESSION: 1. Bilateral renal cortical thinning with no hydronephrosis or nephrolithiasis. Correlate for chronic medical renal disease. 2. Subcentimeter hypoechoic renal lesions statistically most likely in the basis of simple cyst
== END | disposition home or self-care (01) ==
LOC: RADUSWWP 10:56
PROVIDERS: ATTEND Urology
DX: N30.20 Other chronic cystitis without hematuria (principal)
CPT/HCPCS: 76770

== ENCOUNTER → 2021-01-19 | Outpatient (CLI) | payer MEDICARE ==
[2021-01-19 15:37] LABS: Appearance,Urine Turbid (Clear); Bacteria,Urine Moderate /hpf; Bilirubin,Urine Negative (Negative); Blood,Urine Small (Negative); Color,Urine Yellow; Glucose,Urine (UA) Negative (Negative); Ketones,Urine Negative (Negative); Leukocyte Esterase,Urine Large (Negative); Nitrite,Urine Positive (Negative); Protein,Urine 1+ (Negative); RBC,Urine 4 /hpf (0-5); Specific Gravity,Urine 1.019 (1.001-1.035); Squamous Epithelial Cell,Urine 6 /hpf (0-4); Urobilinogen,Urine <2.0 mg/dL (<2.0); WBC,Urine >182 /hpf (0-5)
[2021-01-19 19:30] LABS: HGB 13.6 g/dL (12.0-15.0); MCH 32.5 pg (27.0-32.0); MCHC 31.6 g/dL (32.0-37.0); MCV 102.9 fL (80.0-97.0); Mean Platelet Volume 10.8 fL (9.5-12.2); Platelet Count 243 X 10*3/uL (140-440); RBC 4.18 X 10*6/uL (4.10-5.20); RDW 15.4 % (11.5-14.5); WBC 8.85 X 10*3/uL (4.50-10.00)
[2021-01-19 21:21] LABS: Albumin 4.3 g/dL (3.80-4.90); Albumin/Globulin Ratio 1.59 (1.60-3.17); Anion Gap 8.7 mmol/L (4.00-12.00); BUN/Creat Ratio 16.43 Ratio (12.00-20.00); Calcium 9.9 mg/dL (8.7-10.3); Carbon Dioxide 21.3 mmol/L (21.6-31.8); Globulin 2.7 g/dL (1.6-3.3); Magnesium 1.8 mg/dL (1.5-2.4); Non-African American GFR(CKD) 35.4 (60.0-200.0); Phosphorus 3.1 mg/dL (2.4-5.1); Potassium 4.5 mmol/L (3.5-5.5); Total Bilirubin 0.3 mg/dL (0.2-1.2); Uric Acid 7.7 mg/dL (2.9-7.7)
[2021-01-19 22:40] LABS: Ferritin 434.4 ng/mL (10.0-291.0)
== END | disposition home or self-care (01) ==
LOC: LABWHC1 14:46
PROVIDERS: ATTEND Internal Medicine
DX: N18.32 Chronic kidney disease, stage 3b (principal); M10.9 Gout, unspecified; E55.9 Vitamin D deficiency, unspecified; E21.3 Hyperparathyroidism, unspecified; N39.0 Urinary tract infection, site not specified; D64.9 Anemia, unspecified
CPT/HCPCS: 36415; 80053; 81001; 82306; 82728; 83540; 83550; 83735; 83970; 84100; 84550; 85027

== ENCOUNTER → 2021-01-25 | Outpatient (CLI) | payer MEDICARE ==
--- NOTE | 2021-01-26 07:01 | US ---
EXAMINATION TYPE: US venous doppler duplex LE LT DATE OF EXAM: 01/25/2021 4:35 PM COMPARISON: CLINICAL HISTORY: M79.662 pain, R22.42 swelling. Baby aspirin. Patient has leg discoloration that st arted today. No swelling. SIDE PERFORMED: Left TECHNIQUE: The lower extremity deep venous system is examined utilizing real time linear array sonog isrrael with graded compression, doppler sonography and color-flow sonography. VESSELS IMAGED: Common Femoral Vein Deep Femoral Vein Greater Saphenous Vein * Femoral Vein Popliteal Vein (* superficial vessels) Left Leg: Negative for DVT IMPRESSION: Grayscale, color doppler, spectral doppler imaging performed of the deep veins of the lo wer extremities. There is normal flow, compressibility, vascular waveforms.
== END | disposition home or self-care (01) ==
LOC: RADUSWWP 16:14
PROVIDERS: ATTEND Internal Medicine Hematology & Oncology
DX: M79.662 Pain in left lower leg (principal); R22.42 Localized swelling, mass and lump, left lower limb

== ENCOUNTER 2021-05-08 16:04 | Inpatient (IN) | payer MEDICARE ==
[2021-05-08] MEDS ORDERED: SODIUM CHLORIDE 0.9% 500 ML 500 ML IV STA (16:19)
[2021-05-08 16:54] LABS: Basophils % (A) 1 %; Eosinophils # (A) 0.1 k/uL (0-0.7); Eosinophils % (A) 2 %; HCT 45.5 % (34.0-46.0); HGB 14.6 gm/dL (11.4-16.0); Lymphocytes # (A) 0.8 k/uL (1.0-4.8); Lymphocytes % (A) 14 %; MCH 34.6 pg (25.0-35.0); MCHC 32.1 g/dL (31.0-37.0); MCV 107.6 fL (80.0-100.0); Macrocytosis Moderate; Mean Platelet Volume 8.9; Monocytes # (A) 0.4 k/uL (0-1.0); Monocytes % (A) 7 %; Neutrophils # (A) 4.6 k/uL (1.3-7.7); Neutrophils % (A) 76 %; Platelet Count 226 k/uL (150-450); RBC 4.23 m/uL (3.80-5.40); RDW 14.2 % (11.5-15.5); WBC 6.1 k/uL (3.8-10.6)
[2021-05-08 17:10] LABS: Appearance,Urine Turbid (Clear); Bacteria,Urine Moderate /hpf; Bilirubin,Urine Negative (Negative); Blood,Urine Moderate (Negative); Budding Yeast,Urine Few /hpf; Color,Urine Yellow; Glucose,Urine (UA) Negative (Negative); Ketones,Urine Trace (Negative); Leukocyte Esterase,Urine Large (Negative); Nitrite,Urine Negative (Negative); PH, Urine 7.5 (5.0-8.0); Protein,Urine 3+ (Negative); RBC,Urine 18 /hpf (0-5); Specific Gravity,Urine 1.016 (1.001-1.035); Squamous Epithelial Cell,Urine 1 /hpf (0-4); Urobilinogen,Urine <2.0 mg/dL (<2.0); WBC,Urine >182 /hpf (0-5)
[2021-05-08 17:15] LABS: INR 1.1 (<1.2); Prothrombin Time 11.3 sec (9.0-12.0)
[2021-05-08 17:16] LABS: Partial Thromboplastin Time 18.8 sec (22.0-30.0)
--- NOTE | 2021-05-08 18:10 | XR ---
EXAMINATION TYPE: XR chest 2V DATE OF EXAM: 05/08/2021 COMPARISON: 03/10/2020 HISTORY: Weakness TECHNIQUE: 2 views FINDINGS: Heart is enlarged. There is no heart failure. Costophrenic angles are clear. There are no h ilar masses. Thoracic aorta is atheromatous. IMPRESSION: Cardiomegaly. No pulmonary consolidation or heart failure. No adverse change.
[2021-05-08 19:46] LABS: Albumin 4.4 g/dL (3.5-5.0); Total Bilirubin 1.1 mg/dL (0.2-1.3); Total Protein 7.8 g/dL (6.3-8.2)
[2021-05-08 19:54] LABS: Potassium 6.9 mmol/L (3.5-5.1)
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
[2021-05-08] MEDS ORDERED: SODIUM CHLORIDE 0.9% 1,000 ML IV ONE (20:00)
[2021-05-08] MEDS ORDERED: ONDANSETRON 4 MG/2 ML VIAL IVP PRN (20:00)
[2021-05-08] MEDS ORDERED: NALOXONE 0.4 MG/ML 1 ML VIAL IV PRN (20:00)
[2021-05-08] MEDS ORDERED: bisacodyL 5 MG TABLET.DR PO PRN (20:00)
[2021-05-08] MEDS ORDERED: Acetaminophen-Codeine 300-30mg TAB PO PRN (20:00)
[2021-05-08] MEDS ORDERED: TEMAZEPAM 15 MG CAP PO PRN (20:00)
[2021-05-08 20:25] LABS: Calcium 9.6 mg/dL (8.4-10.2); Potassium 5.3 mmol/L (3.5-5.1); Total Bilirubin 0.7 mg/dL (0.2-1.3); Total Protein 7.1 g/dL (6.3-8.2)
[2021-05-08] MEDS ORDERED: PRAVASTATIN SODIUM 80 MG TAB PO SCH (21:00)
[2021-05-08] MEDS: GABAPENTIN 300 MG CAP PO SCH (22:09)
[2021-05-08] MEDS: traZODone HCL 50 MG TAB PO SCH (22:09)
[2021-05-08] MEDS: amLODIPine 5 MG TAB PO SCH (22:09)
[2021-05-08] MEDS: LOSARTAN 25 MG TAB PO SCH (22:09)
[2021-05-09] MEDS ORDERED: IPRATROPIUM 0.5 MG/2.5 ML NEBU INHALATION SCH ×2 (08:00→09:19)
[2021-05-09] MEDS: ASPIRIN 81 MG PO SCH ×2 (09:21)
[2021-05-09] MEDS: LOSARTAN 25 MG TAB PO SCH (09:21)
[2021-05-09] MEDS ORDERED: PANTOPRAZOLE 40 MG/10 ML VIAL IVP SCH (10:45)
[2021-05-09] MEDS ORDERED: IPRATROPIUM-ALBUTEROL 3 ML NEB INHALATION PRN (10:45)
[2021-05-09 11:27] LABS: HCT 40.1 % (34.0-46.0); HGB 12.6 gm/dL (11.4-16.0); MCH 34.9 pg (25.0-35.0); MCHC 31.4 g/dL (31.0-37.0); MCV 111.1 fL (80.0-100.0); Macrocytosis Marked; Mean Platelet Volume 8.5; Platelet Count 201 k/uL (150-450); RBC 3.61 m/uL (3.80-5.40); RDW 14.5 % (11.5-15.5); WBC 6.2 k/uL (3.8-10.6)
[2021-05-09 11:37] LABS: African American GFR (CKD) 28 (>60 ml/min/1.73 sqM); Anion Gap 9 mmol/L; Blood Urea Nitrogen 49 mg/dL (7-17); Calcium 9.3 mg/dL (8.4-10.2); Carbon Dioxide 20 mmol/L (22-30); Chloride 114 mmol/L (98-107); Glucose 191 mg/dL (74-99); Non-African American GFR(CKD) 25 (>60 ml/min/1.73 sqM); Potassium 4.7 mmol/L (3.5-5.1); Sodium 143 mmol/L (137-145)
[2021-05-09] MEDS: IPRATROPIUM-ALBUTEROL 3 ML NEB INHALATION SCH ×3 (12:27→20:07)
[2021-05-09] MEDS: SYMBICORT 160-4.5 MCG INHALER INHALATION SCH ×2 (12:33→20:07)
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
--- NOTE | 2021-05-09 16:44 | CT ---
EXAMINATION TYPE: CT brain wo con DATE OF EXAM: 05/09/2021 COMPARISON: None HISTORY: Altered mental status. CT DLP: 1066 mGycm Automated exposure control for dose reduction was used. There is cerebral cortical atrophy. There is no mass effect or midline shift. There is no sign of int racranial hemorrhage. There is moderate patchy hypodensity in the periventricular white matter. Oswald rium is intact skull base is intact. IMPRESSION: Cerebral atrophy and moderate chronic small vessel ischemia. No acute intracranial abnormality.
[2021-05-09] MEDS: VERAPAMIL SR 120 MG TABLET.ER PO SCH (18:03)
[2021-05-09] MEDS: ALPRAZolam 0.5 MG TAB PO PRN (21:38)
[2021-05-09] MEDS: GABAPENTIN 300 MG CAP PO SCH (21:38)
[2021-05-09] MEDS: traZODone HCL 50 MG TAB PO SCH (21:39)
[2021-05-09] MEDS: amLODIPine 5 MG TAB PO SCH ×2 (21:40→21:48)
[2021-05-09] MEDS: MIRTAZAPINE 15 MG TAB PO SCH (21:48)
[2021-05-09] MEDS: ESCITALOPRAM 20 MG TAB PO SCH (21:49)
[2021-05-09] MEDS: traMADol 50 MG TAB PO PRN (21:53)
[2021-05-10 06:22] LABS: Basophils # (A) 0.1 k/uL (0-0.2); Basophils % (A) 1 %; Eosinophils # (A) 0.3 k/uL (0-0.7); Eosinophils % (A) 4 %; HCT 35.3 % (34.0-46.0); HGB 11.5 gm/dL (11.4-16.0); Lymphocytes # (A) 1.6 k/uL (1.0-4.8); Lymphocytes % (A) 23 %; MCH 36.2 pg (25.0-35.0); MCHC 32.6 g/dL (31.0-37.0); MCV 111.1 fL (80.0-100.0); Macrocytosis Marked; Mean Platelet Volume 8.2; Monocytes # (A) 0.5 k/uL (0-1.0); Monocytes % (A) 7 %; Neutrophils # (A) 4.4 k/uL (1.3-7.7); Neutrophils % (A) 62 %; Platelet Count 180 k/uL (150-450); RBC 3.18 m/uL (3.80-5.40); RDW 14.5 % (11.5-15.5); WBC 7.1 k/uL (3.8-10.6)
[2021-05-10 06:37] LABS: African American GFR (CKD) 30 (>60 ml/min/1.73 sqM); Anion Gap 8 mmol/L; Blood Urea Nitrogen 43 mg/dL (7-17); Calcium 8.8 mg/dL (8.4-10.2); Carbon Dioxide 19 mmol/L (22-30); Chloride 115 mmol/L (98-107); Creatine Kinase 820 U/L (30-135); Glucose 108 mg/dL (74-99); Non-African American GFR(CKD) 26 (>60 ml/min/1.73 sqM); Sodium 142 mmol/L (137-145)
[2021-05-10] MEDS: SYMBICORT 160-4.5 MCG INHALER INHALATION SCH ×2 (07:25→20:23)
[2021-05-10] MEDS: IPRATROPIUM-ALBUTEROL 3 ML NEB INHALATION SCH ×4 (07:25→20:23)
[2021-05-10] MEDS: amLODIPine 5 MG TAB PO SCH ×2 (08:13→21:20)
[2021-05-10] MEDS: PANTOPRAZOLE 40 MG TABLET PO SCH (08:15)
[2021-05-10] MEDS: VERAPAMIL SR 120 MG TABLET.ER PO SCH (08:15)
[2021-05-10] MEDS: ESCITALOPRAM 20 MG TAB PO SCH (08:15)
[2021-05-10] MEDS: ASPIRIN 81 MG PO SCH ×2 (08:16→12:41)
[2021-05-10] MEDS: traMADol 50 MG TAB PO PRN ×3 (08:16→21:21)
--- NOTE | 2021-05-10 12:34 | XR ---
Chest x-ray with left RIBS HISTORY: Left rib pain, hypoxia Frontal view of the chest, 2 views of the left ribs submitted and correlated prior chest x-ray dated 05/08/[address] chest 05/16/2018 Surgical clips are noted superimposed over the lateral left second rib, question prior left first rib resection, segmental areas of ossification are again noted and stable. The heart appears enlarged, t here are prominent epicardial fat pads. Aorta is dense. There is no evident pneumothorax or pleural e ffusion. Degenerative changes are present in the visualized spine. Pleural thickening laterally along the hemithoraces is again noted. There are coronary artery calcifications present. Degenerative sparks ge present in the visualized spine. Lower ribs are not well seen due to technique. Patient is rotated . There is likely a distal acromial spur on the left, arthropathy is present at the right acromioclav icular joint. IMPRESSION: Postop changes. Appearance of enlarged heart and the contributed by the epicardial fat pa d prominence. Limitations as described. Bone scan may be of benefit to assess for occult fracture as indicated.
[2021-05-10] MEDS: GABAPENTIN 300 MG CAP PO SCH (21:21)
[2021-05-10] MEDS: MIRTAZAPINE 15 MG TAB PO SCH (21:21)
[2021-05-10] MEDS: traZODone HCL 50 MG TAB PO SCH (21:21)
[2021-05-10] MEDS: ALPRAZolam 0.5 MG TAB PO PRN (21:21)
[2021-05-11 06:54] LABS: African American GFR (CKD) 34 (>60 ml/min/1.73 sqM); Anion Gap 6 mmol/L; Blood Urea Nitrogen 36 mg/dL (7-17); Calcium 8.8 mg/dL (8.4-10.2); Carbon Dioxide 21 mmol/L (22-30); Chloride 111 mmol/L (98-107); Creatine Kinase 517 U/L (30-135); Glucose 111 mg/dL (74-99); Non-African American GFR(CKD) 30 (>60 ml/min/1.73 sqM); Sodium 138 mmol/L (137-145)
[2021-05-11 07:10] VITALS: RESP 16
[2021-05-11] MEDS: PANTOPRAZOLE 40 MG TABLET PO SCH (08:18)
[2021-05-11] MEDS: ESCITALOPRAM 20 MG TAB PO SCH (08:18)
[2021-05-11] MEDS: amLODIPine 5 MG TAB PO SCH (08:19)
[2021-05-11] MEDS: VERAPAMIL SR 120 MG TABLET.ER PO SCH (08:19)
[2021-05-11] MEDS: SYMBICORT 160-4.5 MCG INHALER INHALATION SCH (09:06)
[2021-05-11] MEDS: IPRATROPIUM-ALBUTEROL 3 ML NEB INHALATION SCH ×3 (09:06→15:09)
[2021-05-11 12:19] VITALS: BP 107/59; TEMP 98.8
[2021-05-11 15:19] VITALS: PULSE 82
--- NOTE | 2021-05-11 15:19 | P.DS ---
Providers Date of admission: 05/08/21 20:01 Expected date of discharge: 05/11/21 Attending physician: Enrique Main Consults: 05/10/21 13:33 Consult Physician Routine Consulting Provider: Ayleen Lira Consult Reason/Comments: Shortness of breath / COPD. Pt sees Dr. Lira in the community. Do you want consulting provider notified?: Yes Primary care physician: Enrique Main - Discharge Diagnosis(es) (1) Rhabdomyolysis Current Visit: Yes Status: Acute (2) Acute exacerbation of chronic obstructive airways disease Current Visit: No Status: Acute (3) At risk for readmission to hospital Current Visit: No Status: Acute (4) Dehydration Current Visit: No Status: Acute (5) Urinary tract bacterial infections Current Visit: Yes Status: Acute Hospital Course: This is a debilitated 81-year-old white female who was admitted through the emergency department after an unknown down time was found in the urine and feces she was down approximately 2-4 days according to reports and family. She was found to have a urinary tract infection with profound weakness and rhabdomyolysis. She was felt that family cannot leave her alone and they wished for her to go to medical [place] in [facility] and then after live with them on the [place] side of [facility]. She is agreeable to this plan at this time Patient Condition at Discharge: Fair Plan - Discharge Summary Discharge Rx Participant: No New Discharge Prescriptions: New RX: Ipratropium-Albuterol Nebulize [Duoneb 0.5 mg-3 mg/3 ml Soln] 3 ml INHALATION RT-QID ml RX: bisacodyL [Dulcolax] 5 mg PO DAILY PRN tab PRN Reason: Constipation RX: Pantoprazole [Protonix] 40 mg PO DAILY tab RX: Budesonide-Formot 160-4.5 Mcg [Symbicort 160-4.5 Mcg Inhaler] 2 puff IN HALATION RT-BID gm RX: Ciprofloxacin [Ciprofloxacin Oral Susp] 250 mg PO BID #14 cap Continue RX: Pravastatin Sodium [Pravachol] 80 mg PO HS RX: Escitalopram [Lexapro] 20 mg PO DAILY RX: traZODone HCL 50 mg PO HS RX: Allopurinol [Zyloprim] 200 mg PO DAILY RX: traMADol HCL 50 mg PO Q6H PRN PRN Reason: Pain RX: Verapamil HCl [Verapamil ER] 120 mg PO DAILY RX: Gabapentin 300 mg PO DAILY PRN PRN Reason: Pain RX: Mirtazapine [Remeron] 15 mg PO HS RX: amLODIPine [Norvasc] 5 mg PO DAILY RX: ALPRAZolam [Xanax] 0.5 mg PO BID PRN PRN Reason: Anxiety Discontinued Meloxicam [Mobic] 15 mg PO DAILY Discharge Medication List RX: Pravastatin Sodium [Pravachol] 80 mg PO HS 05/17/16 [History] RX: Escitalopram [Lexapro] 20 mg PO DAILY 07/24/18 [History] RX: traZODone HCL 50 mg PO HS 09/08/19 [History] RX: Allopurinol [Zyloprim] 200 mg PO DAILY 12/17/20 [History] RX: Gabapentin 300 mg PO DAILY PRN 12/17/20 [History] RX: ALPRAZolam [Xanax] 0.5 mg PO BID PRN 05/09/21 [History] RX: Mirtazapine [Remeron] 15 mg PO HS 05/09/21 [History] RX: Verapamil HCl [Verapamil ER] 120 mg PO DAILY 05/09/21 [History] RX: amLODIPine [Norvasc] 5 mg PO DAILY 05/09/21 [History] RX: traMADol HCL 50 mg PO Q6H PRN 05/09/21 [History] RX: Budesonide-Formot 160-4.5 Mcg [Symbicort 160-4.5 Mcg Inhaler] 2 puff INHALATION RT-BID gm 05/11/21 [Rx] RX: Ciprofloxacin [Ciprofloxacin Oral Susp] 250 mg PO BID #14 cap 05/11/21 [Rx] RX: Ipratropium-Albuterol Nebulize [Duoneb 0.5 mg-3 mg/3 ml Soln] 3 ml INHA LATION RT-QID ml 05/11/21 [Rx] RX: Pantoprazole [Protonix] 40 mg PO DAILY tab 05/11/21 [Rx] RX: bisacodyL [Dulcolax] 5 mg PO DAILY PRN tab 05/11/21 [Rx] Follow up Appointment(s)/Referral(s): Enrique Main DO [Primary Care Provider] - 2 Weeks Discharge Disposition: TRANSFER TO SNF/F
== END 2021-05-11 16:50 | DRG 871 ==
LOC: EC 16:04 → 5NMEDONC 20:01
PROVIDERS: ADMIT Family Medicine; ATTEND Family Medicine
DX: A41.9 Sepsis, unspecified organism (principal); G93.41 Metabolic encephalopathy; J96.01 Acute respiratory failure with hypoxia; E87.2 Acidosis; J44.1 Chronic obstructive pulmonary disease with (acute) exacerbation; N17.9 Acute kidney failure, unspecified; Z20.822 Contact with and (suspected) exposure to COVID-19; N18.4 Chronic kidney disease, stage 4 (severe); N39.0 Urinary tract infection, site not specified; M62.82 Rhabdomyolysis; I12.9 Hypertensive chronic kidney disease with stage 1 through stage 4 chronic kidney disease, or unspecified chronic kidney disease; E11.22 Type 2 diabetes mellitus with diabetic chronic kidney disease; E66.9 Obesity, unspecified; E78.5 Hyperlipidemia, unspecified; E86.0 Dehydration; E87.5 Hyperkalemia; F17.210 Nicotine dependence, cigarettes, uncomplicated; F32.9 Major depressive disorder, single episode, unspecified; F41.9 Anxiety disorder, unspecified; I44.4 Left anterior fascicular block; K21.9 Gastro-esophageal reflux disease without esophagitis; K57.90 Diverticulosis of intestine, part unspecified, without perforation or abscess without bleeding; M19.90 Unspecified osteoarthritis, unspecified site; Z68.33 Body mass index [BMI] 33.0-33.9, adult; Z79.1 Long term (current) use of non-steroidal anti-inflammatories (NSAID); W19.XXXA Unspecified fall, initial encounter; Z79.51 Long term (current) use of inhaled steroids; Z79.82 Long term (current) use of aspirin; Z79.899 Other long term (current) drug therapy; Z85.828 Personal history of other malignant neoplasm of skin; Z86.711 Personal history of pulmonary embolism; Z90.710 Acquired absence of both cervix and uterus; Z96.1 Presence of intraocular lens; Z67.11 Type A blood, Rh negative; Z88.5 Allergy status to narcotic agent; Z91.040 Latex allergy status; Z91.048 Other nonmedicinal substance allergy status; Z90.49 Acquired absence of other specified parts of digestive tract; Z88.0 Allergy status to penicillin; Z88.1 Allergy status to other antibiotic agents; Z88.2 Allergy status to sulfonamides
CPT/HCPCS: 36415; 70450; 71046; 80048; 80053; 81001; 82550; 83605; 83735; 83880; 84484; 85025; 85027; 85610; 85730; 87077; 87086; 87186; 87635; 93005; 94640; 94760; 96361; 96365; 99285